=== PATIENT | male | born 1960 | race Caucasian/White ===

== ENCOUNTER 2022-07-19 22:31 | Emergency (ER) | payer OTHER, SELFPAY ==
[2022-07-19 22:32] VITALS: BP 173/110; PULSE 77; RESP 16; TEMP 36.8; O2SAT 96; BMI 35.9
[2022-07-19] MEDS: Diphth,Pertuss(Acell),Tet Vac 0.5 ML Vial IM (23:16)
--- NOTE | 2022-07-20 00:34 | EX.ED.GENINJ ---
HPI History of Present Illness Chief Complaint: Laceration Informant: patient Narrative Narrative: About 7 or 8 hours ago the patient cut the skin on the tip of his right dominant hand ring finger when he was prying on a piece of metal. He did clean it and clean it with hydrogen peroxide. Last tetanus is probably greater than 10 years ago. His encouraged him to come in to get this taken care of. No other injury. It bled a little bit but compression and cleaning made it better. PFSH PFSH Medical History Laceration Allergy/AdvReac Type Severity Reaction Status Date / Time No Known Allergies Allergy Verified 07/19/22 22:33 Social History Smoking Status: Unknown if ever smoked ROS ROS ED Constitutional Constitutional ED: Denies chills or fever(s) Cardiovascular Cardiovascular: Denies chest pain Respiratory/Chest Respiratory/Chest: Denies cough Gastrointestinal Gastrointestinal: Denies nausea or vomiting Integumentary Reports other Details: See history of present illness. Neurologic Neurologic: Denies paresthesias or weakness Hematologic/Lymphatic Hematologic/Lymphatic: Denies easy bleeding or easy bruising EXAM Physical Exam Narrative Exam Narrative: Patient awake alert appropriate no acute distress sitting quietly in chair. HEENT shows no sign of trauma Lungs are clear breathing is easy and unlabored Heart rate is regular Evaluation extremities does reveal a C shaped laceration on the very distal tuft of his right ring finger. This is approximately 300 out of 360 degrees around. It is somewhat devitalized but still has a little bit of pink chest in the center. But I question its overall survivability. Range of motion of the finger including both flexor tendons and extensor tendon are normal. Sensation is intact. No sign of other injuries. Const Vital Signs: 07/19/22 22:32 Temperature 98.2 F Temperature Source Temporal Pulse Rate 77 Respiratory Rate 16 Blood Pressure 173/110 H Blood Pressure Mean 131 Pulse Ox 96 Oxygen Delivery Method Room Air MDM MDM MDM Narrative Medical decision making narrative: Procedure: Wound closure: Discussed options with the patient. We discussed using suturing but the flap is already adhered down. I am afraid suturing would place further holes in possibly further devitalized a thin flap that I already have questions of survivability. For this reason we did choose to glue around most of it leaving the area next to the nail unglued that would allow for drainage. The area was scrubbed and cleaned. I dried it. I put 3 layers of tissue adhesive. He tolerated this well. We explained care cleaning and keeping it covered. Return with redness swelling odor drainage fever swelling up the finger or red streaking up finger or arm. I have also explained to the patient that I question the survivability of this flap. But I would like to see if we can get tissue coverage to provide a better result. He had even mention just cutting off the bed that is remaining. But I think we have a better chance of survival than not. If we get survivability of this flap I think his overall outcome is better. Discharge Plan Triage Chief Complaint: Laceration ED Provider: Terence Mckeon Dx/Rx/DC Orders Clinical Impression: Laceration of right ring finger Instructions: ED Laceration: Skin Adhesive Primary Care Provider: Lisa Gonsales Referrals: Lisa Gonsales DO [Primary Care Provider] - 1 Week if not improving Disposition Disposition: Home, Self Care
== END 2022-07-20 00:52 | disposition home or self-care (01) ==
PROVIDERS: Emergency Provider Emergency Medicine; PCP Family Medicine; Visit Provider Emergency Medicine
DX: S61.214A Laceration without foreign body of right ring finger without damage to nail, initial encounter (principal); Z23 Encounter for immunization; W26.8XXA Contact with other sharp object(s), not elsewhere classified, initial encounter
CPT/HCPCS: 90471; 90715; 99282

== ENCOUNTER 2023-12-04 18:29 | Emergency (ER) | payer OTHER, SELFPAY ==
[2023-12-04] VITALS (8 sets, daily range): BP systolic 105–165; BP diastolic 68–133; PULSE 60–147; RESP 14–17; TEMP 36.1–36.3; O2SAT 92–98; BMI 37.7
--- NOTE | 2023-12-04 18:50 | EKG12_ITS ---
Test Reason : CP Blood Pressure : / mmHG Vent. Rate : 114 BPM Atrial Rate : 000 BPM P-R Int : 000 ms QRS Dur : 086 ms QT Int : 312 ms P-R-T Axes : 000 035 066 degrees QTc Int : 430 ms Atrial fibrillation with rapid ventricular response with premature ventricular or aberrantly conducte d complexes Nonspecific ST abnormality Abnormal ECG Confirmed by ALONDRA CALDWELL, MAYO ([id number]), newspaper editor DORINDA TATE ([id number]) on 12/07/2023 8:49:23 AM Referred By: Confirmed By:MAYO CANTU MD
--- NOTE | 2023-12-04 18:52 | ED.VIS.CHEST ---
HPI History of Present Illness Chief Complaint: Chest Pain Informant: patient, spouse/S.O. and family Narrative Narrative: Presents substernal chest tightness and sweatiness and half hour prior to arrival. Denies dyspnea or any radicular pain down his arm. Denies racing heart. With abnormal symptoms for months cannot recall the last time. States sometimes knows was eating. He states 2 days ago was chasing a groundhog he had transient symptoms. Sweats are new today. History of hypertension hyperlipidemia denies diabetes but denies tobacco. Denies family history of MIs at young age. Social alcohol history however quit drinking for a while now. Stress test 2 years ago no history of heart caths. Currently denies any symptoms. Reports was lifting a 5 gallon gas tank when he felt symptoms today. Prior Similar Symptoms: Yes CVD Risk Factors: Positive for Hypertension and Hypercholesterolemia; Negative for Diabetes, Family History 1' </=55 or Smoking PE Risk Factors: Negative for Recent Travel/Surgery, Recent Immobilization, Prior DVT or PE, Cancer or OCP + Smoking + >/=35 PFSH PFSH Medical History Laceration Home Medications ?Medication ?Instructions ?Recorded ?Last Taken ?Type apixaban 5 mg tablet (Eliquis) 5 mg PO BID #60 tabs 12/04/23 Unknown Rx lisinopril 20 mg tablet 20 mg PO DAILY 12/04/23 Unknown History omega 5-ola-ien-fish oil 300 2 cap PO BID 12/04/23 Unknown History mg-1,000 mg capsule (Fish Oil) pravastatin 40 mg tablet 40 mg PO DAILY 12/04/23 Unknown History Allergy/AdvReac Type Severity Reaction Status Date / Time No Known Allergies Allergy Verified 12/04/23 18:32 Social History Smoking Status: Never smoker ROS ROS ED Constitutional Constitutional ED: Denies chills, fever(s) or sweats Eyes Eyes: Denies change in vision ENT ENT ED: Denies dysphagia or sore throat Cardiovascular Cardiovascular: Reports chest pain; Denies leg edema, palpitations or racing heartbeat Respiratory/Chest Respiratory/Chest: Denies cough, dyspnea or dyspnea on exertion Gastrointestinal Gastrointestinal: Denies abdominal pain, diarrhea, nausea or vomiting Genitourinary Genitourinary ED: Denies dysuria, hematuria or urinary frequency Musculoskeletal Musculoskeletal: Denies back pain, extremity pain or neck pain Integumentary Denies rash or wounds Neurologic Neurologic: Denies headache(s), paresthesias or weakness EXAM Physical Exam Const Vital Signs: 12/04/23 18:30 12/04/23 18:30 12/04/23 18:46 Temperature 97 F L Temperature Source Temporal Pulse Rate 147 H 131 H Respiratory Rate 16 14 Blood Pressure 165/127 H 153/133 H 128/87 H Blood Pressure Mean 139 139 100 Pulse Ox 98 92 Oxygen Delivery Method Room Air Room Air 12/04/23 18:53 12/04/23 19:11 12/04/23 19:26 Temperature Temperature Source Pulse Rate 93 77 Respiratory Rate Blood Pressure 117/80 Blood Pressure Mean 92 Pulse Ox 92 Oxygen Delivery Method Room Air 12/04/23 20:00 12/04/23 21:00 12/04/23 22:00 Temperature Temperature Source Pulse Rate 82 61 60 Respiratory Rate 17 16 16 Blood Pressure 107/68 105/76 126/74 H Blood Pressure Mean 81 85 91 Pulse Ox 97 98 98 Oxygen Delivery Method Room Air Room Air Room Air 12/04/23 22:00 Temperature 97.3 F L Temperature Source Pulse Rate 60 Respiratory Rate 16 Blood Pressure 126/74 H Blood Pressure Mean 91 Pulse Ox 98 Oxygen Delivery Method Positive well nourished and well developed General Appearance ED: well developed and NAD HEENT Reports moist mucous membranes normocephalic and atraumatic Eyes EOMs intact bilaterally and conjunctivae normal General Eye ED: Yes normal appearance of both eyes Neck no lymphadenopathy and supple General: Negative for tenderness Chest Wall Chest: Negative for tenderness Resp normal respiratory effort and normal air movement Effort and Inspection: symmetric chest movement; Negative for respiratory distress Cardio no murmurs Rate: tachycardic Rhythm: abnormal rhythm Peripheral Pulses: pulses 2+ throughout GI normal to inspection, nondistended, normoactive bowel sounds and non-tender Palpation: Negative for guarding or rebound tenderness present Back/Spine no CVA tenderness and no thoracic nor lumbar tenderness Extremity normal to inspection General Extremety ED: Negative for edema or tenderness General Extremity: Negative for edema Neuro oriented x3 and no sensory deficits noted Sensorium / Orientation: awake and alert Skin no rashes or lesions noted and no wounds MDM MDM MDM Narrative Medical decision making narrative: Interventions / MDM: Differential diagnosis: Diagnosis considered but do not suspect: N/A My EKG interpretation: A-fib RVR rate of 114, no ST or T wave changes. EKG #2 at 2052 normal sinus rhythm rate of 68, no ST or T wave changes. Imaging independently reviewed and interpreted by myself: N/A External documents reviewed: N/A Test considered but not ordered:N/A ED course: Patient transient chest pain EKG A-fib with RVR. He denies palpitation symptoms. Blood pressure systolic 120s. Cardiac workup initiated will start Lopressor IV. Aspirin given for chest pains. With patient reporting intermittent chest symptoms on and off for the last month, and asymptomatic on his A-fib, unclear if he is having paroxysmal A-fib with his chest symptoms. Therefore we will hold off any cardioversion as blood pressure stable at this time. 2039: Status post 1 dose of Lopressor initial heart enzyme -1 view chest x-ray negative. Labs with creatinine of 2.0. No old for comparison. Patient does report chronic kidney disease stage III however unknown if ARB. He is currently with a GFR of 34, stage 3B. Has been no recent vomiting or diarrhea. Will give him IV fluids in case this is slightly worse than his previous. Blood pressure stable. On the media monitor he is in sinus rhythm rate in the high 50s. Will repeat EKG. He remains symptom-free. Repeat EKG now sinus rhythm. Was started on Eliquis. Awaiting delta troponin. Delta troponin negative per algorithm. Remains chest pain-free. Remains in sinus rhythm. Unable to start beta-blockers as he is already low on his heart rate. Prescription for Eliquis sent to his pharmacy. Cardiology follow-up given. Return precautions. All questions were answered. Re-evaluation: stable Disposition discussed with patient/family/significant other: Patient and significant other Case discussed with consulting clinician: N/A This note was generated with [employer] dictation software. It may contain incorrect words, spelling, and punctuation that were not noted in checking the note before signing. Lab Data Attestation: I reviewed the patient's lab results. Labs: Laboratory Results - last 24 hr 12/04/23 12/04/23 18:55 21:00 WBC 10.1 RBC 5.45 Hgb 16.5 Hct 46.7 MCV 85.7 MCH 30.3 MCHC 35.3 RDW Std Deviation 37.8 RDW Coeff of Ghulam 12.3 Plt Count 220 MPV 9.4 Immature Gran % (Auto) 0.400 Neut % (Auto) 63.2 Lymph % (Auto) 26.4 [place] % (Auto) 7.1 Eos % (Auto) 2.0 Baso % (Auto) 0.9 Absolute Neuts (auto) 6.4 Absolute Lymphs (auto) 2.67 Nucleated RBC % 0 PT 12.6 INR 0.9 APTT 27.7 Sodium 137 Potassium 3.9 Chloride 106 Carbon Dioxide 22.0 Anion Gap 9 BUN 29 H Creatinine 2.08 H Estim Creat Clear Calc 49.87 Est GFR (MDRD) Af Amer 42 L Est GFR (MDRD) Non-Af 34 L BUN/Creatinine Ratio 13.9 Glucose 266 H Calcium 9.1 Troponin I High Sens 13 26 TSH 2.05 Radiography Diagnostic Testing: Clinical Impression(s) from Imaging Studies Chest X-Ray 12/04/23 19:05 IMPRESSION: 1. Shallow inspiration mild basilar atelectasis. No focal infiltrate consolidation or effusion. Electronically Signed: Russell Mejia MD at 21:41 EDT , Discharge Plan Triage Chief Complaint: Chest Pain Other Complaint: Palpitations ED Provider: Isaias Carrion Dx/Rx/DC Orders Clinical Impression: Paroxysmal atrial fibrillation, Chest pain, CKD (chronic kidney disease) stage 3, GFR 30-59 ml/min Instructions: CKD Dc, AFib Preventing Stroke, ED Chest Pain, Uncertain Cause Prescriptions: New Eliquis 5 mg tablet 5 mg PO BID Qty: 60 0RF No Action pravastatin 40 mg tablet 40 mg PO DAILY lisinopril 20 mg tablet 20 mg PO DAILY omega 0-tjz-szq-fish oil [Fish Oil] 300-1,000 mg capsule 2 cap PO BID Primary Care Provider: Lisa Gonsales Referrals: Lisa Gonsales DO [Primary Care Provider] - Herb Alejandra MD [Med Staff - Active Staff] - 1 Week Activity Restrictions/Additional Instructions: You were in atrial fibrillation you spontaneously converted after 1 dose of Lopressor IV. Your creatinine 2 with a GFR 34. You have history of CKD stage III. Discussed with your PCP what your baseline numbers are. Status post IV fluids. Take Eliquis twice a day as prescribed. Avoid NSAIDs. May use Tylenol or acetaminophen for pain issues. Follow-up with cardiology. If your symptoms recur or worsens, return to the ED for reevaluation. Print Language: Andorran Disposition Disposition: Home, Self Care Discharge Date/Time: 12/04/23 22:02
[2023-12-04] MEDS: Aspirin 81 MG TAB.CHEW 324 MG PO (18:58)
[2023-12-04] MEDS: Metoprolol Tartrate 5 MG/5 ML Vial IV (18:59)
[2023-12-04 19:04] LABS: Absolute Lymphocyte Count 2.67 X10^3/uL (0.83-4.51); Absolute Neutrophil Count 6.4 X10^3/uL (2.0-7.7); Basophil# 0.09 X10^3/uL; Basophil% 0.9 % (0-1); Hematocrit 46.7 % (40-54); Hemoglobin 16.5 g/dL (13.0-16.5); Lymphocyte # 2.67 X10^3/ul (0.83-4.51); Lymphocyte % 26.4 % (19-41); Mean Corp Hgb Conc 35.3 g/dL (32-36); Mean Corpuscular Hgb 30.3 pg (27.0-32.0); Mean Corpuscular Volume 85.7 fL (80-94); Mean Platelet Vol. 9.4 fl (6.2-12.0); Monocyte# 0.72 X10^3/uL; Monocyte% 7.1 % (0-10); NRBC Flagged by Analyzer 0 % (0-5); Neutrophil # 6.39 X10^3/uL (2.7-7.7); Neutrophil % 63.2 % (47-70); Platelet Count 220 K/mm3 (150-450); RBC Distribution Width CV 12.3 % (11.6-14.6); RBC Distribution Width SD 37.8 fl (35.1-43.9); Red Blood Count 5.45 M/mm3 (4.6-6.2); White Blood Count 10.1 K/mm3 (4.4-11.0)
--- NOTE | 2023-12-04 19:05 | RAD_ITS ---
INDICATION: chest pain EXAMINATION/TECHNIQUE: X-RAY - XR Chest 1 View COMPARISON: No previous relevant examinations available for comparison.. FINDINGS: LIFE-SUPPORT AND LINES: 1. None HEART AND VESSELS: The cardiac silhouette, pulmonary vasculature have normal appearance. No evidence of congestive failure. LUNGS AND PLEURAL SPACES: Lungs are clear. No focal infiltrate, consolidation or effusions. No evidence of pneumothorax. Shallow inspiration mild basilar atelectasis without focal infiltrate or consolidation. MEDIASTINUM AND HILAR REGIONS: No masses adenopathy noted. No areas of calcification. Visualized upper airway is normal in position. BONY ELEMENTS: No acute bony changes noted. RAD/Chest 1 View (Portable) IMPRESSION: 1. Shallow inspiration mild basilar atelectasis. No focal infiltrate consolidation or effusion. Electronically Signed: Russell Mejia MD at 21:41 EDT ,
[2023-12-04 19:11] LABS: International Normalized Ratio 0.9; Prothrombin Time (Protime)PT. 12.6 SECONDS (11.7-14.9)
[2023-12-04 19:12] LABS: Partial Thromboplast Time 27.7 Seconds (24.1-36.2)
[2023-12-04 19:39] LABS: Anion Gap 9 (5-15); BUN 29 mg/dL (7-18); BUN/Creat Ratio 13.9 RATIO (10-20); Calcium,Total 9.1 mg/dL (8.5-10.1); Chloride 106 mmol/L (98-107); Creatinine, Serum 2.08 mg/dL (0.70-1.30); EST Glomerular Filtration Rate 34 mL/min (>60); Est Glom Filt Rate - Afr Amer 42 mL/min (>60); Estimated Creatinine Clearance 49.87 ml/min; Glucose 266 mg/dL (74-106); Potassium 3.9 mmol/L (3.5-5.1); Sodium Level 137 mmol/L (136-145); Thyroid Stim Hormone (TSH) 2.05 uIU/mL (0.358-3.74); Troponin-I HS (w/2H Reflex) 13 pg/mL (3.0-78.0)
--- NOTE | 2023-12-04 20:43 | EKG12_ITS ---
Test Reason : REPEAT Blood Pressure : / mmHG Vent. Rate : 068 BPM Atrial Rate : 068 BPM P-R Int : 176 ms QRS Dur : 090 ms QT Int : 384 ms P-R-T Axes : 056 006 055 degrees QTc Int : 408 ms Normal sinus rhythm with sinus arrhythmia Normal ECG Confirmed by ALONDRA CALDWELL, MAYO ([id number]), photograph editor DORINDA TATE ([id number]) on 12/07/2023 8:49:36 AM Referred By: Confirmed By:MAYO CANTU MD
[2023-12-04 20:58] LABS: Reflex Troponin-HS? (from REC) Y
[2023-12-04] MEDS: APIXABAN 5 MG TABLET PO (21:16)
[2023-12-04] MEDS: 0.9% Normal Saline (1000mL) 1,000 ML 999 ML IV (21:16)
--- NOTE | 2023-12-04 21:23 | ED.RN ---
[id number] called radiology to inquire re: xray results
[2023-12-04 21:46] LABS: Troponin-I HS 26 pg/mL (3.0-78.0)
== END 2023-12-04 22:02 | disposition home or self-care (01) ==
PROVIDERS: Emergency Provider Emergency Medicine; PCP Family Medicine; Visit Provider Emergency Medicine
DX: R07.9 Chest pain, unspecified (principal); I48.0 Paroxysmal atrial fibrillation; E11.22 Type 2 diabetes mellitus with diabetic chronic kidney disease; N18.30 Chronic kidney disease, stage 3 unspecified; E78.00 Pure hypercholesterolemia, unspecified; I12.9 Hypertensive chronic kidney disease with stage 1 through stage 4 chronic kidney disease, or unspecified chronic kidney disease; Z79.01 Long term (current) use of anticoagulants; Z79.899 Other long term (current) drug therapy
CPT/HCPCS: 71045; 80048; 84443; 84484; 85025; 85610; 85730; 93005; 96361; 96374; 99284; J7030; A4216

== ENCOUNTER 2023-12-09 19:37 | Emergency (ER) | payer OTHER, SELFPAY ==
[2023-12-09 19:38] VITALS: BP 146/81; PULSE 84; RESP 12; TEMP 36.2; O2SAT 100; BMI 28.5
--- NOTE | 2023-12-09 19:41 | EKG12_ITS ---
Test Reason : CP Blood Pressure : / mmHG Vent. Rate : 082 BPM Atrial Rate : 082 BPM P-R Int : 176 ms QRS Dur : 094 ms QT Int : 368 ms P-R-T Axes : 062 034 074 degrees QTc Int : 429 ms Normal sinus rhythm Normal ECG Confirmed by Herb Alejandra ([id number]), editorial project manager DORINDA TATE ([id number]) on 12/11/2023 7:23:23 AM Referred By: TRAN Confirmed By:Herb Alejandra
--- NOTE | 2023-12-09 19:50 | RAD_ITS ---
STUDY: X-RAY CHEST REASON FOR EXAM: Male, 63 years old. chest pain TECHNIQUE: Single AP portable view of the chest. COMPARISON: 12/04/2023 FINDINGS: The lungs are clear and expanded. There is no demonstrated pleural abnormality. Normal size heart. Normal mediastinum and ivon. Normal visualized pulmonary arteries. Normal visualized aortic arch and descending thoracic aorta. Normal visualized thoracic spine. Normal visualized ribs, clavicles, and shoulders. There is no demonstrated abnormality of the visualized soft tissue structures of the upper abdomen. RAD/Chest 1 View (Portable) IMPRESSION: Normal x-ray examination of the chest. Electronically Signed: Darci Groves MD at 20:11 EDT ,
[2023-12-09 20:19] LABS: Absolute Lymphocyte Count 2.66 X10^3/uL (0.83-4.51); Absolute Neutrophil Count 5.1 X10^3/uL (2.0-7.7); Basophil# 0.07 X10^3/uL; Basophil% 0.8 % (0-1); Eosinophil# 0.17 X10^3/uL; Hematocrit 48.1 % (40-54); Hemoglobin 16.7 g/dL (13.0-16.5); Lymphocyte # 2.66 X10^3/ul (0.83-4.51); Lymphocyte % 31.4 % (19-41); Mean Corp Hgb Conc 34.7 g/dL (32-36); Mean Corpuscular Hgb 30.3 pg (27.0-32.0); Mean Corpuscular Volume 87.1 fL (80-94); Monocyte# 0.42 X10^3/uL; NRBC Flagged by Analyzer 0 % (0-5); Neutrophil # 5.14 X10^3/uL (2.7-7.7); Neutrophil % 60.7 % (47-70); Platelet Count 199 K/mm3 (150-450); RBC Distribution Width CV 12.2 % (11.6-14.6); RBC Distribution Width SD 38.9 fl (35.1-43.9); Red Blood Count 5.52 M/mm3 (4.6-6.2); White Blood Count 8.5 K/mm3 (4.4-11.0)
--- NOTE | 2023-12-09 20:22 | EDS_ITS ---
HPI History of Present Illness Chief Complaint: Chest Pain Informant: patient and spouse/S.O. Narrative Narrative: Patient had left-sided chest discomfort that lasted 10-20 minutes, it occurred about an hour ago and he had no other associated symptoms. He was here for 5 days ago with a more significant episode of chest discomfort that was associated with more symptoms, he was diagnosed with A-fib and placed on Eliquis. After getting metoprolol in the ER he converted, and his pulse was in the 50s so he was not sent home on any AV mynor blockers. Tonight his checked his pulse and it felt irregular so they return. He is asymptomatic at this time. He has a cardiology appointment scheduled for December, no history of cardiac problems prior to all of this. He did not feel any palpitations or irregularity in his chest or syncope/presyncope today. No recent illness. [facility] Medical History Hyperlipidemia Diabetes mellitus Hypertension Atrial fibrillation Laceration Home Medications ?Medication ?Instructions ?Recorded ?Last Taken ?Type apixaban 5 mg tablet (Eliquis) 5 mg PO BID #60 tabs 12/04/23 Unknown Rx lisinopril 20 mg tablet 20 mg PO DAILY 12/04/23 Unknown History omega 9-yuf-pya-fish oil 300 2 cap PO BID 12/04/23 Unknown History mg-1,000 mg capsule (Fish Oil) pravastatin 40 mg tablet 40 mg PO DAILY 12/04/23 Unknown History diltiazem HCl 120 mg 120 mg PO DAILY #30 caps 12/09/23 Unknown Rx capsule,extended release 24 hr (Cardizem CD) metformin 500 mg tablet,extended 500 mg PO DAILY 12/09/23 Unknown History release 24 hr Allergy/AdvReac Type Severity Reaction Status Date / Time No Known Allergies Allergy Verified 12/09/23 19:44 Social History Smoking Status: Never smoker ROS ROS ED Constitutional Constitutional ED: Denies chills or fever(s) Eyes Eyes: Denies change in vision or diplopia ENT ENT ED: Denies rhinorrhea or sore throat Cardiovascular Cardiovascular: Reports as per HPI and chest pain; Denies palpitations or syncope Respiratory/Chest Respiratory/Chest: Denies cough or dyspnea Gastrointestinal Gastrointestinal: Denies abdominal pain, diarrhea, nausea or vomiting Genitourinary Genitourinary ED: Denies dysuria or hematuria Musculoskeletal Musculoskeletal: Denies back pain or neck pain Integumentary Denies abscess or rash Neurologic Neurologic: Denies headache(s), paresthesias or weakness Psychiatric Psychiatric: Denies anxiety or suicidal thoughts EXAM Physical Exam Const Vital Signs: 12/09/23 19:38 12/09/23 19:38 12/09/23 20:16 Temperature 97.1 F L Temperature Source Temporal Pulse Rate 84 84 Respiratory Rate 12 12 Respiratory Effort Normal Respiratory Pattern Normal Blood Pressure 146/81 H 146/81 H Blood Pressure Mean 102 102 Pulse Ox 100 100 Oxygen Delivery Method Room Air Room Air 12/09/23 20:18 12/09/23 20:37 12/09/23 21:00 Temperature Temperature Source Pulse Rate 88 64 Respiratory Rate 16 16 Respiratory Effort Respiratory Pattern Blood Pressure 119/69 111/75 Blood Pressure Mean 85 87 Pulse Ox 92 92 Oxygen Delivery Method Room Air Room Air Room Air 12/09/23 22:00 Temperature Temperature Source Pulse Rate 87 Respiratory Rate 16 Respiratory Effort Respiratory Pattern Blood Pressure 119/69 Blood Pressure Mean 85 Pulse Ox 92 Oxygen Delivery Method Room Air Positive well nourished and well developed General Appearance ED: well developed and NAD HEENT Reports moist mucous membranes normocephalic and atraumatic Eyes PERRL and EOMs intact bilaterally Neck full ROM and supple Resp normal respiratory effort and clear to auscultation bilaterally Cardio regular rate and regular rhythm Heart Sounds: murmur systolic I/ soft left sternal border Peripheral Pulses: pulses 2+ throughout GI non-tender and non-distended Auscultation: normoactive bowel sounds Palpation: soft Back/Spine no CVA tenderness General Back: other FROM Extremity normal to inspection General Extremety ED: Negative for edema, pulses abnormal or tenderness General Extremity: Negative for edema or pulses abnormal Neuro oriented x3, CN's II-XII intact bilaterally and no sensory deficits noted Sensorium / Orientation: awake and alert Motor Exam: strength 5/5 throughout Skin no rashes or lesions noted and no wounds Heart Score History: Slightly/Non-Suspicious ECG: Normal Age: >45 - <65 years Risk Factors: >/= 3 Risk Factors or History of CAD Troponin: </= Normal Limit Score: 3 MDM MDM MDM Narrative Medical decision making narrative: Upon putting the patient on the monitor in the ED, he is in sinus rhythm and his EKG is normal. He was monitored while we ran 2 sets of troponins and basic labs. When comparing to his labs from 5 days ago, his creatinine is similar, from 2-2.11. His initial troponin is within normal limits at 13. He is a little hyperglycemic to 47 he has a history of diabetes. He remained asymptomatic throughout his ED stay with no further episodes of chest discomfort, no dyspnea, no episodes of atrial fibrillation. Certainly could have been in atrial fibrillation earlier, unknown. When he was in atrial fibrillation 5 days ago, he had more symptoms and they were more significant t genao they were today. He has already started Eliquis. His pulse is in the 80s, states it is not uncommon for him to be in the 60s. He was in the 50s after a single dose of metoprolol during his last visit, so I we will give him a prescription for Cardizem CD 120 once daily, and advised that he periodically check his pulse especially if he is feeling lightheaded. He and are okay with that plan. We did a delta troponin it is negative, he is stable for discharge and outpatient follow-up as scheduled with cardiology. History & Record Review Additional record(s) reviewed:: Prior ED visit Lab Data Attestation: I reviewed the patient's lab results. Labs: Laboratory Results - last 24 hr 12/09/23 12/09/23 20:15 22:15 WBC 8.5 RBC 5.52 Hgb 16.7 H Hct 48.1 MCV 87.1 MCH 30.3 MCHC 34.7 RDW Std Deviation 38.9 RDW Coeff of Ghulam 12.2 Plt Count 199 MPV 9.0 Immature Gran % (Auto) 0.100 Neut % (Auto) 60.7 Lymph % (Auto) 31.4 [place] % (Auto) 5.0 Eos % (Auto) 2.0 Baso % (Auto) 0.8 Absolute Neuts (auto) 5.1 Absolute Lymphs (auto) 2.66 Nucleated RBC % 0 Sodium 135 L Potassium 3.7 Chloride 103 Carbon Dioxide 27.0 Anion Gap 5 BUN 28 H Creatinine 2.11 H Estim Creat Clear Calc 42.91 Est GFR (MDRD) Af Amer 41 L Est GFR (MDRD) Non-Af 34 L BUN/Creatinine Ratio 13.3 Glucose 247 H Calcium 9.2 Troponin I High Sens 13 12 Radiography Diagnostic Testing: Clinical Impression(s) from Imaging Studies Chest X-Ray 12/09/23 19:50 IMPRESSION: Normal x-ray examination of the chest. Electronically Signed: Darci Groves MD at 20:11 EDT , Rhythm Strip Rhythm Strip: Sinus Rhythm Rate: 80 Ectopy: None EKG Initial EKG: Attestation: I personally reviewed and interpreted this EKG as follows: Interpretation: Sinus Rhythm and No Acute Injury Pattern Comments: normal EKG Discharge Plan Triage Chief Complaint: Chest Pain Other Complaint: Palpitations ED Provider: Liborio Urbina Dx/Rx/DC Orders Clinical Impression: Chest pain, Paroxysmal atrial fibrillation, CKD (chronic kidney disease) stage 3, GFR 30-59 ml/min Instructions: ED Chest Pain, Uncertain Cause Prescriptions: New diltiazem HCl [Cardizem CD] 120 mg capsule,extended release 24hr 120 mg PO DAILY Qty: 30 0RF No Action metformin 500 mg tablet extended release 24 hr 500 mg PO DAILY Patient Comments: gives patient constipation so he does not take it pravastatin 40 mg tablet 40 mg PO DAILY lisinopril 20 mg tablet 20 mg PO DAILY omega 3-mgj-wru-fish oil [Fish Oil] 300-1,000 mg capsule 2 cap PO BID Eliquis 5 mg tablet 5 mg PO BID Qty: 60 0RF Primary Care Provider: Lisa Gonsales Referrals: Maury Lange MD [Med Staff - Active Staff] - Keep Analia appointment Lisa Gonsales DO [Primary Care Provider] - Print Language: Maldivian Disposition Disposition: Home, Self Care
[2023-12-09 20:37] VITALS: BP 119/69; PULSE 88; RESP 16; O2SAT 92
[2023-12-09 20:37] LABS: Anion Gap 5 (5-15); BUN 28 mg/dL (7-18); BUN/Creat Ratio 13.3 RATIO (10-20); Calcium,Total 9.2 mg/dL (8.5-10.1); Chloride 103 mmol/L (98-107); Creatinine, Serum 2.11 mg/dL (0.70-1.30); EST Glomerular Filtration Rate 34 mL/min (>60); Est Glom Filt Rate - Afr Amer 41 mL/min (>60); Estimated Creatinine Clearance 42.91 ml/min; Glucose 247 mg/dL (74-106); Potassium 3.7 mmol/L (3.5-5.1); Sodium Level 135 mmol/L (136-145); Troponin-I HS (w/2H Reflex) 13 pg/mL (3.0-78.0)
[2023-12-09 21:00] VITALS: BP 111/75; PULSE 64; RESP 16; O2SAT 92
[2023-12-09 22:00] VITALS: BP 119/69; PULSE 87; RESP 16; O2SAT 92
[2023-12-09 22:16] LABS: Reflex Troponin-HS? (from REC) Y
[2023-12-09 22:54] LABS: Troponin-I HS 12 pg/mL (3.0-78.0)
[2023-12-09 23:00] VITALS: BP 119/69; PULSE 87; RESP 16; TEMP 36.6; O2SAT 92
== END 2023-12-09 23:10 | disposition home or self-care (01) ==
PROVIDERS: Emergency Provider Emergency Medicine; PCP Family Medicine; Visit Provider Emergency Medicine
DX: I48.0 Paroxysmal atrial fibrillation (principal); E11.22 Type 2 diabetes mellitus with diabetic chronic kidney disease; E11.65 Type 2 diabetes mellitus with hyperglycemia; N18.30 Chronic kidney disease, stage 3 unspecified; I12.9 Hypertensive chronic kidney disease with stage 1 through stage 4 chronic kidney disease, or unspecified chronic kidney disease; E78.5 Hyperlipidemia, unspecified; Z79.01 Long term (current) use of anticoagulants; Z79.84 Long term (current) use of oral hypoglycemic drugs; Z79.899 Other long term (current) drug therapy
CPT/HCPCS: 71045; 80048; 84484; 85025; 93005; 99284; A4216

== ENCOUNTER 2024-01-19 21:36 | Emergency (ER) | payer OTHER, SELFPAY ==
[2024-01-19 21:37] VITALS: BP 128/91; PULSE 71; RESP 18; TEMP 36.4; O2SAT 96; BMI 35.1
--- NOTE | 2024-01-19 22:18 | EKG12_ITS ---
Test Reason : DYSRHYTHMIA Blood Pressure : / mmHG Vent. Rate : 099 BPM Atrial Rate : 000 BPM P-R Int : 000 ms QRS Dur : 096 ms QT Int : 360 ms P-R-T Axes : 000 057 134 degrees QTc Int : 462 ms Atrial fibrillation Incomplete right bundle branch block T wave abnormality, consider lateral ischemia Abnormal ECG Confirmed by ALONDRA CALDWELL, MAYO ([id number]), editorial director MARISSA ALEXANDER ([id number]) on 01/20/2024 8:58:28 AM Referred By: VIRGINIE Confirmed By:MAYO CANTU MD
--- NOTE | 2024-01-19 22:33 | EX.ED.DYSGE1 ---
HPI History of Present Illness Chief Complaint: Palpitations Informant: patient and spouse/S.O. Narrative Narrative: Patient presents secondary to palpitations. He has a history of paroxysmal A-fib and is currently on Eliquis. He is not currently anything for rate control because his resting heart rate is low. Patient had a double bypass on December 22 at [facility]. He is scheduled to see his sap bw bi developer in 2 days. The home health nurse came out today and noted his heart rate was irregular and wanted him to come in to have it documented. He denies chest pain or shortness of breath. He states he feels somewhat fatigued. [facility] Medical History (Updated 01/19/24 @ 23:[address] Anuradha Loomis MD) Kidney disease Irregular heart beat Coronary artery disease Hyperlipidemia Diabetes mellitus Hypertension Atrial fibrillation Laceration Home Medications ?Medication ?Instructions ?Recorded ?Last Taken ?Type apixaban 5 mg tablet (Eliquis) 5 mg PO BID #60 tabs 12/04/23 Unknown Rx omega 0-eyz-wzo-fish oil 300 2 cap PO BID 12/04/23 Unknown History mg-1,000 mg capsule (Fish Oil) pravastatin 40 mg tablet 80 mg PO QHS 12/04/23 Unknown History diltiazem HCl 120 mg 120 mg PO DAILY #30 caps 12/09/23 Unknown Rx capsule,extended release 24 hr (Cardizem CD) aspirin 81 mg tablet,delayed 81 mg PO DAILY 01/19/24 Unknown History release (Adult Aspirin Regimen) colchicine 0.6 mg tablet 0.6 mg PO DAILY 01/19/24 Unknown History empagliflozin 25 mg tablet 25 mg PO DAILY 01/19/24 Unknown History (Jardiance) multivitamin 1 tab PO DAILY 01/19/24 Unknown History pantoprazole 40 mg tablet,delayed 40 mg PO DAILY 01/19/24 Unknown History release Allergy/AdvReac Type Severity Reaction Status Date / Time No Known Allergies Allergy Verified 01/19/24 21:37 Surgical History (Updated 01/19/24 @ 23:04 by Lynda Holman) S/P hernia repair Hx of CABG Social History Smoking Status: Never smoker ROS ROS ED Constitutional Constitutional ED: Denies chills or fever(s) Eyes Eyes: Denies change in vision ENT ENT ED: Denies rhinorrhea or sore throat Cardiovascular Cardiovascular: Reports palpitations; Denies chest pain Respiratory/Chest Respiratory/Chest: Denies cough or dyspnea Gastrointestinal Gastrointestinal: Denies abdominal pain, diarrhea or vomiting Musculoskeletal Musculoskeletal: Denies back pain Neurologic Neurologic: Denies headache(s) Psychiatric Psychiatric: Denies anxiety or depression Allergic/Immunologic Allergic/Immunologic ED: Denies mouth swelling or tongue swelling EXAM Physical Exam Const Vital Signs: 01/19/24 21:37 01/19/24 22:56 01/19/24 23:00 Temperature 97.6 F L Temperature Source Temporal Pulse Rate 71 92 104 H Respiratory Rate 18 21 H 24 H Blood Pressure 128/91 H 119/78 Blood Pressure Mean 103 90 Pulse Ox 96 95 95 Oxygen Delivery Method Room Air 01/19/24 23:15 01/19/24 23:30 01/19/24 23:44 Temperature 98.4 F Temperature Source Pulse Rate 93 74 72 Respiratory Rate 21 H 30 H 16 Blood Pressure 122/80 H 122/80 H Blood Pressure Mean 94 94 Pulse Ox 95 95 96 Oxygen Delivery Method Room Air Positive well nourished and well developed General Appearance ED: well developed HEENT Reports moist mucous membranes Eyes EOMs intact bilaterally Chest Wall palpation of chest normal Chest Narrative: Healing surgical incisions from his recent surgery. No sign of infection. Resp normal respiratory effort and clear to auscultation bilaterally Cardio Rhythm: abnormal rhythm irregularly irregular GI non-tender Palpation: soft Extremity normal to inspection Neuro oriented x3 and no sensory deficits noted Motor Exam: strength 5/5 throughout MDM MDM MDM Narrative Medical decision making narrative: Patient placed on adult secondary education instructor. His heart rate is right around 100 with underlying atrial fibrillation at this time. IV line initiated. Labwork obtained to evaluate for leukocytosis, anemia, and electrolyte derangement. EKG obtained to evaluate for cardiac arrhythmia/ischemia. Chest x-ray obtained to evaluate for acute lung pathology, cardiac size, or mediastinal abnormality. History & Record Review Discussion w/independent historian: Patient and Significant other Additional record(s) reviewed:: Prior labs Lab Data Attestation: I reviewed the patient's lab results. Labs: Laboratory Results - last 24 hr 01/19/24 22:48 WBC 7.2 RBC 4.77 Hgb 14.2 Hct 41.5 MCV 87.0 MCH 29.8 MCHC 34.2 RDW Std Deviation 41.5 RDW Coeff of Ghulam 13.2 Plt Count 281 MPV 8.7 Immature Gran % (Auto) 0.100 Neut % (Auto) 47.5 Lymph % (Auto) 39.0 Scott % (Auto) 6.4 Eos % (Auto) 5.1 H Baso % (Auto) 1.9 H Absolute Neuts (auto) 3.4 Absolute Lymphs (auto) 2.82 Nucleated RBC % 0 Sodium 142 Potassium 3.6 Chloride 111 H Carbon Dioxide 21.0 Anion Gap 10 BUN 21 H Creatinine 1.69 H Estim Creat Clear Calc 59.18 Est GFR (MDRD) Af Amer 53 L Est GFR (MDRD) Non-Af 44 L BUN/Creatinine Ratio 12.4 Glucose 199 H Calcium 8.7 Troponin I High Sens 13 TSH 1.50 Radiography Chest X-Ray - ED: 1 View, Read by ED Physician and Chronic Changes Diagnostic Testing: Clinical Impression(s) from Imaging Studies Chest X-Ray 01/19/24 22:40 IMPRESSION: No radiographic evidence of acute cardiopulmonary disease. Electronically Signed: Jose Dasilva DO at 23:05 EDT , EKG Initial EKG: Attestation: I personally reviewed and interpreted this EKG as follows: Interpretation: Atrial Fibrillation (Atrial fibrillation with ventricular rate of 99 bpm. Incomplete right bundle branch block. No acute ischemia.) Follow-up EKG: Attestation: I personally reviewed and interpreted this EKG as follows: Interpretation: Sinus Rhythm (Sinus rhythm at 73 bpm with no acute ST change.) Treatment and Re-Evaluation :: CBC reveals white count of 7.2 with hemoglobin of 14.2. Differential unremarkable. Chemistry studies reveal a BUN of 21 and a creatinine 1.69 which is improved when compared to our prior values. Glucose is 199. Troponin is normal at 13 and TSH is 1.50. Portable chest x-ray per my interpretation reveals chronic changes with no focal infiltrate. Radiology interpretation reviewed and agrees. EKG is atrial fibrillation with ventricular rate of 99 bpm. On repeat evaluation patient has converted to a sinus rhythm in the 70s. Will obtain a repeat EKG for documentation. As the patient is seeing his sap bw bi developer within the next 2 days, I will make a copy of his results tonight for him to take with him to his appointment in [place]. Patient be discharged home. Return instructions given. Discharge Plan Triage Chief Complaint: Palpitations ED Provider: Anuradha Loomis Dx/Rx/DC Orders Clinical Impression: Paroxysmal A-fib Instructions: ED AFIB Prescriptions: No Action diltiazem HCl [Cardizem CD] 120 mg capsule,extended release 24hr 120 mg PO DAILY Qty: 30 0RF colchicine 0.6 mg tablet 0.6 mg PO DAILY Jardiance 25 mg tablet 25 mg PO DAILY pantoprazole 40 mg tablet,delayed release (DR/EC) 40 mg PO DAILY multivitamin Tablet 1 tab PO DAILY aspirin [Adult Aspirin Regimen] 81 mg tablet,delayed release (DR/EC) 81 mg PO DAILY pravastatin 40 mg tablet 80 mg PO QHS omega 4-vdy-jvj-fish oil [Fish Oil] 300-1,000 mg capsule 2 cap PO BID Eliquis 5 mg tablet 5 mg PO BID Qty: 60 0RF Primary Care Provider: Nuris Hoffman NP Referrals: Nuris Hoffman NP, PRODUCTION MACHINIST-C [Primary Care Provider] - Activity Restrictions/Additional Instructions: Follow-up with your sap bw bi developer on as scheduled. Print Language: [place] Disposition Disposition: Home, Self Care
--- NOTE | 2024-01-19 22:40 | RAD_ITS ---
EXAM: XR CHEST, 1 VIEW CLINICAL INDICATION: palpitations TECHNIQUE: Frontal view of the chest. COMPARISON: 12/09/2023 FINDINGS: LUNGS AND PLEURAL SPACES: No significant abnormality. No consolidation or edema. No pneumothorax. No effusion. HEART: No significant abnormality. Cardiac silhouette not enlarged. MEDIASTINUM: Central airways and mediastinal contour are unremarkable. BONES/JOINTS: No significant abnormality. No acute fracture. SOFT TISSUES: No significant abnormality. RAD/Chest 1 View (Portable) IMPRESSION: No radiographic evidence of acute cardiopulmonary disease. Electronically Signed: Jose Dasilva DO at 23:05 EDT ,
[2024-01-19 22:56] VITALS: PULSE 92; RESP 21; O2SAT 95
[2024-01-19 23:00] VITALS: BP 119/78; PULSE 104; RESP 24; O2SAT 95
[2024-01-19 23:01] LABS: Absolute Lymphocyte Count 2.82 X10^3/uL (0.83-4.51); Absolute Neutrophil Count 3.4 X10^3/uL (2.0-7.7); Basophil# 0.14 X10^3/uL; Basophil% 1.9 % (0-1); Eosinophil# 0.37 X10^3/uL; Eosinophils% 5.1 % (0-5); Hematocrit 41.5 % (40-54); Hemoglobin 14.2 g/dL (13.0-16.5); Lymphocyte # 2.82 X10^3/ul (0.83-4.51); Mean Corp Hgb Conc 34.2 g/dL (32-36); Mean Corpuscular Hgb 29.8 pg (27.0-32.0); Mean Platelet Vol. 8.7 fl (6.2-12.0); Monocyte# 0.46 X10^3/uL; Monocyte% 6.4 % (0-10); NRBC Flagged by Analyzer 0 % (0-5); Neutrophil # 3.44 X10^3/uL (2.7-7.7); Neutrophil % 47.5 % (47-70); Platelet Count 281 K/mm3 (150-450); RBC Distribution Width CV 13.2 % (11.6-14.6); RBC Distribution Width SD 41.5 fl (35.1-43.9); Red Blood Count 4.77 M/mm3 (4.6-6.2); White Blood Count 7.2 K/mm3 (4.4-11.0)
[2024-01-19 23:15] VITALS: PULSE 93; RESP 21; O2SAT 95
[2024-01-19] MEDS: 0.9% Normal Saline (1000mL) 1,000 ML 150 ML IV (23:20)
[2024-01-19 23:27] LABS: Anion Gap 10 (5-15); BUN 21 mg/dL (7-18); BUN/Creat Ratio 12.4 RATIO (10-20); Calcium,Total 8.7 mg/dL (8.5-10.1); Chloride 111 mmol/L (98-107); Creatinine, Serum 1.69 mg/dL (0.70-1.30); EST Glomerular Filtration Rate 44 mL/min (>60); Est Glom Filt Rate - Afr Amer 53 mL/min (>60); Estimated Creatinine Clearance 59.18 ml/min; Glucose 199 mg/dL (74-106); Potassium 3.6 mmol/L (3.5-5.1); Sodium Level 142 mmol/L (136-145); Troponin-I HS 13 pg/mL (3.0-78.0)
[2024-01-19 23:30] VITALS: BP 122/80; PULSE 74; RESP 30; O2SAT 95
[2024-01-19 23:44] VITALS: BP 122/80; PULSE 72; RESP 16; TEMP 36.9; O2SAT 96
--- NOTE | 2024-01-19 23:45 | EKG12_ITS ---
Test Reason : RHYTHM CONVERSION Blood Pressure : / mmHG Vent. Rate : 073 BPM Atrial Rate : 073 BPM P-R Int : 166 ms QRS Dur : 090 ms QT Int : 390 ms P-R-T Axes : 030 025 121 degrees QTc Int : 429 ms Normal sinus rhythm T wave abnormality, consider lateral ischemia Abnormal ECG Confirmed by ALONDRA CALDWELL, MAYO ([id number]), brands editor MARISSA ALEXANDER ([id number]) on 01/20/2024 8:58:41 AM Referred By: Confirmed By:MAYO CANTU MD
== END 2024-01-20 | disposition home or self-care (01) ==
PROVIDERS: Emergency Provider Emergency Medicine; PCP Registered Nurse; Visit Provider Emergency Medicine
DX: I48.0 Paroxysmal atrial fibrillation (principal); E11.9 Type 2 diabetes mellitus without complications; I10 Essential (primary) hypertension; E78.5 Hyperlipidemia, unspecified; I25.10 Atherosclerotic heart disease of native coronary artery without angina pectoris; Z79.01 Long term (current) use of anticoagulants; Z79.82 Long term (current) use of aspirin; Z79.84 Long term (current) use of oral hypoglycemic drugs; Z79.899 Other long term (current) drug therapy
CPT/HCPCS: 71045; 80048; 84443; 84484; 85025; 93005; 99284; J7030; A4216

== ENCOUNTER → 2024-02-04 | Outpatient (CLI) | payer OTHER, SELFPAY ==
--- NOTE | 2024-02-04 09:02 | CR.HP_ITS ---
CR - History & Physical General Arrival date:: 02/04/24 Arrival time:: 09:03 Date of Referral:: 01/26/24 Referring Physician: Dr. Cory Patel Primary Diagnosis: S/P CABG History of Present Cardiac Event Onset Date Coronary Artery Bypass Graft:: Yes Vessel: HUMPHREY-LAD Maddy-Ramus 12/23/2023 onset Medications Ambulatory Orders ?Medication ?Instructions ?Recorded apixaban 5 mg tablet (Eliquis) 5 mg PO BID #60 tabs 12/04/23 omega 2-lsk-ovt-fish oil 300 2 cap PO BID 12/04/23 mg-1,000 mg capsule (Fish Oil) pravastatin 40 mg tablet 80 mg PO QHS 12/04/23 diltiazem HCl 120 mg 120 mg PO DAILY #30 caps 12/09/23 capsule,extended release 24 hr (Cardizem CD) aspirin 81 mg tablet,delayed 81 mg PO DAILY 01/19/24 release (Adult Aspirin Regimen) colchicine 0.6 mg tablet 0.6 mg PO DAILY 01/19/24 empagliflozin 25 mg tablet 25 mg PO DAILY 01/19/24 (Jardiance) multivitamin 1 tab PO DAILY 01/19/24 pantoprazole 40 mg tablet,delayed 40 mg PO DAILY 01/19/24 release Allergies Allergies No Known Allergies Allergy (Verified 01/19/24 21:37) Sleep Disorder Evaluation Hx of Sleep Apnea: No Do you snore loudly (louder than talking or can be heard through closed doors)?: No Do you often feel tired/ fatigued/ sleepy during daytime?: No Has anyone observed you stop breathing during sleep?: No History of Hypertension (for STOP score): Yes STOP Results: Negative Advanced Directives Advanced Directives 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 Living Will: No Advance Directives Information Provided: No Advance Directives on File: No DNR Order?:: No Past Medical History Covid-19 Screening Physicial Symptoms Other Clinical Concerns Exposure Risk Pertinent Comorbidities Has a serious heart condition:: Yes Diabetic:: Yes Has chronic kidney disease undergoing dialysis:: Yes Past Medical Illness Past Medical History (Updated 01/28/24 @ 00:01 by Background Daemon) Kidney disease N28.9 Irregular heart beat I49.9 Coronary artery disease I25.10 Hyperlipidemia E78.5 Diabetes mellitus E11.9 Hypertension I10 Atrial fibrillation I48.91 Laceration Past Surgical History Past Surgical History (Updated 01/19/24 @ 23:04 by Lynda Holman) S/P hernia repair Z98.890, Z87.19 Hx of CABG Z95.1 Social History Smoking History Smoking Status: Never smoker Alcohol Use Alcohol Usage: No Substance Abuse Hx Substance Use: No Occupation Occupation (List type of work in comments):: Employed Hours worked per day:: 7 Hobbies, Recreation, Social Activities Hobbies: Other (work) Recreational Activities: I am able to engage in all my recreational activities Social Environment Status Marital Status: Current Living Arrangements Living Environment:: Spouse Children How many children do you have?: 2 Do any of your children live nearby?: Yes Safety Do you feel safe in your surroundings?: Yes Assistance Do you need any assistance at home?: no Review of Systems Review of Systems Hints Review of Present Symptoms: Reports Appetite - Normal, Appetite - Special Diet and Sleep - Normal; Denies Shortness of Breath at Rest, Shortness of Breath with Exertion, PVD, Operative Discomfort, Angina, Wound Healing, Dizziness/Lightheadedness, Fatigue, Heart Arrhythmia/Irregularities or Sexual Changes Pain Is Patient Pain Free?: Yes Risk Factor Assessment Chief Complaint Chief Complaint: S/P CABG Vital Signs Pulse Ox: 95 Blood Pressure: 130/80 Pulse Pulse Rate: 72 Pulse Rhythm: Regular Hypertension How long have you been treated?: 4 years Blood Pressure Sitting - Left Arm: 130/80 Stress Stress: Work-related and Home/Family Diabetes Diabetic History: Type II Nutrition Referral for Diabetes: No Obesity Height: 6 ft Weight:: 256 lb Weight in Pounds: 256.0 lbs Body Mass Index (BMI): 34.7 Physical Inactivity Physical Inactivity: Physically demanding job Risk Stratification Risk Guidelines: Moderate Risk: Risk Factor for Smoking, Risk Factor for Sedentary Lifestyle and Risk Factor for Depression and Highest Risk: Risk Factor for Dyslipidemia, Risk Factor for Diabetes, Risk Factor for Obesity and Risk Factor for Hypertension For Smoking Smoking Risk Guidelines For Dyslipidemia Dyslipidemia Risk Guidelines For Diabetes Mellitus Diabetes Risk Guidelines For Obesity/Overweight Obesity/Overweight Risk Guidelines For Hypertension Hypertension Risk Guidelines For Sedentary Lifestyle Sedentary Lifestyle Risk Guidelines For Depression Depression Risk Guidelines Motivation Motivation to Participate On a scale of 1 to 10, how prepared are you to commit to attending program?: 7 What do you see as barriers to successfully being able to complete the program?: nothing What do you see as the benefits of succesfully completing the program? In other words, what do you hope to get out of participating in the program?: more energy, stonger Are there issues you are dealing with that will interfere with completing the program?: no Do you have a spouse or signficant other, family or friends who will help support you to complete the program?: yes
--- NOTE | 2024-02-04 09:08 | PCM.CR.ITP ---
Diagnosis General Information Admitting Diagnosis: S/P CABG Personal Learning Style:: Audio/Visual Stage of change r/t lifestyle modifications:: Contemplation Gave educational material for:: Treating Heart Disease, How The Heart Works, What it means to have Heart Disease, How Coronary Artery Disease is Diagnosed, Heart Procedures, What Heart Medications Do, Risk Factors & Modifications, Living an Active Life, Nutrition, Emotions & Heart Disease, Stress Management & Relaxation and Sleep Disorders & Heart Disease Education/Goals Cardiac Rehabilitation Goals Personal Goals: Initial Assessment: Improve energy level, Improve knowledge of cardiac disease, Improve muscle strength and endurance and Improve diet and eating habits (eat healthier) Scale for measuring improvement of personal goals Diagnosis & Disease Process Outcomes/Goals: Pt IDs own risk factors & lifestyle modifications by Session 10, Verbalizes symptoms of angina & response by session 3., Pt independently manages and Other Additional Outcomes/Goals: Plan/Interventions: Assist Pt to ID & engage in lifestyle modification to reduce CVD risk, Instruct on individual risk factors, Review symptoms of angina & emergency actions, Review secondary diagnosis & identify educational needs. and Other see comment 30 day Reassessments:: Not Met 30 day Reassessments:: Not Met 30 day Reassessments:: Not Met 30 day Reassessments:: Not Met Final Reassessments:: Not Met Safety Referral to Physical Therapy: No Referral to [facility] Case Management: No Fall Risk Assessed:: Yes Assistive Devices:: None Exercise - Initial Assessment Visit Date of Eval: 02/04/24 (initial eval ) Mets: Pre-: >3 METS for 30 minutes by discharge, >5 METS for 30 minutes by discharge, >7 METS for 30 minutes by discharge and Unable to meet goal due to: (see comment below) Physician Prescribed Exercise Modalities: Treadmill, Schwinn Airdyne AD-7, SciFit Stepper, SciFit Pro-II Ergometer and SciFit Lateral Human Factors Advisor Lead Frequency: 3x/week for 12 weeks [36 sessions] Intensity: 60-80% of age predicted maximum heart rate reserve Duration: 30 - 45 minutes Current METSs:: 3 Target Heart Rate:: 94-118 Resting Blood Pressure: 130/80 EKG Type: NSR Outcomes & Goals Goals:: Verbalizes understanding of THR, RPE & goal METS by session 6, Documents in home exercise log/reports 30 min aerobic 5 day/wk by DC, Demonstrates accurate pulse taking by DC and Other additional outcome/goals: see below Intervention & Plan Exercise Program Goals: Instruct on personal THR & RPE, Instruct on MET level & personal MET goal, Show patient to take own pulse /validate performance until accurate, Instruct on home exercise and Other additional plan/int Physical Activity Home Exercise Physical Activity - Home Exercise: Safe Exercise, Warm-up, Self-monitoring, Cool-Down, Home Exercise > 30 min Daily and Sitting Time <3 hours/daily Outcomes & Goals Outcomes/Goals: Demonstrates correct Warm-up/exercise Cool-Down (S3) if = 2.5 METs, Verbalizes symptoms of exercise intolerance by Session 3 (S3), Demonstrate safe equipment use (S3) & follows exercise prescrition (6) and Other: See below Intervention & Plan Plan/Intervention: Instruct warm-up & cool-down if exercising at > 2 METs, Instruct on symptoms of exercise intolerance & actions to take, Instruct & monitor on saf, Assess intial functional capacity & safety risk and Other See below Nutrition - Initial Assessment Program Goals Nutrition Program Goals Patient has diagnosis of Hyperlipidemia (ICD E78)?: Yes Visit Date of Eval: 02/04/24 (initial eval ) Cholesterol/Lipids (Other Core Measures) Determine presence & major risk factors that modify LDL goal: Hypertension or hypertensive medication, Low HDL cholesterol <40 mg/dL*, Family history of premature CHD in Male < 55 years: female <65 yearsFa and Age men > 45 years; women >/= 55 years Outcomes/Goals: Pt IDs own risk factors & lifestyle modifications by Session 10, Verbalizes symptoms of angina & response by session 3., Pt independently manages and Other Additional Outcomes/Goals: Intervention/Plan: Advocate for lipid panel cholesterol medication if applicable, Instruct on personal lipid levels & lipid goals/NCEP guidelines, Instruct on cholesterol and Other additional plan/int Referral to dietitian:: No (pt declines. He is speaking with a medical sales associate from another facility.) Diabetes (Other Core Measures) Diabetes Type: Diagnosis Type II ICD-10 E11 Insulin dependent injection/pump?: No Non-Insulin Dependent?: Yes Do you monitor your blood sugar at home?: Yes Referral to Diabetic Clinic:: No (declines) Outcomes/Goals:: Able to state symptoms of, Able to state, Able to state and Other additional Intervention/Plan:: Instruct on, Refer to, Instruct on and Other Weight Mgt (Other Care) Height: 6 ft Weight:: 256 lb BMI: 34.7 Diagnosis Overweight/Obesity BMI> 30% ICD-10 E66: Yes Diagnosis High BMI/Morbid Obesity BMI> 35% ICD-10 Z68: No Outcomes/Goals: Pt sets, maintains & shows weight loss goal & trend during rehab and Other additional outcomes/goals Intervention/Plan: Instruct on ideal BMI & set weight loss goal w/patient, Assist pt to ID & incorporate diet changes for weight loss by S9, Refer to Structured Weight Loss program as appropriate, Encourage goal of using 250-300dcal per session for weight loss and Other additional plan/interventions Healthy Eating Habits Will attend diet classes:: Yes Outcomes/Goals:: Consume diet rich in vegs,fruits,whole grain/high fiber,fish,lean meat, Limit sat/trans fats,cholesterol & added salts & sugars and Other additional outcome/goals: Intervention/Plan:: Assess current eating habits and Other Additional plan/interventions Education Gave educational materials for:: Signs & symptoms of hypoglycemia, Signs & symptoms of hyperglycemia, Relate diabetes to coronary artery disease and Healthy eating Core - Initial Assessment Visit Date of Eval: 02/04/24 (initial eval ) Medication Compliance Preventative Medication(s):: Aspirin, Statin/lipid, Beta christina and Eliquis H/O mental health issues: depression, anxiety, or addiction?: No Doesn?t believe in the benefits of treatment?: No Believes medications are unnecessary or harmful?: No Has a concern about medication side effects?: No Expresses concern over the cost of medications?: No Outcomes/Goals: Verbalizes medications,desired effect & common side effects @ DC, Pt self-reports following medication regimen, Keeps card in wallet w/medications listed by DC and Other additional outcome/goals: Interventions/plans: Instruct on medication effects & side effects, Review medication list w/patient every two weeks, Instruct importance of taking meds as ordered & assist problem solving and Other additional Tobacco Use Tobacco Use: Non-smoker Hypertension Hypertension Diagnosis:: Hypertension ICD-10 I10 Resting Blood Pressure:: 130/80 [place] [employer] Hypertension Guidelines Outcomes/Goals: Able to verbalize/achieve optimal blood pressure <130/80, Incorporates diet changes & exercise for blood pressure control by DC and Other additional outcomes/goals Interventions/plan: Instruct on optimal blood pressure, hypertension & medications, Instruct on effects of sodium, alcohol, stress, exercise &hypertension and Other additional plan/interventions Tobacco Cessation Referral Smoking Cessation Referral:: No Individual Education/Counseling:: No Education Schedule Given:: Yes Psychosocial - Initial Assess VIsit Date of Eval: 02/04/24 (initial eval ) History of previous Mental disease:: No Target Goals Target Goals Outcomes/Goals: See list Psychosocial Outcomes/Goals:: ID's personal stressors & 2 strategies to manage stress by discharge and Other Additional outcome/goals: Intervention/Plan: See List Interventions/Plan:: Assess stressors,coping strategies & signs of derpression on admission, Instruct/assist pt to develop coping & personal stress Mgt strategies, Refer to Behavioral Health if appropriate, Refer to Physician if appropriate, Instruct patient to recognize signs & symptoms of depression, Instruct patient to recog and Other additional plan/intervention Patient Health Questionnaire PHQ-9 Screening Initial Assessment: 1. Little interest or pleasure in doing things: Not at all 2. Feeling down, depressed, or hopeless: Not at all 3. Trouble falling or staying asleep, or sleeping too much: More than half the days 4. Feeling tired or having little energy: Not at all 5. Poor appetite or overeating: Not at all 6. Feeling bad about yourself -- or that you are a failure or have let yourself or your family down: Not at all 7. Trouble concentrating on things, such as reading the newspaper or watching television: Not at all 8. Moving or speaking so slowly that other people could have noticed. Or the opposite - being so fidgety or restless that you have been moving around a lot more than usual: Not at all 9. Thoughts that you would be better off , or of hurting yourself in some way: Not at all How difficult have these problems made it for you to do your work, take care of things at home, or get along with other people?: Not difficult at all Total Score: 2 JAIRO-Q SV Test Statements CAD is a disease of the arteries in the heart: False Examples of risk factors for heart disease: True Angina is chest pain or discomfort: I Don't Know The benefits of resistance training include: True Eating more meat and dairy products: False Anti-platelet medications such as aspirin are important: True The only effective way to manage stress: False An exercise warm-up slowly increases heart rate: True Prepared, processed foods usually have high sodium: True Depression is common after a heart attack: True The statin medications lower cholesterol: I Don't Know To control blood pressure, lower the amount of sodium: True If someone gets chest discomfort during walking: False Transfats are partially hydrogenated vegetable oils: True Sleep apnea that is not treated increases the risk: False To control cholesterol, one should become a vegetarian: False Someone knows if he/she is exercising at the right level: True Diabetes cannot be prevented with exercise & health eating: True Stress is a large risk for heart attack: True A diet that can help lower blood pressure is rich in: True Total Score Total Correct Responses: 17 Self-Efficacy 6-Item Scale Initial Assessment: We would like to know how confident you are in doing certain activities. Please select your confidence level for: Fatigue Select Number: 8 Physical Discomfort or Pain Select Number: 10 Emotional Distress Select Number: 10 Other Symptoms or Health Problems Select Number: 7 Different Tasks and Activities Select Number: 9 Medication Select Number: 10 Total Score:: 9 Nutrition Survey Nutrition Survey Instructions Scoring Instructions Nutrition Survey Initial: Have you lost >10 lbs over the past 2 months without trying?: Yes Are you following a special diet at home for diabetes, low fat, or low salt?: Yes Are you interested in meeting with a dietitian for help understanding your diet?: No Do you eat less than 3 meals a day?: Yes Do you eat fatty meats (wheeler, sausage, ribs, etc), fried foods, desserts, large amounts of salad dressings, margarine, butter, or cheese most days?: No Do you have food allergies? [Enter types in comment field]: No Do you eat in restaurants more than 3 times a week?: Yes Do you season food with salt, seasoning salt, or garlic salt?: No Do you used canned, boxed, frozen meals, or soups, seasoning packets?: No Total Score:: 4 Exercise - 30-day Assessment Physician Prescribed Exercise Modalities: Treadmill, Linda Evans AD-7, SciFit Stepper, SciFit Pro-II Ergometer and SciFit Lateral [place] Exercise - 60-day Assessment Physician Prescribed Exercise Modalities: Treadmill, Linda Evans AD-7, SciFit Stepper, SciFit Pro-II Ergometer and SciFit Lateral [place] Exercise - 90-day Assessment Physician Prescribed Exercise Modalities: Treadmill, Schwinn Airdyne AD-7, SciFit Stepper, SciFit Pro-II Ergometer and SciFit Lateral Human Factors Advisor Lead Exercise - Final/Discharge Physician Prescribed Exercise Modalities: Treadmill, Schwinn Airdyne AD-7, SciFit Stepper, SciFit Pro-II Ergometer and SciFit Lateral Human Factors Advisor Lead Frequency: 3x/week for 12 weeks [36 sessions] Intensity: 60-80% of age predicted maximum heart rate reserve Current METSs:: 3 Target Heart Rate:: 94-118 Nutrition - 30-Day Assessment Weight Mgt (Other Care) Height: 6 ft Weight:: 256 lb BMI: 34.7 Nutrition - 60-Day Assessment Weight Mgt (Other Care) Height: 6 ft Weight:: 256 lb BMI: 34.7 Core - Final Assessment Hypertension Resting Blood Pressure:: 130/80 [place] [employer] Hypertension Guidelines Core - 60-Day Assessment Hypertension Resting Blood Pressure:: 130/80 [place] [employer] Hypertension Guidelines Psychosocial - 30-Day Assess Target Goals Target Goals Psychosocial - 60-Day Assess Target Goals Target Goals Psychosocial - 90-Day Assess Target Goals Target Goals Psychosocial - Final Assessmen Target Goals Target Goals Nutrition - 90-Day Assessment Weight Mgt (Other Care) Height: 6 ft Weight:: 256 lb BMI: 34.7 Nutrition - Final Assessment Program Goals Patient has diagnosis of Hyperlipidemia (ICD E78)?: Yes Weight Mgt (Other Care) Height: 6 ft Weight:: 256 lb BMI: 34.7
[2024-02-04 09:18] VITALS: PULSE 72; O2SAT 95
[2024-02-04 09:21] VITALS: BP 130/80
[2024-02-04 09:55] VITALS: BP 130/80; BMI 34.7
[2024-02-04 10:01] VITALS: BP 130/80
[2024-02-04 10:02] VITALS: BMI 34.7
== END | disposition home or self-care (01) ==
PROVIDERS: PCP Registered Nurse
DX: Z95.1 Presence of aortocoronary bypass graft (principal)

== ENCOUNTER 2024-02-26 15:15 | Outpatient (RCR) | payer OTHER, SELFPAY ==
[2024-02-04 09:55] VITALS: BMI 34.7
== END 2024-02-27 23:59 ==
LOC: CR 15:15
PROVIDERS: PCP Registered Nurse
DX: Z03.89 Encounter for observation for other suspected diseases and conditions ruled out (principal); Z95.1 Presence of aortocoronary bypass graft
CPT/HCPCS: 93798

== ENCOUNTER 2024-03-06 19:53 | Observation (INO) | payer OTHER, SELFPAY ==
[2024-03-04 08:39] VITALS: BMI 34.0
[2024-03-06 19:55] VITALS: BP 170/100; PULSE 72; RESP 15; TEMP 36.7; O2SAT 95; BMI 34.5
--- NOTE | 2024-03-06 20:02 | EKG12_ITS ---
Test Reason : DYSRHYTHMIA Blood Pressure : / mmHG Vent. Rate : 061 BPM Atrial Rate : 061 BPM P-R Int : 174 ms QRS Dur : 100 ms QT Int : 420 ms P-R-T Axes : 040 007 110 degrees QTc Int : 422 ms Sinus rhythm with occasional Premature ventricular complexes Nonspecific T wave abnormality Abnormal ECG Confirmed by ALONDRA CALDWELL, MAYO ([id number]), assistant editor MARISSA ALEXANDER ([id number]) on 03/07/2024 2:46:18 PM Referred By: Confirmed By:MAYO CANTU MD
--- NOTE | 2024-03-06 20:02 | CT_ITS ---
EXAM: CT HEAD WITHOUT INTRAVENOUS CONTRAST CLINICAL INDICATION: right leg weakness- resolved , TIA TECHNIQUE: Multiple axial images were obtained of the head without intravenous contrast. This CT exam was performed using one or more of the following dose reduction techniques: automated exposure control, adjustment of the mA and/or kV according to patient size, and/or use of iterative reconstruction technique. RADIATION DOSE: CTDIvol = 44.99 mGy, DLP = 846.73 mGy-cm COMPARISON: No relevant prior studies available. FINDINGS: BRAIN AND EXTRA-AXIAL SPACES: Unremarkable. No intra- or extra-axial hemorrhage. No evidence of acute infarct. No intracranial mass or mass effect. There is preservation of the salazar/white matter interface. Posterior fossa structures are unremarkable. Ventricles are appropriate for age. No hydrocephalus. Basal cisterns are patent. BONES/JOINTS: Unremarkable. No discrete lytic or blastic abnormalities. SINUSES: Sinus disease. MASTOID AIR CELLS: Unremarkable. Clear. ORBITS: Visualized globes, extraocular muscles, optic nerves and retrobulbar fat appear unremarkable. CT/Brain/Head without Contrast IMPRESSION: No acute findings in the head/brain. Electronically Signed: Lincoln Keane MD at 20:43 EDT ,
--- NOTE | 2024-03-06 20:03 | EDS_ITS ---
HPI History of Present Illness Chief Complaint: Numb/Ting Informant: patient Narrative Narrative: Patient is a 63-year-old male with history of atrial fibrillation (on amiodarone?, diltiazem and Eliquis) presenting with right leg weakness. Patient was working at the [employer] when he started feel weak and off in his right leg. He was stumbling. He also notes that his right face did not feel the same and maybe was asymmetric. Denies any vision changes. Denies associated back pain or chest pain. Denies associated numbness. Denies any weakness of the hands. Bystanders wanted to call 911 but patient declined and came to the ER via private vehicle. Patient notes that before his CABG he would have some numbness to his right leg from time to time but nothing like this. He never had it worked up and it just went away. No other complaints or concerns at this time.Was in his normal state of health prior to this. Denies any recent alcohol use. [facility] Medical History Kidney disease Irregular heart beat Coronary artery disease Hyperlipidemia Diabetes mellitus Hypertension Atrial fibrillation Laceration Home Medications ?Medication ?Instructions ?Recorded ?Last Taken ?Type apixaban 5 mg tablet (Eliquis) 5 mg PO BID #60 tabs 12/04/23 Unknown Rx omega 7-wfg-gkv-fish oil 300 2 cap PO BID 12/04/23 Unknown History mg-1,000 mg capsule (Fish Oil) pravastatin 40 mg tablet 80 mg PO QHS 12/04/23 Unknown History diltiazem HCl 120 mg 120 mg PO DAILY #30 caps 12/09/23 Unknown Rx capsule,extended release 24 hr (Cardizem CD) aspirin 81 mg tablet,delayed 81 mg PO DAILY 01/19/24 Unknown History release (Adult Aspirin Regimen) colchicine 0.6 mg tablet 0.6 mg PO DAILY 01/19/24 Unknown History empagliflozin 25 mg tablet 25 mg PO DAILY 01/19/24 Unknown History (Jardiance) multivitamin 1 tab PO DAILY 01/19/24 Unknown History pantoprazole 40 mg tablet,delayed 40 mg PO DAILY 01/19/24 Unknown History release Allergy/AdvReac Type Severity Reaction Status Date / Time No Known Allergies Allergy Verified 03/06/24 19:58 Surgical History S/P hernia repair Hx of CABG Social History household members: spouse housing: house Smoking Status: Never smoker ROS ROS ED Constitutional Constitutional ED: Denies chills or fever(s) Cardiovascular Cardiovascular: Denies chest pain Respiratory/Chest Respiratory/Chest: Denies cough or dyspnea Gastrointestinal Gastrointestinal: Denies nausea or vomiting Musculoskeletal Musculoskeletal: Denies arthralgias, back pain or myalgias Integumentary Denies rash Neurologic Neurologic: Reports weakness; Denies headache(s) or paresthesias Hematologic/Lymphatic Hematologic/Lymphatic: Reports easy bleeding and easy bruising EXAM Physical Exam Const Vital Signs: 03/06/24 19:55 Temperature 98.1 F Temperature Source Temporal Pulse Rate 72 Respiratory Rate 15 Blood Pressure 170/100 H Blood Pressure Mean 123 Pulse Ox 95 Oxygen Delivery Method Room Air Positive well nourished and well developed General Appearance ED: well developed and NAD HEENT Reports moist mucous membranes Eyes PERRL Neck supple and no JVD Chest Wall inspection of chest normal and palpation of chest normal Resp normal respiratory effort and clear to auscultation bilaterally Cardio no murmurs Rate: regular rate Rhythm: regular rhythm GI normal to inspection, nondistended, normoactive bowel sounds and soft to palpation Back/Spine Thoracic Spine / Upper Back: Negative for thoracic spinal tenderness Lumbar Spine / Lower Back: Negative for lumbar spinal tenderness Extremity normal to inspection Extremity Narrative: Walks with a steady gait. General Extremety ED: Negative for deformity or edema General Extremity: Negative for deformity or edema Neuro oriented x3, CN's II-XII intact bilaterally and no sensory deficits noted Neuro Narrative: NIH=0 Sensorium / Orientation: alert Motor Exam: strength 5/5 throughout; Negative for general weakness Psych mental status grossly normal Skin no wounds NIHSS NIHSS Initial: 1a Level of Consciousness: 0 1b LOC Questions (Score 2 if aphasic/stupor): 0 1c LOC Commands (Only score 1st attempt): 0 3 Visual: 0 4 Facial Palsy: 0 5 Motor Arm Right (UN = amputation/fusion): 0 5 Motor Arm Left: 0 6 Motor Leg Right: 0 6 Motor Leg Left: 0 7 Limb ataxia (Only + if out of proportion): 0 8 Sensory (Aphasia/stupor=0 or 1, coma=2): 0 9 Best Language: 0 10 Dysarthria (mute, coma=2, intubated=UN): 0 11 Extinction and Inattention (only scored if +): 0 Total Score: 0 MDM MDM MDM Narrative Medical decision making narrative: Patient evaluated for an episode of what sounds like right facial droop and right leg weakness. Upon arrival to the ER patient does not have any neurologic deficits and his NIH is 0. I do not think he requires a stroke alert given that his symptoms have resolved. Will obtain a CT of the brain and further workup looking for cause of his symptoms or potential TIA. Discharge Plan Triage Chief Complaint: Numb/Ting ED Provider: Tuyet Shah Dx/Rx/DC Orders Prescriptions: No Action diltiazem HCl [Cardizem CD] 120 mg capsule,extended release 24hr 120 mg PO DAILY Qty: 30 0RF colchicine 0.6 mg tablet 0.6 mg PO DAILY Jardiance 25 mg tablet 25 mg PO DAILY pantoprazole 40 mg tablet,delayed release (DR/EC) 40 mg PO DAILY multivitamin Tablet 1 tab PO DAILY aspirin [Adult Aspirin Regimen] 81 mg tablet,delayed release (DR/EC) 81 mg PO DAILY pravastatin 40 mg tablet 80 mg PO QHS omega 9-ssc-[id number]-fish oil [Fish Oil] 300-1,000 mg capsule 2 cap PO BID Eliquis 5 mg tablet 5 mg PO BID Qty: 60 0RF Primary Care Provider: Nuris Hoffman NP Referrals: Nuris Hoffman NP, [facility] [Primary Care Provider] - Print Language: Upper Sorbian
--- NOTE | 2024-03-06 20:03 | ED.VIS.STROK ---
HPI History of Present Illness Chief Complaint: Numb/Ting Informant: patient Narrative Narrative: Patient is a 63-year-old male with history of atrial fibrillation (on amiodarone?, diltiazem and Eliquis) presenting with right leg weakness. Patient was working at the [employer] when he started feel weak and off in his right leg. He was stumbling. He also notes that his right face did not feel the same and maybe was asymmetric. Denies any vision changes. Denies associated back pain or chest pain. Denies associated numbness. Denies any weakness of the hands. Bystanders wanted to call 911 but patient declined and came to the ER via private vehicle. Patient notes that before his CABG he would have some numbness to his right leg from time to time but nothing like this. He never had it worked up and it just went away. No other complaints or concerns at this time.Was in his normal state of health prior to this. Denies any recent alcohol use. [facility] Medical History (Updated 03/06/24 @ 22:[address] Tuyet Shah DO) Gout Paroxysmal atrial fibrillation Obesity CKD (chronic kidney disease), stage III Coronary artery disease Hyperlipidemia Diabetes mellitus Hypertension Home Medications ?Medication ?Instructions ?Recorded ?Last Taken ?Type apixaban 5 mg tablet (Eliquis) 5 mg PO BID #60 tabs 12/04/23 Unknown Rx omega 3-cml-rbg-fish oil 300 2 cap PO BID 12/04/23 Unknown History mg-1,000 mg capsule (Fish Oil) aspirin 81 mg tablet,delayed 81 mg PO DAILY 01/19/24 Unknown History release (Adult Aspirin Regimen) empagliflozin 25 mg tablet 25 mg PO DAILY 01/19/24 Unknown History (Jardiance) multivitamin 1 tab PO DAILY 01/19/24 Unknown History pantoprazole 40 mg tablet,delayed 40 mg PO DAILY 01/19/24 Unknown History release amiodarone 200 mg tablet 200 mg PO BID 03/06/24 Unknown History atorvastatin 80 mg tablet 80 mg PO DAILY 03/06/24 Unknown History Allergy/AdvReac Type Severity Reaction Status Date / Time No Known Allergies Allergy Verified 03/06/24 19:58 Family History (Updated 03/06/24 @ 22:[address] Goldie Medina MD) Mother CVA (cerebral vascular accident) Hypertension HLD (hyperlipidemia) Father HLD (hyperlipidemia) Myocardial infarction Hypertension Heart disease CAD (coronary artery disease) Surgical History S/P hernia repair Hx of CABG Social History (Updated 03/06/24 @ 22:[address] Goldie Medina MD) household members: spouse housing: house Smoking Status: Never smoker alcohol intake: never substance use type: does not use ROS ROS ED Constitutional Constitutional ED: Denies chills or fever(s) Cardiovascular Cardiovascular: Denies chest pain Respiratory/Chest Respiratory/Chest: Denies cough or dyspnea Gastrointestinal Gastrointestinal: Denies nausea or vomiting Musculoskeletal Musculoskeletal: Denies arthralgias, back pain or myalgias Integumentary Denies rash Neurologic Neurologic: Reports weakness; Denies headache(s) or paresthesias Hematologic/Lymphatic Hematologic/Lymphatic: Reports easy bleeding and easy bruising EXAM Physical Exam Const Vital Signs: 03/06/24 19:55 03/06/24 20:55 03/06/24 21:00 Temperature 98.1 F Temperature Source Temporal Pulse Rate 72 61 60 Respiratory Rate 15 18 20 H Blood Pressure 170/100 H 156/88 H 145/89 H Blood Pressure Mean 123 110 107 Pulse Ox 95 96 93 Oxygen Delivery Method Room Air Room Air Room Air Positive well nourished and well developed General Appearance ED: well developed and NAD HEENT Reports moist mucous membranes Eyes PERRL Neck supple and no JVD Chest Wall inspection of chest normal and palpation of chest normal Resp normal respiratory effort and clear to auscultation bilaterally Cardio no murmurs Rate: regular rate Rhythm: regular rhythm GI normal to inspection, nondistended, normoactive bowel sounds and soft to palpation Back/Spine Thoracic Spine / Upper Back: Negative for thoracic spinal tenderness Lumbar Spine / Lower Back: Negative for lumbar spinal tenderness Extremity normal to inspection Extremity Narrative: Walks with a steady gait. General Extremety ED: Negative for deformity or edema General Extremity: Negative for deformity or edema Neuro oriented x3, CN's II-XII intact bilaterally and no sensory deficits noted Neuro Narrative: NIH=0 Sensorium / Orientation: alert Motor Exam: strength 5/5 throughout; Negative for general weakness Psych mental status grossly normal Skin no wounds NIHSS NIHSS Initial: 1a Level of Consciousness: 0 1b LOC Questions (Score 2 if aphasic/stupor): 0 1c LOC Commands (Only score 1st attempt): 0 3 Visual: 0 4 Facial Palsy: 0 5 Motor Arm Right (UN = amputation/fusion): 0 5 Motor Arm Left: 0 6 Motor Leg Right: 0 6 Motor Leg Left: 0 7 Limb ataxia (Only + if out of proportion): 0 8 Sensory (Aphasia/stupor=0 or 1, coma=2): 0 9 Best Language: 0 10 Dysarthria (mute, coma=2, intubated=UN): 0 11 Extinction and Inattention (only scored if +): 0 Total Score: 0 MDM MDM MDM Narrative Medical decision making narrative: Patient evaluated for an episode of what sounds like right facial droop and right leg weakness. Upon arrival to the ER patient does not have any neurologic deficits and his NIH is 0. I do not think he requires a stroke alert given that his symptoms have resolved. Will obtain a CT of the brain and further workup looking for cause of his symptoms or potential TIA. Patient has no progression of symptoms while in the emergency room or return of symptoms. Workup largely negative. CT of the brain does not show any process. X-ray of the chest reviewed by myself as well as radiology does not show acute process. Patient will be admitted for further neurologic evaluation in case this was a TIA and to make sure there is no signs of acute stroke on his MRI. Patient is agreeable this plan of care. Case discussed with physician, Dr. Medina. Lab Data Attestation: I reviewed the patient's lab results. Labs: Laboratory Results - last 24 hr 03/06/24 03/06/24 03/06/24 20:00 20:28 21:17 WBC 7.5 RBC 4.98 Hgb 14.7 Hct 44.5 MCV 89.4 MCH 29.5 MCHC 33.0 RDW Std Deviation 43.0 RDW Coeff of Ghulam 13.3 Plt Count 201 MPV 9.4 Immature Gran % (Auto) 0.400 Neut % (Auto) 46.9 L Lymph % (Auto) 38.7 [place] % (Auto) 7.7 Eos % (Auto) 4.7 Baso % (Auto) 1.6 H Absolute Neuts (auto) 3.5 Absolute Lymphs (auto) 2.90 Nucleated RBC % 0 Sodium 139 Potassium 3.9 Chloride 110 H Carbon Dioxide 24.0 Anion Gap 5 BUN 23 H Creatinine 1.87 H Estim Creat Clear Calc 53.09 Est GFR (MDRD) Af Amer 47 L Est GFR (MDRD) Non-Af 39 L BUN/Creatinine Ratio 12.3 Glucose 174 H Calcium 9.1 Total Bilirubin 0.50 AST 20 ALT 29 Alkaline Phosphatase 100 Troponin I High Sens 14 Total Protein 7.0 Albumin 3.7 Globulin 3.3 Albumin/Globulin Ratio 1.1 Urine Color Straw Urine Clarity Clear Urine pH 6.5 Ur Specific [place] 1.010 Urine Protein 15 H Urine Glucose (UA) 1000 H Urine Ketones Negative Urine Occult Blood Negative Urine Nitrite Negative Urine Bilirubin Negative Urine Urobilinogen Normal Ur Leukocyte Esterase Negative Urine RBC 0-5 SEEN Urine WBC 0-5 SEEN Ur Squamous Epith Cells 0-5 SEEN Urine Bacteria 0 SEEN Urine Mucus 0 SEEN Radiography Diagnostic Testing: Clinical Impression(s) from Imaging Studies Brain CT 03/06/24 20:02 IMPRESSION: No acute findings in the head/brain. Electronically Signed: Lincoln Keane MD at 20:43 EDT , Chest X-Ray 03/06/24 20:12 IMPRESSION: No radiographic evidence of acute cardiopulmonary disease. Electronically Signed: Lincoln Keane MD at 20:41 EDT , Rhythm Strip Rhythm Strip: Sinus Rhythm Rate: 61 Ectopy: None EKG Initial EKG: Attestation: I personally reviewed and interpreted this EKG as follows: Interpretation: Sinus Rhythm Comments: Normal sinus rhythm at a rate of 61 bpm with PVC present Normal axis Normal intervals Normal ST segments Discharge Plan Dx/Rx/DC Orders Clinical Impression: TIA (transient ischemic attack) Disposition Disposition: Acute Care Hospital [facility] Discharge Date/Time: 03/06/24 22:36
--- NOTE | 2024-03-06 20:12 | RAD_ITS ---
EXAM: XR CHEST, 1 VIEW CLINICAL INDICATION: neuro symptoms TECHNIQUE: Frontal view of the chest. COMPARISON: 01.19.24 FINDINGS: LUNGS AND PLEURAL SPACES: Unremarkable. No consolidation or edema. No pneumothorax. No effusion. HEART: Unremarkable. Cardiac silhouette not enlarged. MEDIASTINUM: Central airways and mediastinal contour are unremarkable. BONES/JOINTS: Unremarkable. No acute fracture. SOFT TISSUES: Unremarkable. RAD/Chest 1 View (Portable) IMPRESSION: No radiographic evidence of acute cardiopulmonary disease. Electronically Signed: Lincoln Keane MD at 20:41 EDT ,
[2024-03-06 20:43] LABS: Bacteria 0 SEEN /hpf (None Seen); Color, Urine Straw (Yellow); Glucose, Dipstick 1000 mg/dl (Normal); Ketone-Dipstick Negative (Negative); Leukocyte Esterase-Dipstick Negative /ul (Negative); Mucous, Urine 0 SEEN /hpf (<or=2+); Nitrite-Dipstick Negative (Negative); Occult Blood-Urine Negative /ul (Negative); Protein-Dipstick 15 mg/dl (Negative); Urine Bilirubin Dipstick Negative (Negative); Urine Clarity Clear (Clear); Urine Urobilinogen Normal (Normal); Urine pH 6.5 (5.0 - 8.0)
[2024-03-06 20:55] VITALS: BP 156/88; PULSE 61; RESP 18; O2SAT 96
[2024-03-06 21:00] VITALS: BP 145/89; PULSE 60; RESP 20; O2SAT 93
[2024-03-06 21:02] LABS: Squamous Epithelial Cells - UA 0-5 SEEN /hpf (0-5)
[2024-03-06 21:05] LABS: White Blood Cells 0-5 SEEN /hpf (0-5)
[2024-03-06 21:06] LABS: Red Blood Cells-Urine 0-5 SEEN /hpf (0-5)
[2024-03-06 21:06] LABS: ALB/GLOB Ratio 1.1 RATIO (0.9-2.4); AST(SGOT) 20 U/L (15-37); Alanine Aminotransfer ALT/SGPT 29 U/L (16-61); Albumin, Serum 3.7 g/dL (3.2-5.0); Alkaline Phosphatase 100 U/L (45-117); Anion Gap 5 (5-15); BUN 23 mg/dL (7-18); BUN/Creat Ratio 12.3 RATIO (10-20); Calcium,Total 9.1 mg/dL (8.5-10.1); Chloride 110 mmol/L (98-107); Creatinine, Serum 1.87 mg/dL (0.70-1.30); EST Glomerular Filtration Rate 39 mL/min (>60); Est Glom Filt Rate - Afr Amer 47 mL/min (>60); Estimated Creatinine Clearance 53.09 ml/min; Globulin 3.3 g/dL (2.2-4.2); Glucose 174 mg/dL (74-106); Potassium 3.9 mmol/L (3.5-5.1); Sodium Level 139 mmol/L (136-145); Troponin-I HS 14 pg/mL (3.0-78.0)
[2024-03-06 21:23] LABS: Absolute Neutrophil Count 3.5 X10^3/uL (2.0-7.7); Basophil# 0.12 X10^3/uL; Basophil% 1.6 % (0-1); Eosinophil# 0.35 X10^3/uL; Eosinophils% 4.7 % (0-5); Hematocrit 44.5 % (40-54); Hemoglobin 14.7 g/dL (13.0-16.5); Lymphocyte % 38.7 % (19-41); Mean Corpuscular Hgb 29.5 pg (27.0-32.0); Mean Corpuscular Volume 89.4 fL (80-94); Mean Platelet Vol. 9.4 fl (6.2-12.0); Monocyte# 0.58 X10^3/uL; Monocyte% 7.7 % (0-10); NRBC Flagged by Analyzer 0 % (0-5); Neutrophil # 3.52 X10^3/uL (2.7-7.7); Neutrophil % 46.9 % (47-70); Platelet Count 201 K/mm3 (150-450); RBC Distribution Width CV 13.3 % (11.6-14.6); Red Blood Count 4.98 M/mm3 (4.6-6.2); White Blood Count 7.5 K/mm3 (4.4-11.0)
--- NOTE | 2024-03-06 21:47 | HP.PCM.HOS_ITS ---
HPI - General General Date of Admission: 03/06/24 Date of Service: 03/06/24 Chief Complaint: RLE weakness, R facial droop, paresthesias. HPI Narrative The patient is a 63 y/o M w/ PMHx: Obesity, CAD s/p CABG, PAF, HTN, HLD, Gout, CKD stage III unclear subtype per GFR trending, Diabetes mellitus type II, GERD who presents to the [facility] ED on 03/06/24 with history of onset right lower extremity weakness specifically working at the [employer] when he started to feel weak and his right lower extremity felt abnormal with paresthesias causing stumbling as well as transient right face paresthesias potentially asymmetric/droop with no vision changes but specifically not numb but different than the other side with no upper extremity weaknesses prompting bystanders to call 911 however upon their arrival evaluation patient declined and came to the ED on his own. He does report that before his CABG he would have intermittent paresthesias to his right lower extremity but nothing ever like this and it was more so paresthesias with numbness at that time. He states never having it worked up or evaluated previously. In the ED physician NIH stroke scale assessment noted to be 0 with resolution of previous right facial droop and right leg weakness. Workup in the ED included T98.8, heart rate 72, BP 1 7400, respiratory rate 15, 95% on room air with most recent repeat vital signs heart rate 60, BP 145/89, respiratory rate 20, 93% on room air, CBC with WBC 7.5, human 14.7, platelet 201 without marked shift, CMP with chloride 110, BUN/: 23/1.87, GFR 39, glucose 174, hepatic profile unremarkable, troponin 14, urinalysis with glucose of thousand otherwise not marked appearing, chest x-ray with no acute cardiopulmonary findings, CT of the brain with no acute intracranial findings, EKG with SR without acute evidence of ischemia. [facility] Medical History (Updated 03/06/24 @ 22:[address] Goldie Medina MD) Gout Paroxysmal atrial fibrillation Obesity CKD (chronic kidney disease), stage III Coronary artery disease Hyperlipidemia Diabetes mellitus Hypertension Home Medications ?Medication ?Instructions ?Recorded ?Last Taken ?Type apixaban 5 mg tablet (Eliquis) 5 mg PO BID #60 tabs 12/04/23 Unknown Rx omega 7-wcm-qoq-fish oil 300 2 cap PO BID 12/04/23 Unknown History mg-1,000 mg capsule (Fish Oil) pravastatin 40 mg tablet 80 mg PO QHS 12/04/23 Unknown History diltiazem HCl 120 mg 120 mg PO DAILY #30 caps 12/09/23 Unknown Rx capsule,extended release 24 hr (Cardizem CD) aspirin 81 mg tablet,delayed 81 mg PO DAILY 01/19/24 Unknown History release (Adult Aspirin Regimen) colchicine 0.6 mg tablet 0.6 mg PO DAILY 01/19/24 Unknown History empagliflozin 25 mg tablet 25 mg PO DAILY 01/19/24 Unknown History (Jardiance) multivitamin 1 tab PO DAILY 01/19/24 Unknown History pantoprazole 40 mg tablet,delayed 40 mg PO DAILY 01/19/24 Unknown History release Allergy/AdvReac Type Severity Reaction Status Date / Time No Known Allergies Allergy Verified 03/06/24 19:58 Family History (Updated 03/06/24 @ 22:[address] Goldie Medina MD) Mother CVA (cerebral vascular accident) Hypertension HLD (hyperlipidemia) Father HLD (hyperlipidemia) Myocardial infarction Hypertension Heart disease CAD (coronary artery disease) Surgical History S/P hernia repair Hx of CABG Social History (Updated 03/06/24 @ 22:[address] Goldie Medina MD) household members: spouse housing: house Smoking Status: Never smoker alcohol intake: never substance use type: does not use ROS ROS Narrative Admission Review of Systems: CONSTITUTIONAL: No weight loss, fever, chills, + weakness or fatigue. HEENT: + R sided facial paresthesias/droop. Eyes: No visual loss, blurred vision, double vision or yellow sclerae. Ears, Nose, Throat: No hearing loss, sneezing, congestion, runny nose or sore throat. SKIN: No rash or itching, lesions, wounds. CARDIOVASCULAR: No chest pain, chest pressure or chest discomfort, palpitations, edema, orthopnea, syncopal events. RESPIRATORY: No shortness of breath, cough or sputum, wheezing, hemoptysis. GASTROINTESTINAL: No anorexia, nausea, vomiting or diarrhea, abdominal pain, melena, BRBPR. GENITOURINARY: No dysuria, frequency, urgency or retention. NEUROLOGICAL: + Transient right lower extremity weakness/paresthesias as well as possible right facial paresthesias, drooping, per potentially altered speech transiently and confusion. No headache, dizziness, syncope, change in bowel or bladder control, seizure. MUSCULOSKELETAL: + muscle, back pain, joint pain or stiffness. HEMATOLOGIC: No anemia. Easy bleeding/bruising. LYMPHATICS: No enlarged nodes. No history of splenectomy. PSYCHIATRIC: No history of depression or anxiety. ENDOCRINOLOGIC: No reports of sweating, cold or heat intolerance. No polyuria or polydipsia. ALLERGIES: No history of asthma, hives, eczema or rhinitis. Vital Signs Vital Signs Vital Signs: 03/06/24 19:55 03/06/24 20:55 03/06/24 21:00 Temperature 98.1 F Temperature Source Temporal Pulse Rate 72 61 60 Respiratory Rate 15 18 20 H Blood Pressure 170/100 H 156/88 H 145/89 H Blood Pressure Mean 123 110 107 Pulse Ox 95 96 93 Oxygen Delivery Method Room Air Room Air Room Air Weight Weight: 255 lb Body Mass Index (BMI) 34.5 Physical Exam Narrative Physical Examination: General: Awake, alert, oriented x 3 and cooperative, seated upright in the ED bed in no apparent distress, notes ongoing resolved neurological symptoms. Skin: Normal color, normal turgor, no icterus, no cyanosis. HEENT: AT/NC, EOMI, PERRLA, MMM, no carotid bruits or JVD noted. Lungs: CTA bilaterally, moderate effort, mild decrease BL bases, no rales, ronchi or wheezing. Heart: Mildly bradycardic with regular rhythm; no gallop, rub audible. Abdomen: Soft, obese, NTTP, ND, mildly hyperactive BS, no appreciated HSM. Extremities: No cyanosis, clubbing, or edema. Neurological: Patient awake, alert, oriented as noted, cognitive function intact; pupils equally reactive to light and accommodation, cranial nerves grossly normal, moving all 4 extremities, no focal deficits, strength preserved, finger-nose and [id number] appropriate, sensation intact, equivocal Babinski. Psychiatric: Affect appears normal, no acute evidence of depressive or anxiety feelings. Results Lab / Micro Data 03/06/24 21:17 03/06/24 20:00 Labs: Laboratory Results - last 24 hr 03/06/24 20:00: Sodium 139, Potassium 3.9, Chloride 110 H, Carbon Dioxide 24.0, Anion Gap 5, BUN 23 H, Creatinine 1.87 H, Estim Creat Clear Calc 53.09, Est GFR (MDRD) Af Amer 47 L, Est GFR (MDRD) Non-Af 39 L, BUN/Creatinine Ratio 12.3, G lucose 174 H, Calcium 9.1, Total Bilirubin 0.50, AST 20, ALT 29, Alkaline Phosphatase 100, Troponin I High Sens 14, Total Protein 7.0, Albumin 3.7, Globulin 3.3, Albumin/Globulin Ratio 1.1 03/06/24 20:28: Urine Color Straw, Urine Clarity Clear, Urine pH 6.5, Ur Specific [place] 1.010, Urine Protein 15 H, Urine Glucose (UA) 1000 H, Urine Ketones Negative, Urine Occult Blood Negative, Urine Nitrite Negative, Urine Bilirubin Negative, Urine Urobilinogen Normal, Ur Leukocyte Esterase Negative, Urine RBC 0-5 SEEN, Urine WBC 0-5 SEEN, Ur Squamous Epith Cells 0-5 SEEN, Urine Bacteria 0 SEEN, Urine Mucus 0 SEEN 03/06/24 21:17: WBC 7.5, RBC 4.98, Hgb 14.7, Hct 44.5, MCV 89.4, MCH 29.5, MCHC 33.0, RDW Std Deviation 43.0, RDW Coeff of Ghulam 13.3, Plt Count 201, MPV 9.4, Immature Gran % (Auto) 0.400, Neut % (Auto) 46.9 L, Lymph % (Auto) 38.7, [place]meralda % (Auto) 7.7, Eos % (Auto) 4.7, Baso % (Auto) 1.6 H, Absolute Neuts (auto) 3.5, Absolute Lymphs (auto) 2.90, Nucleated RBC % 0 Imaging Radiology Impression Brain CT 03/06/24 20:02 IMPRESSION: No acute findings in the head/brain. Electronically Signed: Lincoln Keane MD at 20:43 EDT , Chest X-Ray 03/06/24 20:12 IMPRESSION: No radiographic evidence of acute cardiopulmonary disease. Electronically Signed: Lincoln Keane MD at 20:41 EDT Reading Location ID and State: Formerly named [facility] / [place] , Service support , Assessment & Plan Assessment/Plan (1) TIA (transient ischemic attack): PLAN: Plan The patient is a 63 y/o M w/ PMHx: Obesity, CAD s/p CABG, PAF, HTN, HLD, Gout, CKD stage III unclear subtype per GFR trending, Diabetes mellitus type II, GERD who presents to the [facility] ED on 03/06/24 with history of onset right lower extremity weakness specifically working at the [employer] when he started to feel weak and his right lower extremity felt abnormal with paresthesias causing stumbling as well as transient right face paresthesias potentially asymmetric/droop with no vision changes but specifically not numb but different than the other side with no upper extremity weaknesses prompting bystanders to call 911 however upon their arrival evaluation patient declined and came to the ED on his own. #1. Right lower extremity paresthesias, weakness as well as potentially R facial involvement with paresthesias/facial droop concerning for TIA/CVA: Will admit to PCU, will obtain CTA head and neck given creatinine clearance 53, will obtain MRI Brain, ECHO, PT/OT/Speech/Nutrition evaluation per protocol. Will allow permissive HTN, maintain on asa, statin w/ AM FLP, fall precautions. Mag, TSH, FLP, HgbA1c requested. Maintain on fall and aspiration precautions. Will place neurology consultation request. #2. PAF: We will continue patient home apixaban regimen, hold diltiazem temporarily for permissive hypertension but low threshold to give dose if necessary if rate and appropriate. #3. CAD: Status post CABG HUMPHREY-LAD Maddy-Ramus 12/23/2023, continue aspirin, statin, temporarily holding hypertensive regimen per stroke protocol as noted, not on beta-christina therapy as on diltiazem with PAF history, also not on JASMYN inhibitor/ARB per review. #4. Hypertension: Will maintain permissive hypertension with as needed agents per stroke protocol. #5. Hyperlipidemia: Continue home statin regimen. AM FLP. #6. Diabetes mellitus type II: Hold oral home regimen, nutrition consulted and hemoglobin A1c requested per stroke protocol, maintain on ADA diet, accu checks w/ ISS. #7. Chronic Kidney Disease Stage III, unclear subtype per GFR trend: Admission BUN/Cr 23/1.87, GFR 39, baseline renal function 1.6-2.1 per prior trending review, repeat BMP in AM. #8. Obesity: Weight loss and lifestyle changes encouraged. #9. GERD: We will continuation of PPI. #10. Gout: We will continue patient on colchicine regimen. #11. DVT prophylaxis: Will continue patient home apixaban regimen. #12. CODE status: Patient HCPOA and living will are not in place but he notes his was present would be his medical decision-maker if necessary. Discussed CODE status at length including difference between FULL code, DNR-CCA and DNR-CC status. Following discussions about the differences in these status, requested Full Code status. Charges/Coding Visit Charges Inpatient E&M: 29852 Init Hosp L3
--- NOTE | 2024-03-06 21:55 | CT_ITS ---
INDICATION: Leg weakness EXAMINATION: CTA CAROTIDS AND BRAIN - CTA Head and Neck W/ Contrast Injection (and W/O Contrast Images if performed) TECHNIQUE: Routine CTA of the head and neck was performed with post processing of the angiographic images for volumetric reconstructions. In addition, images were obtained of the [place]. Nascet criteria using the distal ICAs for comparison were used for evaluation of stenoses. 3D reconstructions were reviewed. A radiation dose optimization technique was used for this scan. IV Contrast dosage and agent: 100 cc [id number] COMPARISON: Noncontrast head CT same date FINDINGS: --NECK: AORTIC ARCH AND BRANCHES: Vessel origins patent. RIGHT CCA: No occlusion, significant stenosis or dissection. RIGHT ICA: No occlusion, significant stenosis or dissection. LEFT CCA: No occlusion, significant stenosis or dissection. LEFT ICA: No occlusion, significant stenosis or dissection. RIGHT VERTEBRAL ARTERY: No occlusion, significant stenosis or dissection. LEFT VERTEBRAL ARTERY: No occlusion, significant stenosis or dissection. NECK SOFT TISSUES: Unremarkable. LUNG APICES: Clear. BONES: Degenerative changes. --HEAD: --Anterior circulation: ICAs: No significant stenosis at the intracranial/visualized segments. ACAs: No significant stenosis at the visualized segments. ACOM: Present. MCAs: No significant stenosis at the visualized segments. --Posterior circulation: PCOMs: Patent on the right. living advisor: No significant stenosis at the visualized segments. BASILAR ARTERY: No significant stenosis. VERTEBRAL ARTERIES: No significant stenosis at the intradural/visualized segments. No evidence of intracranial aneurysm or vascular malformation. CT/CTA Head AND Neck W/ Contrast IMPRESSION: Negative CTA Head and Neck. Electronically Signed: Iain Mccullough MD at 23:39 EDT ,
[2024-03-06 21:59] VITALS: BP 152/101; PULSE 57; RESP 13; TEMP 36.6; O2SAT 96
[2024-03-06 22:11] VITALS: BMI 36.3
[2024-03-06 22:47] LABS: Magnesium 2.2 mg/dL (1.6-2.6)
--- NOTE | 2024-03-06 23:00 | MRI_ITS ---
STUDY: MRI BRAIN WITHOUT CONTRAST REASON FOR EXAM: Male, 63 years old. TIA TECHNIQUE: Standardized multiplanar fat and water weighted pulse sequences were obtained. COMPARISON: Head CT dated March 06, 2024 FINDINGS: There is mild cerebral atrophy with widening of the extra-axial spaces and ventricular dilatation. There are a limited number of small white matter hyperintensities, distributed throughout the deep white matter tracts of the cerebral hemispheres, consistent with mild chronic white matter ischemic changes. There is no evidence for recent intracranial ischemia or other cause of cytotoxic edema on diffusion weighted imaging (DWI). There are no demyelinating plagues of the supratentorial brain, brainstem or cerebellum. There are no findings suspicious for multiple sclerosis (MS). Normal T2* images of the brain without demonstrated susceptibility artifact. There is no demonstrated hemosiderin stain. Normal bilateral basal ganglia. Normal thalami. There is no extra-axial fluid accumulation. Normal flow voids within the major intracranial circulation suggesting patency by spin echo criteria. Normal sella turcica, pituitary gland, infundibular stalk, optic chiasm and hypothalamus. Normal tectal plate and pineal gland. Normal midbrain, yogi and medulla. Normal cerebellum. Normal basal cisterns. Normal bilateral temporal bones. Normal bilateral internal auditory canals. No demonstrated orbital abnormality, within the constraints of a routine brain study. Normal visualized paranasal sinuses. Normal calvarium and skull base. Normal visualized soft tissue structures. Normal visualized upper cervical spine. MRI/Brain without Contrast IMPRESSION: 1. Minimal chronic ischemic changes changes of the brain, as described above. Electronically Signed: Gregor Mccormack MD at 10:32 EDT ,
--- NOTE | 2024-03-06 23:00 | ECHOD_ITS ---
Reason For Study: TIA/CVA Procedure This was a 2D Doppler, Color Flow transthoracic echocardiogram. Exam performed portable in patient room. Left Ventricle Normal LV size. Moderate concentric left ventricular hypertrophy. Left ventricular systolic function is normal. The left ventricular ejection fraction is 70 %. Stage 1 diastolic dysfunction. No regional wall motion abnormalities noted. Right Ventricle Normal RV size. Normal systolic function. Atria Normal left atrium. Normal right atrium. Bubble contrast study negative for right to left interatrial shunt. Mitral Valve Normal mitral valve. Tricuspid Valve Normal tricuspid valve. Mild tricuspid valve insufficiency. Pulmonary artery systolic pressure is 24 mmHg. Aortic Valve Trisinus/trileaflet aortic valve. Mild focal aortic valve calcification. Pulmonic Valve Normal pulmonic valve. Great Vessels Normal aortic root. The pulmonary artery is normal size. Normal inferior vena cava. Pericardium/Pleural No pericardial effusion. Medication Performed a rapid injection of agitated mix of 9 cc saline and 1cc air to assess for atrial septal defect. MMode/2D Measurements & Calculations LVIDd: 4.1 cm IVSd: 1.7 cm LVOT diam: 2.5 cm LVIDs: 2.7 cm LVPWd: 1.3 cm RVDd: 3.7 cm FS: 34.3 % LVOT area: 4.9 cm2 Ao root diam: 3.5 cm LAV(MOD-bp): 55.7 ml LVAd ap4: 33.7 cm2 LAV(MOD-bp) Indexed: 23.1 ml/m2 LVLd ap4: 8.9 cm LAV(MOD-sp2): 67.3 ml EDV(MOD-sp4): 105.9 ml LAV(MOD-sp4): 35.3 ml EDV(sp4-el): 108.1 ml LVAs ap4: 15.0 cm2 LVLs ap4: 7.3 cm ESV(MOD-sp4): 26.7 ml ESV(sp4-el): 26.3 ml EF(MOD-sp4): 74.8 % EF(sp4-el): 75.7 % LVAd ap2: 27.0 cm2 SV(MOD-sp4): 79.1 ml SV(MOD-sp2): 41.8 ml LVLd ap2: 8.4 cm EDV(MOD-sp2): 70.4 ml EDV(sp2-el): 74.0 ml LVAs ap2: 15.5 cm2 LVLs ap2: 7.4 cm ESV(MOD-sp2): 28.6 ml ESV(sp2-el): 27.4 ml EF(MOD-sp2): 59.4 % SV(sp4-el): 81.8 ml LA dimension(2D): 4.2 cm LA A4 area: 14.7 cm2 RA A4 area: 13.2 cm2 TAPSE: 2.7 cm Time Measurements MV dec time: 0.22 sec Doppler Measurements & Calculations MV E max balwinder: 56.3 cm/sec Lat Peak E' Balwinder: 10.1 cm/sec Med Peak E' Balwinder: 9.1 cm/sec MV A max balwinder: 77.1 cm/sec E/E' lat: 5.6 E/E' med: 6.2 MV E/A: 0.73 Ao V2 max: 138.9 cm/sec LV V1 max: 101.8 cm/sec MV dec slope: 256.6 cm/sec2 Ao max P.7 mmHg LV V1 max P.1 mmHg Ao V2 mean: 102.3 cm/sec LV V1 mean P.9 mmHg Ao mean P.5 mmHg LV V1 mean: 83.2 cm/sec Ao V2 VTI: 31.8 cm LV V1 VTI: 24.7 cm AV (velocity ratio): 0.78 DANIEL(I,D): 3.8 cm2 DANIEL(V,D): 3.6 cm2 SV(LVOT): 120.0 ml PA V2 max: 85.8 cm/sec PI end-d balwinder: 84.8 cm/sec PA max PG (full): 0.66 mmHg TR max balwinder: 225.3 cm/sec TR max P.3 mmHg ECHO/Echo Complete Interpretation Summary Normal LV size. Left ventricular systolic function is normal. The left ventricular ejection fraction is 70 %. Stage 1 diastolic dysfunction. Moderate concentric left ventricular hypertrophy. Bubble contrast study negative for right to left interatrial shunt. Ordering Physician: Goldie Medina Performed By: Cecilia Duque RDCS and Student
[2024-03-06 23:20] VITALS: O2SAT 95
[2024-03-06] MEDS: 0.9% Normal Saline (1000mL) 1,000 ML 100 ML IV (23:32)
[2024-03-06] MEDS: APIXABAN 5 MG TABLET PO (23:33)
[2024-03-06] MEDS: Pravastatin 80 MG Tablet PO (23:33)
[2024-03-07 02:00] VITALS: BMI 36.3
[2024-03-07 02:06] VITALS: BP 158/98; PULSE 51; RESP 16; TEMP 36.4; O2SAT 97
[2024-03-07 03:47] LABS: Bedside Glucose 114 mg/dL (74-106)
[2024-03-07 06:00] VITALS: BP 150/100; PULSE 57; RESP 18; TEMP 36.6; O2SAT 95; BMI 36.2
[2024-03-07 07:03] LABS: Absolute Neutrophil Count 5.4 X10^3/uL (2.0-7.7); Basophil# 0.11 X10^3/uL; Basophil% 1.2 % (0-1); Eosinophil# 0.37 X10^3/uL; Eosinophils% 4.1 % (0-5); Hematocrit 48.2 % (40-54); Lymphocyte % 26.8 % (19-41); Mean Corp Hgb Conc 33.2 g/dL (32-36); Mean Corpuscular Volume 87.3 fL (80-94); Mean Platelet Vol. 8.9 fl (6.2-12.0); Monocyte# 0.58 X10^3/uL; Monocyte% 6.5 % (0-10); NRBC Flagged by Analyzer 0 % (0-5); Neutrophil # 5.44 X10^3/uL (2.7-7.7); Platelet Count 211 K/mm3 (150-450); RBC Distribution Width SD 41.7 fl (35.1-43.9); Red Blood Count 5.52 M/mm3 (4.6-6.2); White Blood Count 8.9 K/mm3 (4.4-11.0)
[2024-03-07 07:03] LABS: Bedside Glucose 134 mg/dL (74-106)
[2024-03-07 07:43] LABS: AST(SGOT) 15 U/L (15-37); Alanine Aminotransfer ALT/SGPT 24 U/L (16-61); Albumin, Serum 3.1 g/dL (3.2-5.0); Alkaline Phosphatase 85 U/L (45-117); Anion Gap 10 (5-15); BUN 19 mg/dL (7-18); Calcium,Total 8.8 mg/dL (8.5-10.1); Chloride 109 mmol/L (98-107); Cholesterol 110 mg/dL (200); Creatinine, Serum 1.72 mg/dL (0.70-1.30); EST Glomerular Filtration Rate 43 mL/min (>60); Est Glom Filt Rate - Afr Amer 52 mL/min (>60); Estimated Creatinine Clearance 59.14 ml/min; Glucose 137 mg/dL (74-106); High Density Lipoprotein 29 mg/dL; Protein, Total 6.1 g/dL (6.4-8.2); Sodium Level 141 mmol/L (136-145); Triglycerides 202 mg/dL; Very Low Density Lipoprotein 40 mg/dL (5-40)
[2024-03-07 08:02] LABS: Hemoglobin A1c 5.9 % (3.8-5.6)
[2024-03-07] MEDS: APIXABAN 5 MG TABLET PO (09:10)
[2024-03-07] MEDS: Pantoprazole Sodium 40 MG Tablet PO (09:10)
[2024-03-07] MEDS: Aspirin E.C. 81 MG Tablet PO (09:10)
[2024-03-07] MEDS: Atorvastatin Calcium 80 MG Tablet PO (09:13)
[2024-03-07] MEDS: Amiodarone 200 MG Tablet PO (09:13)
--- NOTE | 2024-03-07 10:19 | PN.HOSP_ITS ---
Reason for Visit Reason for Visit: Diagnoses Transient cerebral ischemic attack, unspecified (03/06/24) Subjective Subjective No further weakness. States that he only had weakness in his right lower leg and then he stumbled. Went to first-aid station where they are concerned about right facial droop and send up to the emergency room. Objective Data Objective Data Vital Signs: Vital Signs Temp Pulse Resp BP Pulse Ox O2 Del Method 36.6 C 57 L 18 150/100 H 95 Room Air 03/07/24 06:00 03/07/24 06:00 03/07/24 06:00 03/07/24 06:00 03/07/24 06:00 03/07/24 08:47 Oxygen Delivery Method Room Air Weight: 121.4 kg Body Mass Index (BMI) 36.3 Intake & Output: Intake and Output for Last 24 Hours 03/05/24 03/06/24 03/07/24 23:59 23:59 23:59 Intake Total 240 / 240 1000 / 1000 Balance 240 / 240 1000 / 1000 Lab / Micro Data 03/07/24 06:37 03/07/24 06:37 Labs: Laboratory Results - last 24 hr 03/06/24 20:00: Sodium 139, Potassium 3.9, Chloride 110 H, Carbon Dioxide 24.0, Anion Gap 5, BUN 23 H, Creatinine 1.87 H, Estim Creat Clear Calc 53.09, Est GFR (MDRD) Af Amer 47 L, Est GFR (MDRD) Non-Af 39 L, BUN/Creatinine Ratio 12.3, G lucose 174 H, Calcium 9.1, Magnesium 2.2, Total Bilirubin 0.50, AST 20, ALT 29, Alkaline Phosphatase 100, Troponin I High Sens 14, Total Protein 7.0, Albumin 3.7, Globulin 3.3, Albumin/Globulin Ratio 1.1 03/06/24 20:28: Urine Color Straw, Urine Clarity Clear, Urine pH 6.5, Ur Specific [place] 1.010, Urine Protein 15 H, Urine Glucose (UA) 1000 H, Urine Ketones Negative, Urine Occult Blood Negative, Urine Nitrite Negative, Urine Bilirubin Negative, Urine Urobilinogen Normal, Ur Leukocyte Esterase Negative, Urine RBC 0-5 SEEN, Urine WBC 0-5 SEEN, Ur Squamous Epith Cells 0-5 SEEN, Urine Bacteria 0 SEEN, Urine Mucus 0 SEEN 03/06/24 21:17: WBC 7.5, RBC 4.98, Hgb 14.7, Hct 44.5, MCV 89.4, MCH 29.5, MCHC 33.0, RDW Std Deviation 43.0, RDW Coeff of Ghulam 13.3, Plt Count 201, MPV 9.4, Immature Gran % (Auto) 0.400, Neut % (Auto) 46.9 L, Lymph % (Auto) 38.7, [place] % (Auto) 7.7, Eos % (Auto) 4.7, Baso % (Auto) 1.6 H, Absolute Neuts (auto) 3.5, Absolute Lymphs (auto) 2.90, Nucleated RBC % 0 03/06/24 23:38: POC Glucose 114 H 03/07/24 05:59: POC Glucose 134 H 03/07/24 06:37: WBC 8.9, RBC 5.52, Hgb 16.0, Hct 48.2, MCV 87.3, MCH 29.0, MCHC 33.2, RDW Std Deviation 41.7, RDW Coeff of Ghulam 13.0, Plt Count 211, MPV 8.9, Immature Gran % (Auto) 0.400, Neut % (Auto) 61.0, Lymph % (Auto) 26.8, [place] % (Auto) 6.5, Eos % (Auto) 4.1, Baso % (Auto) 1.2 H, Absolute Neuts (auto) 5.4, Absolute Lymphs (auto) 2.40, Nucleated RBC % 0, Sodium 141, Potassium 4.0, C hloride 109 H, Carbon Dioxide 22.0, Anion Gap 10, BUN 19 H, Creatinine 1.72 H, Estim Creat Clear Calc 59.14, Est GFR (MDRD) Af Amer 52 L, Est GFR (MDRD) Non-Af 43 L, BUN/Creatinine Ratio 11.0, Glucose 137 H, Hemoglobin A1c 5.9 H, Calcium 8.8, Total Bilirubin 0.40, AST 15, ALT 24, Alkaline Phosphatase 85, Total Protein 6.1 L, Albumin 3.1 L, Globulin 3.0, Albumin/Globulin Ratio 1.0, T riglycerides 202 H, Cholesterol 110, LDL Cholesterol 41, VLDL Cholesterol 40, H DL Cholesterol 29 L, TSH 1.800 Radiography Diagnostic Testing: Radiology Impression Brain CT 03/06/24 20:02 IMPRESSION: No acute findings in the head/brain. Electronically Signed: Lincoln Keane MD at 20:43 EDT , ADDENDUM: 03/07/24 0804 IMPRESSION: No metallic foreign body within the head or orbits to preclude MRI. Electronically Signed: Cole Santana MD at 7:57 EDT , Chest X-Ray 03/06/24 20:12 IMPRESSION: No radiographic evidence of acute cardiopulmonary disease. Electronically Signed: Lincoln Keane MD at 20:41 EDT , Head/Neck CTA 03/06/24 21:55 IMPRESSION: Negative CTA Head and Neck. Electronically Signed: Iain Mccullough MD at 23:39 EDT , Rhythm Strip Rhythm Strip: Sinus Rhythm Rate: 61 Ectopy: None Physical Exam Const alert and no apparent distress HEENT HEENT Narrative: No facial droop Neuro Sensorium / Orientation: awake and alert Assessment & Plan Assessment/Plan (1) TIA (transient ischemic attack): PLAN: Plan Right leg weakness and paresthesia * Stroke workup, including an MRI of the brain was negative. Question whether or not this was a TIA versus some radicular component from his back as he states that he has had this multiple times before. He states that when he does get this he does not have back pain. Though that does not rule out some nerve root impingement/disc herniation. Patient to continue with his current medication that he takes for his paroxysmal atrial fibrillation. Neurology does recommend that he follow-up in 4 to 6 weeks. Chronic conditions * PAF: We will continue patient home apixaban regimen, hold diltiazem temporarily for permissive hypertension but low threshold to give dose if necessary if rate and appropriate. * CAD: Status post CABG HUMPHREY-LAD Maddy-Ramus 12/23/2023, continue aspirin, statin, temporarily holding hypertensive regimen per stroke protocol as noted, not on beta-christina therapy as on diltiazem with PAF history, also not on JASMYN inhibitor/ARB per review. * Hypertension: Will maintain permissive hypertension with as needed agents per stroke protocol. * Hyperlipidemia: Continue home statin regimen. AM FLP. * Diabetes mellitus type II: Hold oral home regimen, nutrition consulted and hemoglobin A1c requested per stroke protocol, maintain on ADA diet, accu checks w/ ISS. * Chronic Kidney Disease Stage III, unclear subtype per GFR trend: Admission BUN/Cr 23/1.87, GFR 39, baseline renal function 1.6-2.1 per prior trending review, repeat BMP in AM. * Obesity: Weight loss and lifestyle changes encouraged. * GERD: We will continuation of PPI. * Gout: We will continue patient on colchicine regimen. DVT prophylaxis: Will continue patient home apixaban regimen. Code: full
[2024-03-07 11:00] VITALS: BP 150/87; PULSE 66; RESP 16; TEMP 36.4; O2SAT 97
[2024-03-07 11:29] LABS: Bedside Glucose 132 mg/dL (74-106)
--- NOTE | 2024-03-07 12:04 | CASEMGMT ---
SW completed a PHQ9 with patient as he may have had a TIA. Patient scored a 1 which indicates minimal depression. Patient declined any resources. Gracie REDDY
--- NOTE | 2024-03-07 12:08 | CON.PCM.NE_ITS ---
Assessment and Plan: Neuro Assessment/Plan TIERA MCCRACKEN is a 63 M with a past medical history of CAD s/p CABG, HTN, DMII, being evaluated by Teleneurology for transient right leg weakness. CThead, CTA with no acute changes, MRI with no acute stroke Diagnosis: TIA Plan: cont home statin cont home Eliaquis TTE vascular risk modification follow up with neurology 4-6 weeks after discharge HPI Consult Data Date of Consult: 03/07/24 HPI Narrative HPI Narrative: The patient is a 63 y/o M w/ PMHx: Obesity, CAD s/p CABG, PAF, HTN, HLD, , CKD stage III u Diabetes mellitus type II, GERD who presents to the [facility] ED on 03/06/24 with acute right leg weakness and numbness that he felt when he was working, he went to the [facility] tent in the event who noticed a facial droop and referred him to the ED. [facility] Medical History (Updated 03/06/24 @ 22:[address] Tuyet Shah DO) Gout Paroxysmal atrial fibrillation Obesity CKD (chronic kidney disease), stage III Coronary artery disease Hyperlipidemia Diabetes mellitus Hypertension Home Medications ?Medication ?Instructions ?Recorded ?Last Taken ?Type apixaban 5 mg tablet (Eliquis) 5 mg PO BID #60 tabs 12/04/23 Unknown Rx omega 5-lns-smq-fish oil 300 2 cap PO BID 12/04/23 Unknown History mg-1,000 mg capsule (Fish Oil) aspirin 81 mg tablet,delayed 81 mg PO DAILY 01/19/24 Unknown History release (Adult Aspirin Regimen) empagliflozin 25 mg tablet 25 mg PO DAILY 01/19/24 Unknown History (Jardiance) multivitamin 1 tab PO DAILY 01/19/24 Unknown History pantoprazole 40 mg tablet,delayed 40 mg PO DAILY 01/19/24 Unknown History release amiodarone 200 mg tablet 200 mg PO DAILY 03/06/24 Unknown History atorvastatin 80 mg tablet 80 mg PO DAILY 03/06/24 Unknown History Allergy/AdvReac Type Severity Reaction Status Date / Time No Known Allergies Allergy Verified 03/06/24 19:58 Family History (Updated 03/06/24 @ 22:[address] Goldie Medina MD) Mother CVA (cerebral vascular accident) Hypertension HLD (hyperlipidemia) Father HLD (hyperlipidemia) Myocardial infarction Hypertension Heart disease CAD (coronary artery disease) Surgical History S/P hernia repair Hx of CABG Social History (Updated 03/06/24 @ 22:[address] Goldie Medina MD) household members: spouse housing: house Smoking Status: Never smoker alcohol intake: never substance use type: does not use Vital Signs Vital Signs Vital Signs: 03/06/24 19:55 03/06/24 20:55 03/06/24 21:00 Temperature 98.1 F Temperature Source Temporal Pulse Rate 72 61 60 Respiratory Rate 15 18 20 H Respiratory Effort Respiratory Depth Respiratory Pattern Blood Pressure 170/100 H 156/88 H 145/89 H Blood Pressure Mean 123 110 107 Blood Pressure Source Blood Pressure Position Blood Pressure Location Pulse Ox 95 96 93 Oxygen Delivery Method Room Air Room Air Room Air 03/06/24 21:59 03/06/24 23:15 03/06/24 23:20 Temperature 98 F Temperature Source Pulse Rate 57 L Respiratory Rate 13 Respiratory Effort Normal Non-Labored Respiratory Depth Normal Respiratory Pattern Normal Blood Pressure 152/101 H Blood Pressure Mean 118 Blood Pressure Source Blood Pressure Position Blood Pressure Location Pulse Ox 96 95 Oxygen Delivery Method Room Air Room Air 03/07/24 02:06 03/07/24 02:10 03/07/24 06:00 Temperature 97.5 F L 97.9 F Temperature Source Oral Oral Pulse Rate 51 L 57 L Respiratory Rate 16 18 Respiratory Effort Normal Non-Labored Respiratory Depth Normal Respiratory Pattern Normal Blood Pressure 158/98 H 150/100 H Blood Pressure Mean 118 116 Blood Pressure Source Monitor Monitor Blood Pressure Position Semi-Fowlers Semi-Fowlers Blood Pressure Location Right Forearm Right Forearm Pulse Ox 97 95 Oxygen Delivery Method Room Air Room Air Room Air 03/07/24 08:47 03/07/24 11:00 Temperature 97.5 F L Temperature Source Temporal Pulse Rate 66 Respiratory Rate 16 Respiratory Effort Respiratory Depth Respiratory Pattern Blood Pressure 150/87 H Blood Pressure Mean 108 Blood Pressure Source Monitor Blood Pressure Position Semi-Fowlers Blood Pressure Location Right Forearm Pulse Ox 97 Oxygen Delivery Method Room Air Room Air Weight Weight: 121.4 kg Body Mass Index (BMI) 36.2 EEG Results Procedure Details EEG Procedure Details: TIERA MCCRACKEN is a 63 year old M with a past medical history of , who presents for evaluation of Electroencephalogram on DATE at TIME NIHSS NIHSS Nursing Documentation NIHSS Nursing Documentation: NIH Stroke Scale Start: 03/06/24 20:06 Freq: Status: Discharge Protocol: Activity Type Activity Date Activity User E-sign Co-sign Detail Recorded Client Recorded Date Recorded By Document 03/06/24 20:06 EM desktop 03/06/24 20:07 EM 03/06/24 20:06 NIH Stroke Scale [NIHSS] A score of 0 is normal or asymptomatic . Total possible score is 42. Inpatient: RN or Physician to activate a stroke alert for onset of new stroke symptoms or with NIHSS increase >/= 3 points. Following change in neurological status, NIHSS will be performed per physician order or more frequently PRN. -1a. Level of Consciousness Alert; keenly responsive -1b. LOC Questions Answers BOTH questions correctly. -1c. LOC Commands Performs both tasks correctly . -2. Best Gaze Normal -3. Visual No visual loss -4. Facial Palsy Normal symmetrical movements -5a. Left Arm No drift; arm holds 90 (or 45 ) degrees for full 10 seconds -5b. Right Arm No drift; arm holds 90 (or 45 ) degrees for full 10 seconds -6a. Left Leg No drift; leg holds 30-degree position for full 5 seconds -6b. Right Leg No drift; leg holds 30-degree position for full 5 seconds -7. Limb Ataxia Absent -8. Sensory Normal; no sensory loss -9. Best Language No aphasia; normal -10. Dysarthria Normal -11. Extinction and Inattention No abnormality -Total 0 Query Text:A score of 0 is normal or asymptomatic. Total possible score is 42 . ED: Notify Physician for NIHSS increase by > / = 3 points. Inpatient: RN or Physician to activate a stroke alert for NIHSS increase of > / = 3 points. NIHSS: Ischemic Stroke/TIA Start: 03/06/24 23:00 Text: For PCU Patients: NIH and Neuro Check every 4 Status: Active hours, PRN and with change in RN caregiver. Freq: [id number] Protocol: Activity Type Activity Date Activity User E-sign Co-sign Detail Recorded Client Recorded Date Recorded By Document 03/07/24 09:36 [facility] desktop 03/07/24 09:36 [facility] 03/07/24 09:36 -1a. Level of Consciousness Alert; keenly responsive -1b. LOC Questions Answers BOTH questions correctly. -1c. LOC Commands Performs both tasks correctly . -2. Best Gaze Normal -3. Visual No visual loss -4. Facial Palsy Normal symmetrical movements -5a. Left Arm No drift; arm holds 90 (or 45 ) degrees for full 10 seconds -5b. Right Arm No drift; arm holds 90 (or 45 ) degrees for full 10 seconds -6a. Left Leg No drift; leg holds 30-degree position for full 5 seconds -6b. Right Leg No drift; leg holds 30-degree position for full 5 seconds -7. Limb Ataxia Absent -8. Sensory Normal; no sensory loss -9. Best Language No aphasia; normal -10. Dysarthria Normal -11. Extinction and Inattention No abnormality -Total 0 Query Text:A score of 0 is normal or asymptomatic. Total possible score is 42 . ED: Notify Physician for NIHSS increase by > / = 3 points. Inpatient: RN or Physician to activate a stroke alert for NIHSS increase of > / = 3 points. Coma Scale [Assess] -Eye Opening Spontaneous -Motor Obeys Commands -Verbal Oriented [Total] -Coma Scale Total 15 Physical Exam Neuro oriented x3 and CN's II-XII intact bilaterally Sensorium / Orientation: awake, alert, oriented to person, oriented to place and oriented to time Coordination / Balance: [id number] test normal Speech: speech normal Sensory Exam: double simultaneous stimulation for sensation normal Motor Exam: strength 5/5 throughout Lab / Micro Data 03/07/24 06:37 03/07/24 06:37 Labs: Laboratory Results - last 24 hr 03/06/24 20:00: Sodium 139, Potassium 3.9, Chloride 110 H, Carbon Dioxide 24.0, Anion Gap 5, BUN 23 H, Creatinine 1.87 H, Estim Creat Clear Calc 53.09, Est GFR (MDRD) Af Amer 47 L, Est GFR (MDRD) Non-Af 39 L, BUN/Creatinine Ratio 12.3, G lucose 174 H, Calcium 9.1, Magnesium 2.2, Total Bilirubin 0.50, AST 20, ALT 29, Alkaline Phosphatase 100, Troponin I High Sens 14, Total Protein 7.0, Albumin 3.7, Globulin 3.3, Albumin/Globulin Ratio 1.1 03/06/24 20:28: Urine Color Straw, Urine Clarity Clear, Urine pH 6.5, Ur Specific [place] 1.010, Urine Protein 15 H, Urine Glucose (UA) 1000 H, Urine Ketones Negative, Urine Occult Blood Negative, Urine Nitrite Negative, Urine Bilirubin Negative, Urine Urobilinogen Normal, Ur Leukocyte Esterase Negative, Urine RBC 0-5 SEEN, Urine WBC 0-5 SEEN, Ur Squamous Epith Cells 0-5 SEEN, Urine Bacteria 0 SEEN, Urine Mucus 0 SEEN 03/06/24 21:17: WBC 7.5, RBC 4.98, Hgb 14.7, Hct 44.5, MCV 89.4, MCH 29.5, MCHC 33.0, RDW Std Deviation 43.0, RDW Coeff of Ghulam 13.3, Plt Count 201, MPV 9.4, Immature Gran % (Auto) 0.400, Neut % (Auto) 46.9 L, Lymph % (Auto) 38.7, [place] % (Auto) 7.7, Eos % (Auto) 4.7, Baso % (Auto) 1.6 H, Absolute Neuts (auto) 3.5, Absolute Lymphs (auto) 2.90, Nucleated RBC % 0 03/06/24 23:38: POC Glucose 114 H 03/07/24 05:59: POC Glucose 134 H 03/07/24 06:37: WBC 8.9, RBC 5.52, Hgb 16.0, Hct 48.2, MCV 87.3, MCH 29.0, MCHC 33.2, RDW Std Deviation 41.7, RDW Coeff of Ghulam 13.0, Plt Count 211, MPV 8.9, Immature Gran % (Auto) 0.400, Neut % (Auto) 61.0, Lymph % (Auto) 26.8, [place] % (Auto) 6.5, Eos % (Auto) 4.1, Baso % (Auto) 1.2 H, Absolute Neuts (auto) 5.4, Absolute Lymphs (auto) 2.40, Nucleated RBC % 0, Sodium 141, Potassium 4.0, C hloride 109 H, Carbon Dioxide 22.0, Anion Gap 10, BUN 19 H, Creatinine 1.72 H, Estim Creat Clear Calc 59.14, Est GFR (MDRD) Af Amer 52 L, Est GFR (MDRD) Non-Af 43 L, BUN/Creatinine Ratio 11.0, Glucose 137 H, Hemoglobin A1c 5.9 H, Calcium 8.8, Total Bilirubin 0.40, AST 15, ALT 24, Alkaline Phosphatase 85, Total Protein 6.1 L, Albumin 3.1 L, Globulin 3.0, Albumin/Globulin Ratio 1.0, T riglycerides 202 H, Cholesterol 110, LDL Cholesterol 41, VLDL Cholesterol 40, H DL Cholesterol 29 L, TSH 1.800 03/07/24 11:06: POC Glucose 132 H Rhythm Strip Rhythm Strip: Sinus Rhythm Rate: 61 Ectopy: None Imaging Radiology Impression Brain CT 03/06/24 20:02 IMPRESSION: No acute findings in the head/brain. Electronically Signed: Lincoln Keane MD at 20:43 EDT , ADDENDUM: 03/07/24 0804 IMPRESSION: No metallic foreign body within the head or orbits to preclude MRI. Electronically Signed: Cole Santana MD at 7:57 EDT , Chest X-Ray 03/06/24 20:12 IMPRESSION: No radiographic evidence of acute cardiopulmonary disease. Electronically Signed: Lincoln Keane MD at 20:41 EDT , Head/Neck CTA 03/06/24 21:55 IMPRESSION: Negative CTA Head and Neck. Electronically Signed: Iain Mccullough MD at 23:39 EDT , Brain MRI 03/06/24 23:00 IMPRESSION: 1. Minimal chronic ischemic changes changes of the brain, as described above. Electronically Signed: Gregor Mccormack MD at 10:32 EDT , Active Medications Active Medications Active Medications: Current Medications Generic Name Dose Route Start Last Admin Trade Name Freq PRN Reason Stop Dose Admin Acetaminophen 650 mg 03/06/24 23:00 Acetaminophen 325 Mg Tablet PO Q4H PRN PRN Fever, pain 1-04/07 Al Hydrox/Mg Hydrox/Simethicone 30 ml 03/06/24 23:00 Mag /Aluminum/Simeth Wch Udc 30 Ml Oral.Susp PO Q6H PRN PRN Gastric Burning Albuterol Sulfate 2.5 mg 03/06/24 23:00 Albuterol 2.5 Mg/3 Ml Vial.Neb. INHALATION Q2H PRN PRN Dyspnea, wheezing Amiodarone HCl 200 mg 03/07/24 08:00 03/07/24 09:13 Amiodarone 200 Mg Tablet PO 200 mg BREAKFAST NADER Administration Apixaban 5 mg 03/06/24 23:00 03/07/24 09:10 Apixaban 5 Mg Tablet PO 5 mg BID NADER Administration Aspirin 81 mg 03/07/24 08:00 03/07/24 09:10 Aspirin E.C. 81 Mg Tablet PO 81 mg BREAKFAST NADER Administration Atorvastatin Calcium 80 mg 03/07/24 10:00 03/07/24 09:13 Atorvastatin Calcium 80 Mg Tablet PO 80 mg DAILY NADER Administration Glucagon 1 mg 03/06/24 23:00 Glucagon 1 Mg/Ml Syringe IM X1 PRN HYPOGLYCEMIA Protocol Guaifenesin 20 ml 03/06/24 23:00 Guaifenesin 10 Ml Udc (200mg/10ml) PO Q4H PRN PRN COUGH Hydralazine HCl 5 mg 03/06/24 23:00 Hydralazine 20 Mg/Ml Vial IV 03/07/24 23:00 Q30M PRN maintain BP parameters with HR <60 Dextrose 250 mls @ 0 mls/hr 03/06/24 23:00 Dextrose 10%-Water IV .Q0M PRN HYPOGLYCEMIA Protocol As Directed Insulin Human Lispro 0 unit 03/06/24 23:00 03/07/24 11:30 Insulin Lispro 100 Unit/Ml Insuln.Pen SC Not Given ACHS NADER Protocol Labetalol HCl 10 - 20 mg 03/06/24 23:00 Labetalol (Prefilled) 20 Mg/4 Ml IV 03/07/24 23:00 Q10M PRN PRN maintain BP parameters with HR >/=60 Melatonin 3 mg 03/06/24 23:00 Melatonin 3 Mg Tablet PO QHS PRN PRN INSOMNIA Ondansetron HCl 4 mg 03/06/24 23:00 Ondansetron 4 Mg/2 Ml Vial IV Q8H PRN PRN NAUSEA/VOMITING Pantoprazole Sodium 40 mg 03/07/24 10:00 03/07/24 09:10 Pantoprazole Sodium 40 Mg Tablet PO 40 mg DAILY NADER Administration Prochlorperazine Edisylate 5 mg 03/06/24 23:00 Prochlorperazine 10 Mg/2 Ml Vial IV Q4H PRN PRN Breakthrough Nausea/Vomiting Senna/Docusate Sodium 2 tablet 03/06/24 23:00 Senna/Docusate Sodium 1 Tablet PO BID PRN PRN Constipation Sodium Chloride 10 - 40 ml 03/06/24 23:11 0.9% Saline Lock 10 Ml Syringe IV UD PRN SALINE FLUSH
--- NOTE | 2024-03-07 14:30 | DS.PCM_ITS ---
Providers Date of Admission: 03/06/24 Primary Care Physician: Nuris Hoffman, ALYSA Consultations 03/06/24 23:00 Consult: Tele-Neurology Routine Consulting Provider: [facility] Reason for Consult: Acute Ischemic Stroke/TIA EMERGENT Consult: No MD Notified: Yes Date Notified: 03/07/24 Time Notified: 00:02 Method of Notification: Answering Service Nursing Unit Staff Notify [facility] of Tele-Neurology Consult: Yes Reason For Visit: TIA Diagnosis Discharge Diagnosis (1) TIA (transient ischemic attack): Status: Acute Code(s): G45.9 - Transient cerebral ischemic attack, unspecified Plan Right leg weakness and paresthesia * Stroke workup, including an MRI of the brain was negative. Question whether or not this was a TIA versus some radicular component from his back as he states that he has had this multiple times before. He states that when he does get this he does not have back pain. Though that does not rule out some nerve root impingement/disc herniation. Patient to continue with his current medication that he takes for his paroxysmal atrial fibrillation. Neurology does recommend that he follow-up in 4 to 6 weeks. Chronic conditions * PAF: We will continue patient home apixaban regimen, hold diltiazem temporarily for permissive hypertension but low threshold to give dose if necessary if rate and appropriate. * CAD: Status post CABG HUMPHREY-LAD Maddy-Ramus 12/23/2023, continue aspirin, statin, temporarily holding hypertensive regimen per stroke protocol as noted, not on beta-christina therapy as on diltiazem with PAF history, also not on JASMYN inhibitor/ARB per review. * Hypertension: Will maintain permissive hypertension with as needed agents per stroke protocol. * Hyperlipidemia: Continue home statin regimen. AM FLP. * Diabetes mellitus type II: Hold oral home regimen, nutrition consulted and hemoglobin A1c requested per stroke protocol, maintain on ADA diet, accu checks w/ ISS. * Chronic Kidney Disease Stage III, unclear subtype per GFR trend: Admission BUN/Cr 23/1.87, GFR 39, baseline renal function 1.6-2.1 per prior trending review, repeat BMP in AM. * Obesity: Weight loss and lifestyle changes encouraged. * GERD: We will continuation of PPI. * Gout: We will continue patient on colchicine regimen. DVT prophylaxis: Will continue patient home apixaban regimen. Code: full Medications at Discharge Home Medications apixaban 5 mg tablet (Eliquis) 5 mg PO BID #60 tabs 12/04/23 omega 5-mfb-pip-fish oil 300 mg-1,000 mg capsule (Fish Oil) 2 cap PO BID 12/04/23 aspirin 81 mg tablet,delayed release (Adult Aspirin Regimen) 81 mg PO DAILY 01/19/24 empagliflozin 25 mg tablet (Jardiance) 25 mg PO DAILY 01/19/24 multivitamin 1 tab PO DAILY 01/19/24 pantoprazole 40 mg tablet,delayed release 40 mg PO DAILY 01/19/24 amiodarone 200 mg tablet 200 mg PO DAILY 03/06/24 atorvastatin 80 mg tablet 80 mg PO DAILY 03/06/24 Hospital Course Operations None Procedures 2-D Echocardiogram Summary of Care Provided Minutes Spent on Discharge: 35 Hospital Course: Patient is working as an electrician maintenance at the [employer] where he experienced some right lower extremity weakness and paresthesias. He stumbled and was sent to the first-aid tent where they are concerned about right facial droop. Patient himself denied any right facial droop. Patient underwent stroke workup including an MRI that was negative. Patient is weakness has since resolved. Patient does have risk factors for stroke including paroxysmal atrial fibrillation, however he is anticoagulated on apixaban. I told the patient that I am concerned that this right lower extremity weakness could potentially be coming from his back and he does have recurrent issues that he may need to have some further evaluation of his back. Patient was seen by [facility] who recommend continue with his current treatment and to follow-up with neurology in 4 to 6 weeks. Weight / BMI Weight Weight: 121.4 kg Body Mass Index (BMI) 36.2 ABG / Lab / Microbiology Data 03/07/24 06:37 03/07/24 06:37 Laboratory: Laboratory Results - last 24 hr 03/06/24 20:00: Sodium 139, Potassium 3.9, Chloride 110 H, Carbon Dioxide 24.0, Anion Gap 5, BUN 23 H, Creatinine 1.87 H, Estim Creat Clear Calc 53.09, Est GFR (MDRD) Af Amer 47 L, Est GFR (MDRD) Non-Af 39 L, BUN/Creatinine Ratio 12.3, G lucose 174 H, Calcium 9.1, Magnesium 2.2, Total Bilirubin 0.50, AST 20, ALT 29, Alkaline Phosphatase 100, Troponin I High Sens 14, Total Protein 7.0, Albumin 3.7, Globulin 3.3, Albumin/Globulin Ratio 1.1 03/06/24 20:28: Urine Color Straw, Urine Clarity Clear, Urine pH 6.5, Ur Specific [place] 1.010, Urine Protein 15 H, Urine Glucose (UA) 1000 H, Urine Ketones Negative, Urine Occult Blood Negative, Urine Nitrite Negative, Urine Bilirubin Negative, Urine Urobilinogen Normal, Ur Leukocyte Esterase Negative, Urine RBC 0-5 SEEN, Urine WBC 0-5 SEEN, Ur Squamous Epith Cells 0-5 SEEN, Urine Bacteria 0 SEEN, Urine Mucus 0 SEEN 03/06/24 21:17: WBC 7.5, RBC 4.98, Hgb 14.7, Hct 44.5, MCV 89.4, MCH 29.5, MCHC 33.0, RDW Std Deviation 43.0, RDW Coeff of Ghulam 13.3, Plt Count 201, MPV 9.4, Immature Gran % (Auto) 0.400, Neut % (Auto) 46.9 L, Lymph % (Auto) 38.7, Shannon % (Auto) 7.7, Eos % (Auto) 4.7, Baso % (Auto) 1.6 H, Absolute Neuts (auto) 3.5, Absolute Lymphs (auto) 2.90, Nucleated RBC % 0 03/06/24 23:38: POC Glucose 114 H 03/07/24 05:59: POC Glucose 134 H 03/07/24 06:37: WBC 8.9, RBC 5.52, Hgb 16.0, Hct 48.2, MCV 87.3, MCH 29.0, MCHC 33.2, RDW Std Deviation 41.7, RDW Coeff of Ghulam 13.0, Plt Count 211, MPV 8.9, Immature Gran % (Auto) 0.400, Neut % (Auto) 61.0, Lymph % (Auto) 26.8, Shannon % (Auto) 6.5, Eos % (Auto) 4.1, Baso % (Auto) 1.2 H, Absolute Neuts (auto) 5.4, Absolute Lymphs (auto) 2.40, Nucleated RBC % 0, Sodium 141, Potassium 4.0, C hloride 109 H, Carbon Dioxide 22.0, Anion Gap 10, BUN 19 H, Creatinine 1.72 H, Estim Creat Clear Calc 59.14, Est GFR (MDRD) Af Amer 52 L, Est GFR (MDRD) Non-Af 43 L, BUN/Creatinine Ratio 11.0, Glucose 137 H, Hemoglobin A1c 5.9 H, Calcium 8.8, Total Bilirubin 0.40, AST 15, ALT 24, Alkaline Phosphatase 85, Total Protein 6.1 L, Albumin 3.1 L, Globulin 3.0, Albumin/Globulin Ratio 1.0, T riglycerides 202 H, Cholesterol 110, LDL Cholesterol 41, VLDL Cholesterol 40, H DL Cholesterol 29 L, TSH 1.800 03/07/24 11:06: POC Glucose 132 H Radiography Diagnostic Testing: Radiology Impression Brain CT 03/06/24 20:02 IMPRESSION: No acute findings in the head/brain. Electronically Signed: Lincoln Keane MD at 20:43 EDT , ADDENDUM: 03/07/24 0804 IMPRESSION: No metallic foreign body within the head or orbits to preclude MRI. Electronically Signed: Cole Santana MD at 7:57 EDT , Chest X-Ray 03/06/24 20:12 IMPRESSION: No radiographic evidence of acute cardiopulmonary disease. Electronically Signed: Lincoln Keane MD at 20:41 EDT , Head/Neck CTA 03/06/24 21:55 IMPRESSION: Negative CTA Head and Neck. Electronically Signed: Iain Mccullough MD at 23:39 EDT , Brain MRI 03/06/24 23:00 IMPRESSION: 1. Minimal chronic ischemic changes changes of the brain, as described above. Electronically Signed: Gregor Mccormack MD at 10:32 EDT Reading Location ID and State: [facility] / [place] , Service support , Echocardiogram 03/06/24 23:00 Interpretation Summary Normal LV size. Left ventricular systolic function is normal. The left ventricular ejection fraction is 70 %. Stage 1 diastolic dysfunction. Moderate concentric left ventricular hypertrophy. Bubble contrast study negative for right to left interatrial shunt. Ordering Physician: Goldie Medina Performed By: Cecilia Duque RDCS and Student D/C Instructions Discharge Diet: No restrictions Meaningful Use Info Meaningful Use Meaningful Use Diagnoses (Choose all that apply): None applicable Ischemic Stroke Statin Dosing Therapy Reference: STATIN DOSE THERAPY REFERENCE: * Patients > 75 years receive moderate or high dose statin therapy. * Patients 75 years or YOUNGER should receive HIGH intensity statin dose unless contraindicated. You will be required to document reason for non-treatment if statin daily dose does not meet guidelines. HIGH DOSE STATIN THERAPY DAILY Atorvastatin > than or = to 40 mg Rosuvastatin > than or = to 20 mg Amlodipine + Atorvastatin > than or = to 2.5/40 mg Ezetimibe + Simvastatin 10/80 mg Simvastatin 80mg Discharge Plan Admission Admit Date/Time: 03/06/24 21:50 Primary Reason for Your Visit: Right leg weakness Attending Provider: Edvin Hernandez Primary Care Provider: Nuris Hoffman NP Consulting Providers: Jean Pierre Lynn; Roque Fortune; Kat Hernandez; Sharon Scott; Amarilis Luevano; Corby Ramirez; Viri Gonsalez; Seth Ferreira; Germán Garcia; Payam Self; Vivien Garrett; Cole Mora; Margaret Urbano; Nolan Moe; Emory Breaux; Terence Garland; Stella Kennedy; Landen Sullivan; Tomeka Valencia; Millie Lopez; Goldie Medina Instructions Additional Instructions / Restrictions: You underwent a stroke workup that was normal. You do have a risk for stroke given your history of atrial fibrillation. But given your symptoms, with the right leg weakness, I would be concerned that this could be potentially coming from your back. You should follow-up with neurology in 4 to 6 weeks and they can determine if you need to have further imaging of your back. [facility] [phone]. [facility] [phone]. [facility] [phone]. [facility] [phone]. [facility] [place] [phone] Discharge Orders/Prescriptions Prescriptions: Continued Jardiance 25 mg tablet 25 mg PO DAILY pantoprazole 40 mg tablet,delayed release (DR/EC) 40 mg PO DAILY multivitamin Tablet 1 tab PO DAILY aspirin [Adult Aspirin Regimen] 81 mg tablet,delayed release (DR/EC) 81 mg PO DAILY atorvastatin 80 mg tablet 80 mg PO DAILY amiodarone 200 mg tablet 200 mg PO DAILY omega 8-vuu-tbq-fish oil [Fish Oil] 300-1,000 mg capsule 2 cap PO BID Eliquis 5 mg tablet 5 mg PO BID Qty: 60 0RF Referrals / Follow Up: Nuris Hoffman NP, ENGINEER CONDUCTOR-[employer] [Primary Care Provider] - Within 2 Weeks Disposition Disposition (needs filled in before D/C Order can be placed): Home, Self Care Charges/Coding Visit Charges Inpatient E&M: 70881 Disch Hosp >30min
--- NOTE | 2024-03-07 14:44 | PHA.DC.MR.R ---
Pharmacy [place] Med Reconciliation Pharmacy Service has performed discharge medication reconciliation for this patient. The patient's discharge medication list was reviewed for discrepancies and discrepancies were resolved. Medications at Discharge Home Medications apixaban 5 mg tablet (Eliquis) 5 mg PO BID #60 tabs 12/04/23 omega 0-pnl-szj-fish oil 300 mg-1,000 mg capsule (Fish Oil) 2 cap PO BID 12/04/23 aspirin 81 mg tablet,delayed release (Adult Aspirin Regimen) 81 mg PO DAILY 01/19/24 empagliflozin 25 mg tablet (Jardiance) 25 mg PO DAILY 01/19/24 multivitamin 1 tab PO DAILY 01/19/24 pantoprazole 40 mg tablet,delayed release 40 mg PO DAILY 01/19/24 amiodarone 200 mg tablet 200 mg PO DAILY 03/06/24 atorvastatin 80 mg tablet 80 mg PO DAILY 03/06/24
--- NOTE | 2024-03-07 14:45 | CASEMGMT ---
Patient has order for discharge. RN CM in to discuss needs at discharge. Patient denies needs or help at discharge. Patient had no further questions or concerns.
== END 2024-03-07 14:34 | disposition home or self-care (01) ==
LOC: ED 20:42 → PCU 22:06
PROVIDERS: Admitting Provider Family Medicine; Emergency Provider Emergency Medicine; PCP Registered Nurse
DX: G45.9 Transient cerebral ischemic attack, unspecified (principal); I48.0 Paroxysmal atrial fibrillation; E11.22 Type 2 diabetes mellitus with diabetic chronic kidney disease; N18.30 Chronic kidney disease, stage 3 unspecified; Z79.82 Long term (current) use of aspirin; K21.9 Gastro-esophageal reflux disease without esophagitis; E78.5 Hyperlipidemia, unspecified; I12.9 Hypertensive chronic kidney disease with stage 1 through stage 4 chronic kidney disease, or unspecified chronic kidney disease; R29.898 Other symptoms and signs involving the musculoskeletal system; I25.10 Atherosclerotic heart disease of native coronary artery without angina pectoris; Z79.84 Long term (current) use of oral hypoglycemic drugs; Z79.01 Long term (current) use of anticoagulants; Z79.899 Other long term (current) drug therapy; E66.9 Obesity, unspecified; Z68.36 Body mass index [BMI] 36.0-36.9, adult; M10.9 Gout, unspecified
CPT/HCPCS: 36415; 70450; 70496; 70498; 70551; 71045; 80048; 80053; 80061; 81001; 82962; 83036; 83735; 84443; 84484; 85025; 93005; 93306; 94668; 94762; 96360; 96361; 97802; 99221; 99285; J7030; Q9967; A4216; G0378

== ENCOUNTER → 2024-03-25 | Outpatient (CLI) | payer OTHER, SELFPAY ==
[2024-03-04 08:39] VITALS: BMI 34.0
[2024-03-25 09:38] LABS: PSA,Total- Diagnostic 3.21 ng/mL (0.0-4.0)
== END | disposition home or self-care (01) ==
LOC: LAB 08:52
PROVIDERS: PCP Registered Nurse; Referring Provider Urology; Visit Provider Urology
DX: R97.20 Elevated prostate specific antigen [PSA] (principal)
CPT/HCPCS: 36415; 84153

== ENCOUNTER 2024-03-28 15:15 | Outpatient (RCR) | payer OTHER, SELFPAY ==
[2024-02-04 09:55] VITALS: BMI 34.7
--- NOTE | 2024-03-04 08:07 | CR.ITP_ITS ---
Exercise - Initial Assessment Visit Session #:: 3 Physician Prescribed Exercise Modalities: Treadmill, Rower, Schwinn Airdyne AD-7, SciFit Stepper, SciFit Pro- II Ergometer and SciFit Lateral Quality Assurance Supervisor Chassis Nutrition - Initial Assessment Weight Mgt (Other Care) Height: 6 ft Weight:: 251 lb 5.231 oz BMI: 34.0 BMI (Report if calculated above): 34 Psychosocial - Initial Assess Target Goals Target Goals Referral to Behavioral Health PS - Interventions: No: Referral to Behavioral Health if PHQ-9 score >9:, No: Referral to [facility], No: Referral to Physician if PHQ-9 if score is 5-9: and No: Attend Stress Management Classes Patient Health Questionnaire PHQ-9 Screening 30-Day Re-eval Assessment: 1. Little interest or pleasure in doing things: Not at all 2. Feeling down, depressed, or hopeless: Not at all 3. Trouble falling or staying asleep, or sleeping too much: More than half the days 4. Feeling tired or having little energy: Not at all 5. Poor appetite or overeating: Not at all 6. Feeling bad about yourself -- or that you are a failure or have let yourself or your family down: Not at all 7. Trouble concentrating on things, such as reading the newspaper or watching television: Not at all 8. Moving or speaking so slowly that other people could have noticed. Or the opposite - being so fidgety or restless that you have been moving around a lot more than usual: Not at all 9. Thoughts that you would be better off , or of hurting yourself in some way: Not at all How difficult have these problems made it for you to do your work, take care of things at home, or get along with other people?: Not difficult at all Total Score: 2 Self-Efficacy 6-Item Scale 30-Day Re-eval Assessment: We would like to know how confident you are in doing certain activities. Please select your confidence level for: Fatigue Select Number: 8 Physical Discomfort or Pain Select Number: 10 Emotional Distress Select Number: 10 Other Symptoms or Health Problems Select Number: 7 Different Tasks and Activities Select Number: 9 Medication Select Number: 10 Total Score:: 9 Nutrition Survey Nutrition Survey Instructions Scoring Instructions Exercise - 30-day Assessment Visit Date of Eval: 03/04/24 Session #:: 3 Physician Prescribed Exercise Modalities: Treadmill, Rower, Schwinn Airdyne AD-7, SciFit Stepper, SciFit Pro- II Ergometer and SciFit Lateral Quality Assurance Supervisor Chassis Frequency: 3x/week for 12 weeks [36 sessions] Intensity: 60-80% of age predicted maximum heart rate reserve Duration: 30 - 45 minutes Target Heart Rate:: 94-118 Current RPE:: 11 Maximum Excercise HR:: 96 Resting Blood Pressure: 120/72 Maximum Exercise Blood Pressure: 158/80 EKG Type: NSR with occ PVCs, rare trigeminy Outcomes & Goals Goals:: Verbalizes understanding of THR, RPE & goal METS by session 6, Documents in home exercise log/reports 30 min aerobic 5 day/wk by DC and Demonstrates accurate pulse taking by DC Intervention & Plan Exercise Program Goals: Instruct on personal THR & RPE, Instruct on MET level & personal MET goal, Show patient to take own pulse /validate performance until accurate and Instruct on home exercise 30-day Reassessments 30 day Reassessments:: Progressing Reassessment Notes & Comments:: PT educated on RPE during exercise, pt ve rbalized understanding Physical Activity Home Exercise Physical Activity - Home Exercise: Safe Exercise, Warm-up, Self-monitoring, Cool-Down, Home Exercise > 30 min Daily and Sitting Time <3 hours/daily Outcomes & Goals Outcomes/Goals: Demonstrates correct Warm-up/exercise Cool-Down (S3) if = 2.5 METs, Verbalizes symptoms of exercise intolerance by Session 3 (S3) and Demonstrate safe equipment use (S3) & follows exercise prescrition (6) Intervention & Plan Plan/Intervention: Instruct warm-up & cool-down if exercising at > 2 METs, Instruct on symptoms of exercise intolerance & actions to take, Instruct & monitor on saf and Assess intial functional capacity & safety risk 30-day Reassessments 30 day Reassessments:: Progressing Reassessment Notes & Comments:: Pt able to verbalize symptoms of exercise intolerance and what to do if they occur Exercise - 60-day Assessment Physician Prescribed Exercise Modalities: Treadmill, Rower, Schwinn Airdyne AD-7, SciFit Stepper, SciFit Pro- II Ergometer and SciFit Lateral Quality Assurance Supervisor Chassis Exercise - 90-day Assessment Physician Prescribed Exercise Modalities: Treadmill, Rower, Schwinn Airdyne AD-7, SciFit Stepper, SciFit Pro- II Ergometer and SciFit Lateral [place] Exercise - Final/Discharge Physician Prescribed Exercise Modalities: Treadmill, RenatoerLinda AD-7, SciFit Stepper, SciFit Pro- II Ergometer and SciFit Lateral Quality Assurance Supervisor Chassis Nutrition - 30-Day Assessment Program Goals Nutrition Program Goals Patient has diagnosis of Hyperlipidemia (ICD E78)?: Yes Visit Date of Eval: 03/04/24 Session #:: 3 Cholesterol/Lipids (Other Core Measures) Triglycerides (mg/dL): 173 Total Cholesterol (mg/dL): 144 HDL Cholesterol (mg/dL): 30 Lipid Medication: atorvastatin Determine presence & major risk factors that modify LDL goal: Hypertension or hypertensive medication and Low HDL cholesterol <40 mg/dL* Outcomes/Goals: Pt IDs own risk factors & lifestyle modifications by Session 10, Verbalizes symptoms of angina & response by session 3. and Pt independently manages Intervention/Plan: Advocate for lipid panel cholesterol medication if applicable, Instruct on personal lipid levels & lipid goals/NCEP guidelines and Instruct on cholesterol Referral to dietitian:: No 30-day Reassessments:: Progressing Reassessment Notes & Comments:: Pt compliant with taking statin meds as p rescribed and healthy eating habits Diabetes (Other Core Measures) Diabetes Type: Diagnosis Type II ICD-10 E11 Fasting blood glucose:: 96 Hgb A1C (4.2 -6.3): 6.5 Insulin dependent injection/pump?: No Non-Insulin Dependent?: Yes Do you monitor your blood sugar at home?: Yes Referral to Diabetic Clinic:: Yes Outcomes/Goals:: Able to state symptoms of (low blood sugar, high blood sugar ) Intervention/Plan:: Instruct on (taking blood sugar daily ) and Refer to (diabetes consuling) 30-day Reassessments:: Progressing Reassessment Notes & Comments:: Pt able to verbalize s/s of low blood sugar and importance of BS daily monitoring Weight Mgt (Other Care) Height: 6 ft Weight:: 251 lb 5.231 oz BMI: 34.0 BMI (Report if calculated above): 34 Diagnosis Overweight/Obesity BMI> 30% ICD-10 E66: Yes Diagnosis High BMI/Morbid Obesity BMI> 35% ICD-10 Z68: No Outcomes/Goals: Pt sets, maintains & shows weight loss goal & trend during rehab Intervention/Plan: Instruct on ideal BMI & set weight loss goal w/patient, Assist pt to ID & incorporate diet changes for weight loss by S9, Refer to Structured Weight Loss program as appropriate and Encourage goal of using 250- 300dcal per session for weight loss 30 day Reassessments:: Progressing Reassessment Notes & Comments:: Pt instructed on maintaining healthy BMI and strategies for weight management Healthy Eating Habits Will attend diet classes:: Yes Outcomes/Goals:: Consume diet rich in vegs,fruits,whole grain/high fiber,fish,lean meat and Limit sat/trans fats,cholesterol & added salts & sugars Intervention/Plan:: Assess current eating habits 30-day Reassessments:: Progressing Reassessment Notes & Comments:: Pt attending nutrition education classes and healthy eating habits Education Gave educational materials for:: Signs & symptoms of hypoglycemia, Signs & symptoms of hyperglycemia, Relate diabetes to coronary artery disease and Healthy eating Nutrition - 60-Day Assessment Weight Mgt (Other Care) Height: 6 ft Weight:: 251 lb 5.231 oz BMI: 34.0 BMI (Report if calculated above): 34 Core - 30-Day Assessment Visit Date of Eval: 03/04/24 Session #:: 3 Medication Compliance Preventative Medication(s):: Aspirin, Statin/lipid, Beta christina and Eliquis H/O mental health issues: depression, anxiety, or addiction?: No Doesn?t believe in the benefits of treatment?: No Believes medications are unnecessary or harmful?: No Has a concern about medication side effects?: No Expresses concern over the cost of medications?: No Outcomes/Goals: Verbalizes medications,desired effect & common side effects @ DC, Pt self-reports following medication regimen and Keeps card in wallet w/medications listed by DC Interventions/plans: Instruct on medication effects & side effects, Review medication list w/patient every two weeks and Instruct importance of taking meds as ordered & assist problem solving 30-day Reassessments:: Progressing Reassessment Notes & Comments:: Pt compliant with taking daily medications and aware of medication side effects Tobacco Use Tobacco Use: Non-smoker 30-day Reassessments:: Met Hypertension Hypertension Diagnosis:: Hypertension ICD-10 I10 Resting Blood Pressure:: 120/72 [place] [employer] Hypertension Guidelines Peak Exercise Blood Pressure:: 158/80 Outcomes/Goals: Able to verbalize/achieve optimal blood pressure <130/80 and In corporates diet changes & exercise for blood pressure control by DC Interventions/plan: Instruct on optimal blood pressure, hypertension & medications and Instruct on effects of sodium, alcohol, stress, exercise &hypertension 30 day Reassessments:: Progressing Reassessment Notes & Comments:: Pt compliant with taking daily BP medications and BP under control Tobacco Cessation Referral Smoking Cessation Referral:: No Individual Education/Counseling:: No Education Schedule Given:: No Psychosocial - 30-Day Assess VIsit Date of Eval: 03/04/24 Session #:: 3 History of previous Mental disease:: No History of Emotional Disorders: None Target Goals Target Goals Psychosocial Test Tool Used:: PHQ-9 Questionnaire phq-9 Severity See PHQ-9 Score: 2 Referral to Behavioral Health PS - Interventions: No: Referral to Behavioral Health if PHQ-9 score >9:, No: Referral to [facility], No: Referral to Physician if PHQ-9 if score is 5-9: and No: Attend Stress Management Classes Outcomes/Goals: See list Psychosocial Outcomes/Goals:: ID's personal stressors & 2 strategies to manage stress by discharge Intervention/Plan: See List Interventions/Plan:: Assess stressors,coping strategies & signs of derpression on admission, Instruct/assist pt to develop coping & personal stress Mgt strategies, Refer to Behavioral Health if appropriate, Refer to Physician if appropriate and Instruct patient to recognize signs & symptoms of depression 30-day Reassessments: 30 day Reassessments:: Met Reassessment Notes & Comments:: Pt with spouse and strong support network, able to verbalize stress management strategies Psychosocial - 60-Day Assess Target Goals Target Goals Referral to Behavioral Health PS - Interventions: No: Referral to Behavioral Health if PHQ-9 score >9:, No: Referral to [facility], No: Referral to Physician if PHQ-9 if score is 5-9: and No: Attend Stress Management Classes Outcomes/Goals: See list Psychosocial Outcomes/Goals:: ID's personal stressors & 2 strategies to manage stress by discharge Psychosocial - 90-Day Assess Target Goals Target Goals Referral to Behavioral Health PS - Interventions: No: Referral to Behavioral Health if PHQ-9 score >9:, No: Referral to [facility], No: Referral to Physician if PHQ-9 if score is 5-9: and No: Attend Stress Management Classes Psychosocial - Final Assessmen Target Goals Target Goals Referral to Behavioral Health PS - Interventions: No: Referral to Behavioral Health if PHQ-9 score >9:, No: Referral to [facility], No: Referral to Physician if PHQ-9 if score is 5-9: and No: Attend Stress Management Classes Nutrition - 90-Day Assessment Weight Mgt (Other Care) Height: 6 ft Weight:: 251 lb 5.231 oz BMI: 34.0 BMI (Report if calculated above): 34 Nutrition - Final Assessment Weight Mgt (Other Care) Height: 6 ft Weight:: 251 lb 5.231 oz BMI: 34.0 BMI (Report if calculated above): 34
[2024-03-04 08:24] VITALS: BP 120/72
[2024-03-04 08:39] VITALS: BP 120/72; BMI 34.0
== END 2024-03-28 23:59 ==
LOC: CR 15:15
PROVIDERS: PCP Registered Nurse
DX: Z03.89 Encounter for observation for other suspected diseases and conditions ruled out (principal); Z95.1 Presence of aortocoronary bypass graft
CPT/HCPCS: 93798

== ENCOUNTER 2024-04-27 15:15 | Outpatient (RCR) | payer OTHER, SELFPAY ==
[2024-03-04 08:39] VITALS: BMI 34.0
[2024-03-29 00:23] VITALS: BP 120/72
--- NOTE | 2024-04-05 07:12 | CR.ITP_ITS ---
Exercise - Initial Assessment Physician Prescribed Exercise Modalities: Treadmill, Schwinn Airdyne AD-7 and SciFit Stepper Nutrition - Initial Assessment Weight Mgt (Other Care) Height: 6 ft Weight:: 262 lb BMI: 35.5 Psychosocial - Initial Assess Target Goals Target Goals Referral to Behavioral Health PS - Interventions: Yes: Attend Stress Management Classes Patient Health Questionnaire PHQ-9 Screening 60-Day Re-eval Assessment: 1. Little interest or pleasure in doing things: Not at all 2. Feeling down, depressed, or hopeless: Not at all 3. Trouble falling or staying asleep, or sleeping too much: More than half the days 4. Feeling tired or having little energy: Not at all 5. Poor appetite or overeating: Not at all 6. Feeling bad about yourself -- or that you are a failure or have let yourself or your family down: Not at all 7. Trouble concentrating on things, such as reading the newspaper or watching television: Not at all 8. Moving or speaking so slowly that other people could have noticed. Or the opposite - being so fidgety or restless that you have been moving around a lot more than usual: Not at all 9. Thoughts that you would be better off , or of hurting yourself in some way: Not at all Total Score: 2 Self-Efficacy 6-Item Scale 60-Day Re-eval Assessment: We would like to know how confident you are in doing certain activities. Please select your confidence level for: Fatigue Select Number: 8 Physical Discomfort or Pain Select Number: 10 Emotional Distress Select Number: 10 Other Symptoms or Health Problems Select Number: 7 Different Tasks and Activities Select Number: 9 Medication Select Number: 10 Total Score:: 9 Nutrition Survey Nutrition Survey Instructions Scoring Instructions Exercise - 30-day Assessment Physician Prescribed Exercise Modalities: Treadmill, Schwinn Airdyne AD-7 and SciFit Stepper Exercise - 60-day Assessment Visit Date of Eval: 04/05/24 Session #:: 7 Physician Prescribed Exercise Modalities: Treadmill, Schwinn Airdyne AD-7 and SciFit Stepper Frequency: 3x/week for 12 weeks [36 sessions] Intensity: 60-80% of age predicted maximum heart rate reserve Duration: 30 - 45 minutes Current METSs:: 4.5 Target Heart Rate:: 94-118 Current RPE:: 11-13 Maximum Excercise HR:: 89 Resting Blood Pressure: 142/80 Maximum Exercise Blood Pressure: 192/92 EKG Type: NSR to ST with occas PVC's Outcomes & Goals Goals:: Verbalizes understanding of THR, RPE & goal METS by session 6, Documents in home exercise log/reports 30 min aerobic 5 day/wk by DC, Demonstrates accurate pulse taking by DC and Other additional outcome/goals: see below Intervention & Plan Exercise Program Goals: Instruct on personal THR & RPE, Instruct on MET level & personal MET goal, Show patient to take own pulse /validate performance until accurate, Instruct on home exercise and Other additional plan/int 30-day Reassessments 30 day Reassessments:: Progressing Reassessment Notes & Comments:: Pt encouraged to walk at home on off days Physical Activity Home Exercise Physical Activity - Home Exercise: Safe Exercise, Warm-up, Self-monitoring, Cool-Down, Home Exercise > 30 min Daily and Sitting Time <3 hours/daily Outcomes & Goals Outcomes/Goals: Demonstrates correct Warm-up/exercise Cool-Down (S3) if = 2.5 METs, Verbalizes symptoms of exercise intolerance by Session 3 (S3), Demonstrate safe equipment use (S3) & follows exercise prescrition (6) and Other: See below Intervention & Plan Plan/Intervention: Instruct warm-up & cool-down if exercising at > 2 METs, Instruct on symptoms of exercise intolerance & actions to take, Instruct & monitor on saf, Assess intial functional capacity & safety risk and Other See below 30-day Reassessments 30 day Reassessments:: Progressing Reassessment Notes & Comments:: proper cool down demonstrated and pt shows understanding Exercise - 90-day Assessment Physician Prescribed Exercise Modalities: Treadmill, Schwinn Airdyne AD-7 and SciFit Stepper Exercise - Final/Discharge Physician Prescribed Exercise Modalities: Treadmill, Schwinn Airdyne AD-7 and SciFit Stepper Nutrition - 30-Day Assessment Weight Mgt (Other Care) Height: 6 ft Weight:: 262 lb BMI: 35.5 Nutrition - 60-Day Assessment Program Goals Nutrition Program Goals Patient has diagnosis of Hyperlipidemia (ICD E78)?: Yes Visit Date of Eval: 04/05/24 Session #:: 7 Cholesterol/Lipids (Other Core Measures) Determine presence & major risk factors that modify LDL goal: Hypertension or hypertensive medication, Low HDL cholesterol <40 mg/dL*, Family history of premature CHD in Male < 55 years: female <65 yearsFa and Age men > 45 years; women >/= 55 years Outcomes/Goals: Pt IDs own risk factors & lifestyle modifications by Session 10, Verbalizes symptoms of angina & response by session 3., Pt independently manages and Other Additional Outcomes/Goals: Intervention/Plan: Advocate for lipid panel cholesterol medication if applicable, Instruct on personal lipid levels & lipid goals/NCEP guidelines, Instruct on cholesterol and Other additional plan/int 30-day Reassessments:: Progressing Reassessment Notes & Comments:: pt is scheduled to attend nutrition class Diabetes (Other Core Measures) Diabetes Type: Diagnosis Type II ICD-10 E11 Hgb A1C (4.2 -6.3): 6.5 Insulin dependent injection/pump?: No Non-Insulin Dependent?: Yes Do you monitor your blood sugar at home?: Yes Referral to Diabetic Clinic:: Yes Outcomes/Goals:: Able to state symptoms of, Able to state, Able to state and Other additional Intervention/Plan:: Instruct on, Refer to, Instruct on and Other 30-day Reassessments:: Progressing Reassessment Notes & Comments:: pt is able to verbalize s/s of low blood sugar Weight Mgt (Other Care) Height: 6 ft Weight:: 262 lb BMI: 35.5 Diagnosis Overweight/Obesity BMI> 30% ICD-10 E66: Yes Diagnosis High BMI/Morbid Obesity BMI> 35% ICD-10 Z68: Yes Outcomes/Goals: Pt sets, maintains & shows weight loss goal & trend during rehab and Other additional outcomes/goals Intervention/Plan: Instruct on ideal BMI & set weight loss goal w/patient, Assist pt to ID & incorporate diet changes for weight loss by S9, Refer to Structured Weight Loss program as appropriate, Encourage goal of using 250- 300dcal per session for weight loss and Other additional plan/interventions 30 day Reassessments:: Progressing Reassessment Notes & Comments:: pt is scheduled to attend nutrition class Healthy Eating Habits Will attend diet classes:: Yes Outcomes/Goals:: Consume diet rich in vegs,fruits,whole grain/high fiber,fish ,lean meat, Limit sat/trans fats,cholesterol & added salts & sugars and Other additional outcome/goals: Intervention/Plan:: Assess current eating habits and Other Additional pl an/interventions 30-day Reassessments:: Progressing Reassessment Notes & Comments:: pt is scheduled to attend nutrition class Education Gave educational materials for:: Signs & symptoms of hypoglycemia, Signs & symptoms of hyperglycemia, Relate diabetes to coronary artery disease and Healthy eating Core - 60-Day Assessment Medication Compliance Preventative Medication(s):: Aspirin, Statin/lipid, Beta christina and Eliquis H/O mental health issues: depression, anxiety, or addiction?: No Doesn?t believe in the benefits of treatment?: No Believes medications are unnecessary or harmful?: No Has a concern about medication side effects?: No Expresses concern over the cost of medications?: No Outcomes/Goals: Verbalizes medications,desired effect & common side effects @ DC, Pt self-reports following medication regimen, Keeps card in wallet w/medications listed by DC and Other additional outcome/goals: Interventions/plans: Instruct on medication effects & side effects, Review medication list w/patient every two weeks, Instruct importance of taking meds as ordered & assist problem solving and Other additional 30-day Reassessments:: Progressing Reassessment Notes & Comments:: pt is taking meds as prescribed Tobacco Use Tobacco Use: Non-smoker Hypertension Hypertension Diagnosis:: Hypertension ICD-10 I10 Resting Blood Pressure:: 142/80 [place] [employer] Hypertension Guidelines Peak Exercise Blood Pressure:: 192/92 Outcomes/Goals: Able to verbalize/achieve optimal blood pressure <130/80, Incorporates diet changes & exercise for blood pressure control by DC and Other additional outcomes/goals Interventions/plan: Instruct on optimal blood pressure, hypertension & medications, Instruct on effects of sodium, alcohol, stress, exercise &hypertension and Other additional plan/interventions 30 day Reassessments:: Progressing Reassessment Notes & Comments:: will continue to monitor bp's and report to physician if necessary. Tobacco Cessation Referral Smoking Cessation Referral:: No Individual Education/Counseling:: No Education Schedule Given:: Yes Psychosocial - 30-Day Assess Target Goals Target Goals Referral to Behavioral Health PS - Interventions: Yes: Attend Stress Management Classes Outcomes/Goals: See list Psychosocial Outcomes/Goals:: ID's personal stressors & 2 strategies to manage stress by discharge and Other Additional outcome/goals: Psychosocial - 60-Day Assess VIsit Date of Eval: 04/05/24 Session #:: 7 History of previous Mental disease:: No Target Goals Target Goals Psychosocial Test Tool Used:: [employer] QOL Cardiac and PHQ-9 Questionnaire phq-9 Severity Referral to Behavioral Health PS - Interventions: Yes: Attend Stress Management Classes Outcomes/Goals: See list Psychosocial Outcomes/Goals:: ID's personal stressors & 2 strategies to manage stress by discharge and Other Additional outcome/goals: Intervention/Plan: See List Interventions/Plan:: Assess stressors,coping strategies & signs of derpression on admission, Instruct/assist pt to develop coping & personal stress Mgt strategies, Refer to Behavioral Health if appropriate, Refer to Physician if appropriate, Instruct patient to recognize signs & symptoms of depression, Instruct patient to recog and Other additional plan/intervention 30-day Reassessments: 30 day Reassessments:: Met Psychosocial - 90-Day Assess Target Goals Target Goals Referral to Behavioral Health PS - Interventions: Yes: Attend Stress Management Classes Psychosocial - Final Assessmen Target Goals Target Goals Referral to Behavioral Health PS - Interventions: Yes: Attend Stress Management Classes Nutrition - 90-Day Assessment Weight Mgt (Other Care) Height: 6 ft Weight:: 262 lb BMI: 35.5 Nutrition - Final Assessment Weight Mgt (Other Care) Height: 6 ft Weight:: 262 lb BMI: 35.5
[2024-04-05 07:25] VITALS: BP 142/80; BMI 35.5
== END 2024-04-28 23:59 ==
LOC: CR 15:15
PROVIDERS: PCP Registered Nurse
DX: I25.10 Atherosclerotic heart disease of native coronary artery without angina pectoris (principal); Z95.1 Presence of aortocoronary bypass graft
CPT/HCPCS: 93798

== ENCOUNTER 2024-04-29 04:57 | Outpatient (RCR) | payer OTHER, SELFPAY ==
[2024-04-05 07:25] VITALS: BMI 35.5
[2024-04-29 00:39] VITALS: BP 120/72; BP 142/80
--- NOTE | 2024-05-04 07:01 | CR.ITP_ITS ---
Exercise - Initial Assessment Physician Prescribed Exercise Modalities: Treadmill, Schwinn Airdyne AD-7 and SciFit Stepper Nutrition - Initial Assessment Weight Mgt (Other Care) Height: 6 ft Weight:: 267 lb 8 oz BMI: 36.3 Psychosocial - Initial Assess Target Goals Target Goals Referral to Behavioral Health PS - Interventions: Yes: Attend Stress Management Classes Patient Health Questionnaire PHQ-9 Screening 90-Day Re-eval Assessment: 1. Little interest or pleasure in doing things: Not at all 2. Feeling down, depressed, or hopeless: Not at all 3. Trouble falling or staying asleep, or sleeping too much: More than half the days 4. Feeling tired or having little energy: Not at all 5. Poor appetite or overeating: Not at all 6. Feeling bad about yourself -- or that you are a failure or have let yourself or your family down: Not at all 7. Trouble concentrating on things, such as reading the newspaper or watching television: Not at all 8. Moving or speaking so slowly that other people could have noticed. Or the opposite - being so fidgety or restless that you have been moving around a lot more than usual: Not at all 9. Thoughts that you would be better off , or of hurting yourself in some way: Not at all How difficult have these problems made it for you to do your work, take care of things at home, or get along with other people?: Not difficult at all Total Score: 2 Self-Efficacy 6-Item Scale 90-Day Re-eval Assessment: We would like to know how confident you are in doing certain activities. Please select your confidence level for: Fatigue Select Number: 8 Physical Discomfort or Pain Select Number: 10 Emotional Distress Select Number: 10 Other Symptoms or Health Problems Select Number: 7 Different Tasks and Activities Select Number: 9 Medication Select Number: 10 Total Score:: 9 Nutrition Survey Nutrition Survey Instructions Scoring Instructions Exercise - 30-day Assessment Physician Prescribed Exercise Modalities: Treadmill, Schwinn Airdyne AD-7 and SciFit Stepper Exercise - 60-day Assessment Physician Prescribed Exercise Modalities: Treadmill, Schwinn Airdyne AD-7 and SciFit Stepper Exercise - 90-day Assessment Visit Date of Eval: 05/04/24 Session #:: 12 Physician Prescribed Exercise Modalities: Treadmill, Schwinn Airdyne AD-7 and SciFit Stepper Frequency: 3x/week for 12 weeks [36 sessions] Intensity: 60-80% of age predicted maximum heart rate reserve Duration: 30 - 45 minutes Current METSs:: 5 Target Heart Rate:: 94-118 Current RPE:: 11-13 Maximum Excercise HR:: 94-126 Resting Blood Pressure: 130/76 Maximum Exercise Blood Pressure: 152/84 EKG Type: NSR with rare PAC Outcomes & Goals Goals:: Verbalizes understanding of THR, RPE & goal METS by session 6, Documents in home exercise log/reports 30 min aerobic 5 day/wk by DC, Demonstrates accurate pulse taking by DC and Other additional outcome/goals: see below Intervention & Plan Exercise Program Goals: Instruct on personal THR & RPE, Instruct on MET level & personal MET goal, Show patient to take own pulse /validate performance until accurate, Instruct on home exercise and Other additional plan/int 30-day Reassessments 30 day Reassessments:: Progressing Reassessment Notes & Comments:: Pt instructed to walk at home on days not in rehab. Encouraged to log his activity. Physical Activity Home Exercise Physical Activity - Home Exercise: Safe Exercise, Warm-up, Self-monitoring, Cool-Down, Home Exercise > 30 min Daily and Sitting Time <3 hours/daily Outcomes & Goals Outcomes/Goals: Demonstrates correct Warm-up/exercise Cool-Down (S3) if = 2.5 METs, Verbalizes symptoms of exercise intolerance by Session 3 (S3), Demonstrate safe equipment use (S3) & follows exercise prescrition (6) and Other: See below Intervention & Plan Plan/Intervention: Instruct warm-up & cool-down if exercising at > 2 METs, Instruct on symptoms of exercise intolerance & actions to take, Instruct & monitor on saf, Assess intial functional capacity & safety risk and Other See below 30-day Reassessments 30 day Reassessments:: Progressing Reassessment Notes & Comments:: Safe exercise discussed. Pt demonstrates understanding. Exercise - Final/Discharge Physician Prescribed Exercise Modalities: Treadmill, Schwinn Airdyne AD-7 and SciFit Stepper Nutrition - 30-Day Assessment Weight Mgt (Other Care) Height: 6 ft Weight:: 267 lb 8 oz BMI: 36.3 Nutrition - 60-Day Assessment Weight Mgt (Other Care) Height: 6 ft Weight:: 267 lb 8 oz BMI: 36.3 Core - 30-Day Assessment Hypertension [place] [employer] Hypertension Guidelines Reassessment Notes & Comments:: Benefits of a low sodium diet discussed with pt. Pt demonstrated understanding. Core - Final Assessment Hypertension [place] [employer] Hypertension Guidelines Reassessment Notes & Comments:: Benefits of a low sodium diet discussed with pt. Pt demonstrated understanding. Core - 90 Day Assessment Visit Date of Eval: 05/04/24 Session #:: 12 Medication Compliance Preventative Medication(s):: Aspirin, Statin/lipid, Beta christina and Eliquis H/O mental health issues: depression, anxiety, or addiction?: No Doesn?t believe in the benefits of treatment?: No Believes medications are unnecessary or harmful?: No Has a concern about medication side effects?: No Expresses concern over the cost of medications?: No Outcomes/Goals: Verbalizes medications,desired effect & common side effects @ DC, Pt self-reports following medication regimen, Keeps card in wallet w/medications listed by DC and Other additional outcome/goals: Interventions/plans: Instruct on medication effects & side effects, Review medication list w/patient every two weeks, Instruct importance of taking meds as ordered & assist problem solving and Other additional 30-day Reassessments:: Met Reassessment Notes & Comments:: Pt is taking his meds as prescribed. Tobacco Use Tobacco Use: Non-smoker Hypertension Hypertension Diagnosis:: Hypertension ICD-10 I10 Resting Blood Pressure:: 130/76 [place] [employer] Hypertension Guidelines Peak Exercise Blood Pressure:: 152/84 Outcomes/Goals: Able to verbalize/achieve optimal blood pressure <130/80, Incorporates diet changes & exercise for blood pressure control by DC and Other additional outcomes/goals Interventions/plan: Instruct on optimal blood pressure, hypertension & medications, Instruct on effects of sodium, alcohol, stress, exercise &hypertension and Other additional plan/interventions 30 day Reassessments:: Progressing Reassessment Notes & Comments:: Benefits of a low sodium diet discussed with pt. Pt demonstrated understanding. Tobacco Cessation Referral Smoking Cessation Referral:: No Individual Education/Counseling:: No Education Schedule Given:: Yes Psychosocial - 30-Day Assess Target Goals Target Goals Referral to Behavioral Health PS - Interventions: Yes: Attend Stress Management Classes Psychosocial - 60-Day Assess Target Goals Target Goals Referral to Behavioral Health PS - Interventions: Yes: Attend Stress Management Classes Psychosocial - 90-Day Assess VIsit Date of Eval: 05/04/24 Session #:: 12 History of previous Mental disease:: No Target Goals Target Goals Psychosocial Test Tool Used:: [employer] QOL Cardiac and PHQ-9 Questionnaire phq-9 Severity Referral to Behavioral Health PS - Interventions: Yes: Attend Stress Management Classes Outcomes/Goals: See list Psychosocial Outcomes/Goals:: ID's personal stressors & 2 strategies to manage stress by discharge and Other Additional outcome/goals: Intervention/Plan: See List Interventions/Plan:: Assess stressors,coping strategies & signs of derpression on admission, Instruct/assist pt to develop coping & personal stress Mgt strategies, Refer to Behavioral Health if appropriate, Refer to Physician if appropriate, Instruct patient to recognize signs & symptoms of depression, Instruct patient to recog and Other additional plan/intervention 30-day Reassessments: 30 day Reassessments:: Met Reassessment Notes & Comments:: Pt denies any psychosocial issues. Psychosocial - Final Assessmen Target Goals Target Goals Referral to Behavioral Health PS - Interventions: Yes: Attend Stress Management Classes Nutrition - 90-Day Assessment Program Goals Nutrition Program Goals Patient has diagnosis of Hyperlipidemia (ICD E78)?: Yes Visit Date of Eval: 05/04/24 Session #:: 12 Cholesterol/Lipids (Other Core Measures) Determine presence & major risk factors that modify LDL goal: Hypertension or hypertensive medication, Low HDL cholesterol <40 mg/dL*, Family history of premature CHD in Male < 55 years: female <65 yearsFa and Age men > 45 years; women >/= 55 years Outcomes/Goals: Pt IDs own risk factors & lifestyle modifications by Session 10, Verbalizes symptoms of angina & response by session 3., Pt independently manages and Other Additional Outcomes/Goals: Intervention/Plan: Advocate for lipid panel cholesterol medication if applicable, Instruct on personal lipid levels & lipid goals/NCEP guidelines, Instruct on cholesterol and Other additional plan/int 30-day Reassessments:: Met Reassessment Notes & Comments:: Risk factors explained and ways to minimized risk factors. Pt demonstrates understanding. Diabetes (Other Core Measures) Diabetes Type: Diagnosis Type II ICD-10 E11 Insulin dependent injection/pump?: No Non-Insulin Dependent?: Yes Do you monitor your blood sugar at home?: Yes Referral to Diabetic Clinic:: Yes 30-day Reassessments:: Met Reassessment Notes & Comments:: Pt's A1C was 6.5 Weight Mgt (Other Care) Height: 6 ft Weight:: 267 lb 8 oz BMI: 36.3 Diagnosis Overweight/Obesity BMI> 30% ICD-10 E66: Yes Diagnosis High BMI/Morbid Obesity BMI> 35% ICD-10 Z68: Yes Outcomes/Goals: Pt sets, maintains & shows weight loss goal & trend during rehab and Other additional outcomes/goals Intervention/Plan: Instruct on ideal BMI & set weight loss goal w/patient, Assist pt to ID & incorporate diet changes for weight loss by S9, Refer to Structured Weight Loss program as appropriate, Encourage goal of using 250-3 00dcal per session for weight loss and Other additional plan/interventions 30 day Reassessments:: Progressing Reassessment Notes & Comments:: Low sodium diet encouraged. Pt recently had a 5 lb weight gain. Pt is to reweight at next session. Physician will be notified if necessary. Healthy Eating Habits Will attend diet classes:: Yes Outcomes/Goals:: Consume diet rich in vegs,fruits,whole grain/high fiber,fish,lean meat, Limit sat/trans fats,cholesterol & added salts & sugars and Other additional outcome/goals: Intervention/Plan:: Assess current eating habits and Other Additional plan/interventions 30-day Reassessments:: Met Reassessment Notes & Comments:: Pt has attended nutrition class Education Gave educational materials for:: Signs & symptoms of hypoglycemia, Signs & symptoms of hyperglycemia, Relate diabetes to coronary artery disease and Healthy eating Nutrition - Final Assessment Weight Mgt (Other Care) Height: 6 ft Weight:: 267 lb 8 oz BMI: 36.3
[2024-05-04 07:17] VITALS: BP 130/76; BMI 36.3
== END 2024-05-28 23:59 ==
LOC: CR 04:57
PROVIDERS: PCP Registered Nurse
DX: Z95.1 Presence of aortocoronary bypass graft (principal); I25.10 Atherosclerotic heart disease of native coronary artery without angina pectoris
CPT/HCPCS: 93798

== ENCOUNTER 2024-05-05 17:10 | Emergency (ER) | payer OTHER, SELFPAY ==
[2024-05-04 07:17] VITALS: BMI 36.3
[2024-05-05 17:11] VITALS: BP 180/97; PULSE 56; RESP 18; TEMP 35.5; O2SAT 99; BMI 36.1
[2024-05-05 18:17] LABS: Absolute Lymphocyte Count 2.35 X10^3/uL (0.83-4.51); Absolute Neutrophil Count 4.4 X10^3/uL (2.0-7.7); Basophil% 1.3 % (0-1); Eosinophil# 0.24 X10^3/uL; Eosinophils% 3.2 % (0-5); Hematocrit 53.2 % (40-54); Hemoglobin 17.9 g/dL (13.0-16.5); Lymphocyte # 2.35 X10^3/ul (0.83-4.51); Lymphocyte % 30.9 % (19-41); Mean Corp Hgb Conc 33.6 g/dL (32-36); Mean Corpuscular Hgb 29.3 pg (27.0-32.0); Mean Corpuscular Volume 87.2 fL (80-94); Mean Platelet Vol. 9.4 fl (6.2-12.0); Monocyte# 0.54 X10^3/uL; Monocyte% 7.1 % (0-10); NRBC Flagged by Analyzer 0 % (0-5); Neutrophil # 4.35 X10^3/uL (2.7-7.7); Neutrophil % 57.2 % (47-70); Platelet Count 236 K/mm3 (150-450); RBC Distribution Width CV 13.4 % (11.6-14.6); RBC Distribution Width SD 42.5 fl (35.1-43.9); White Blood Count 7.6 K/mm3 (4.4-11.0)
[2024-05-05 18:27] LABS: Anion Gap 4 (5-15); BUN 26 mg/dL (7-18); BUN/Creat Ratio 13.2 RATIO (10-20); Chloride 112 mmol/L (98-107); Creatinine, Serum 1.97 mg/dL (0.70-1.30); EST Glomerular Filtration Rate 37 mL/min (>60); Est Glom Filt Rate - Afr Amer 44 mL/min (>60); Estimated Creatinine Clearance 51.48 ml/min; Glucose 140 mg/dL (74-106); Sodium Level 141 mmol/L (136-145); Troponin-I HS 12 pg/mL (3.0-78.0)
[2024-05-05 18:51] VITALS: BP 124/79; PULSE 55; RESP 14
[2024-05-05 19:34] VITALS: BP 144/96; PULSE 56; RESP 16; TEMP 36.6; O2SAT 97
== END 2024-05-05 19:37 | disposition home or self-care (01) ==
PROVIDERS: Emergency Provider Emergency Medicine; PCP Registered Nurse; Visit Provider Emergency Medicine
DX: I12.9 Hypertensive chronic kidney disease with stage 1 through stage 4 chronic kidney disease, or unspecified chronic kidney disease (principal); I48.0 Paroxysmal atrial fibrillation; E11.22 Type 2 diabetes mellitus with diabetic chronic kidney disease; N18.30 Chronic kidney disease, stage 3 unspecified; I25.10 Atherosclerotic heart disease of native coronary artery without angina pectoris; E78.5 Hyperlipidemia, unspecified; Z79.01 Long term (current) use of anticoagulants; Z79.82 Long term (current) use of aspirin; Z79.84 Long term (current) use of oral hypoglycemic drugs; Z79.899 Other long term (current) drug therapy
CPT/HCPCS: 71046; 80048; 84484; 85025; 93005; 99284; J7040; A4216

== ENCOUNTER 2024-06-06 15:25 | Observation (INO) | payer OTHER, SELFPAY ==
[2024-06-06] VITALS (7 sets, daily range): BP systolic 141–166; BP diastolic 80–99; PULSE 60–81; RESP 16–18; TEMP 35.7–36.8; O2SAT 92–95; BMI 35.1; BMI 35.8
--- NOTE | 2024-06-06 16:00 | ED.VIS.DYS ---
HPI History of Present Illness Chief Complaint: Shortness of Breath Informant: patient Onset/Context/Timing Onset: Days (4) Context: gradual Timing: Continuous Quality: Positive for Dyspnea on exertion Worsened by: Exertion Relieved by: Nothing Associated Symptoms cough and sore throat; Negative for rhinorrhea, post nasal drip, ear pain, fever, chills, sweats, clear sputum, white sputum, yellow sputum or green sputum Chest Pain: Positive for None Narrative Narrative: Patient presents with shortness of breath that has been getting worse over the last 4 days. Patient states it is gradually worse. Patient states his breathing is worse with any exertion. Patient states nothing makes it better. Patient admits to a mild cough. Patient denies any sputum production. Patient denies any fevers or chills. Patient denies any chest pain. Patient states he had a recent cardiac ablation 4 days ago and his shortness of breath began shortly after that. Patient denies any nausea or vomiting. Patient denies any rhinorrhea or ear pain. Patient states he did have a sore throat after the procedure but states he was intubated for the procedure and this has cleared up. PE Risk Factors: Positive for Recent surgery; Negative for Cancer, OCP + Smoking + > 35, Prior DVT or PE, Recent immobilization or Recent travel [facility] Medical History (Updated 06/06/24 @ 19:01 by Wanda Hoffman) Kidney stones Kidney disease GERD (gastroesophageal reflux disease) Non-smoker Atrial fibrillation Gout Obesity CKD (chronic kidney disease), stage III Coronary artery disease Hyperlipidemia Diabetes mellitus Hypertension Paroxysmal atrial fibrillation Home Medications ?Medication ?Instructions ?Recorded ?Last Taken ?Type apixaban 5 mg tablet (Eliquis) 5 mg PO BID #60 tabs 12/04/23 Unknown Rx omega 6-pro-rps-fish oil 300 2 cap PO BID 12/04/23 Unknown History mg-1,000 mg capsule (Fish Oil) aspirin 81 mg tablet,delayed 81 mg PO DAILY 01/19/24 Unknown History release (Adult Aspirin Regimen) empagliflozin 25 mg tablet 25 mg PO DAILY 01/19/24 Unknown History (Jardiance) multivitamin 1 tab PO DAILY 01/19/24 Unknown History pantoprazole 40 mg tablet,delayed 40 mg PO Q12H 01/19/24 Unknown History release amiodarone 200 mg tablet 200 mg PO DAILY 03/06/24 Unknown History atorvastatin 80 mg tablet 80 mg PO DAILY 03/06/24 Unknown History Allergy/AdvReac Type Severity Reaction Status Date / Time metformin AdvReac Nausea/Vom/ Verified 06/06/24 19:03 Diarrhea Family History (Updated 03/06/24 @ 22:[address] Goldie Medina MD) Mother CVA (cerebral vascular accident) Hypertension HLD (hyperlipidemia) Father HLD (hyperlipidemia) Myocardial infarction Hypertension Heart disease CAD (coronary artery disease) Surgical History S/P hernia repair Hx of CABG Social History household members: spouse housing: house Smoking Status: Never smoker alcohol intake: never substance use type: does not use ROS ROS ED Constitutional Constitutional ED: Denies chills or fever(s) Eyes Eyes: Denies blurry vision or change in vision ENT ENT ED: Denies rhinorrhea or sore throat Cardiovascular Cardiovascular: Denies chest pain or palpitations Respiratory/Chest Respiratory/Chest: Reports cough and dyspnea Gastrointestinal Gastrointestinal: Denies nausea or vomiting Genitourinary Genitourinary ED: Denies dysuria or hematuria Musculoskeletal Musculoskeletal: Denies back pain or neck pain Integumentary Denies abscess or rash Neurologic Neurologic: Reports headache(s); Denies weakness Allergic/Immunologic Allergic/Immunologic ED: Denies mouth swelling or urticaria EXAM Physical Exam Const Vital Signs: 06/06/24 15:26 06/06/24 15:32 06/06/24 17:25 Temperature 97.7 F L Temperature Source Oral Pulse Rate 81 67 Respiratory Rate 18 18 Respiratory Effort Short of Breath Respiratory Depth Normal Respiratory Pattern Normal Blood Pressure 166/99 H 141/80 H Blood Pressure Mean 121 100 Pulse Ox 94 95 Oxygen Delivery Method Room Air Room Air Room Air 06/06/24 18:47 Temperature Temperature Source Pulse Rate 65 Respiratory Rate 18 Respiratory Effort Respiratory Depth Respiratory Pattern Blood Pressure 157/88 H Blood Pressure Mean 111 Pulse Ox 92 Oxygen Delivery Method Room Air Positive well nourished and well developed General Appearance ED: well developed and NAD HEENT Reports moist mucous membranes Neck supple and no JVD Resp normal respiratory effort and clear to auscultation bilaterally Cardio regular rate and regular rhythm GI non-tender and non-distended Palpation: soft Extremity normal to inspection General Extremety ED: Negative for edema or tenderness General Extremity: Negative for edema Neuro oriented x3, CN's II-XII intact bilaterally and no sensory deficits noted [place] Coma Scale: document GCS findings Spontaneous Obeys Commands Oriented 15 Sensorium / Orientation: alert Speech: speech normal Motor Exam: strength 5/5 throughout Psych mental status grossly normal MDM MDM MDM Narrative Medical decision making narrative: Differential diagnosis includes cardiac dysrhythmia, cardiac ischemia, pneumonia, pneumothorax, electrolyte abnormality, pulmonary embolism, and anxiety. EKG will be obtained to assess for cardiac dysrhythmia and cardiac ischemia. CBC will be obtained to assess for leukocytosis and anemia. Basic metabolic profile will be obtained to assess for electrolyte abnormality and renal function. High-sensitivity troponin will be obtained to assess for cardiac ischemia. D-dimer will be obtained to assess for pulmonary embolism. If the D-dimer is negative, chest x-ray will be obtained to assess for pneumonia and pneumothorax. If the D-dimer is positive, CT of the chest will be obtained to assess for pulmonary embolism, pneumonia, pneumothorax. Lab Data Attestation: I reviewed the patient's lab results. Lab results narrative: CBC was reviewed. Hemoglobin was slightly elevated at 18.6. The remainder is within normal limits. Basic metabolic profile was reviewed. BUN was 28 and creatinine was 2.24. These are consistent with previous results. PT was INR and PTT were reviewed. Pro time was 15.0 and INR is 1.2. PTT was normal at 30.8. D-dimer was reviewed and was normal at 0.27. Initial high-sensitivity troponin was reviewed and was slightly elevated at 224. 2-hour repeat high-sensitivity troponin was reviewed and was unchanged at 224. Labs: Laboratory Results - last 24 hr 06/06/24 06/06/24 15:40 17:35 WBC 9.9 RBC 6.14 Hgb 18.6 H* Hct 53.3 MCV 86.8 MCH 30.3 MCHC 34.9 RDW Std Deviation 42.3 RDW Coeff of Ghulam 13.5 Plt Count 269 MPV 9.3 Immature Gran % (Auto) 0.500 Neut % (Auto) 64.0 Lymph % (Auto) 24.4 [place] % (Auto) 7.7 Eos % (Auto) 2.3 Baso % (Auto) 1.1 H Absolute Neuts (auto) 6.3 Absolute Lymphs (auto) 2.41 Nucleated RBC % 0 Diff Path Review May foll Platelet Estimate ADEQUATE RBC Morphology NORM C+C PT 15.0 H INR 1.2 APTT 30.8 D-Dimer Quant (PE/DVT) 0.27 Sodium 141 Potassium 4.0 Chloride 109 H Carbon Dioxide 23.0 Anion Gap 9 BUN 28 H Creatinine 2.24 H Estim Creat Clear Calc 44.66 Est GFR (MDRD) Af Amer 38 L Est GFR (MDRD) Non-Af 32 L BUN/Creatinine Ratio 12.5 Glucose 225 H Hemoglobin A1c 6.6 H Calcium 9.7 Troponin I High Sens 224 H* 224 H* Radiography Chest X-Ray - ED: 2 View, Read by ED Physician, Read by Radiologist and No Acute Disease Diagnostic Testing: Clinical Impression(s) from Imaging Studies Chest X-Ray 06/06/24 17:30 IMPRESSION: Right lower lobe subsegmental atelectasis Electronically Signed: Jeff Stuart MD at 19:34 EST , PA and lateral chest x-ray was obtained. There are 2 views. On my independent interpretation, lung tate show subsegmental atelectasis in the right lower lobe. There is some elevation of the right hemidiaphragm. There is normal cardiac silhouette. Bony thorax is normal. There is no acute process noted. Radiologist also interpreted the x-ray and agrees. EKG Initial EKG: Interpretation: Sinus Rhythm (76) and RBBB (Incomplete) Comments: EKG was obtained. On my independent interpretation, it showed a normal sinus rhythm with a rate of 76. OK interval, QRS interval, and QTc intervals were all normal. [place] was normal. There is an incomplete right bundle branch block. There are no acute ST or T wave changes. Prior EKG tracings: available for review Prior: Unchanged (05/05/2024) Treatment and Re-Evaluation :: Patient was given aspirin here. The troponin could be elevated from his recent cardiac ablation. However since it is unchanged in 2 hours, is unclear if this is trending up or down. Therefore, I recommended admission to the hospital for further evaluation. Patient was agreeable with this. Case was discussed with the hospitalist. He will admit the patient for observation. Patient understood and was agreeable with the plan. All questions were answered. Discharge Plan Dx/Rx/DC Orders Clinical Impression: Dyspnea, Elevated troponin, Elevated blood pressure reading Disposition Disposition: Acute Care Hospital [facility]
--- NOTE | 2024-06-06 16:09 | EKG12_ITS ---
Test Reason : SOB Blood Pressure : */* mmHG Vent. Rate : 76 BPM Atrial Rate : 76 BPM P-R Int : 168 ms QRS Dur : 104 ms QT Int : 386 ms P-R-T Axes : 40 89 53 degrees QTcB Int : 434 ms Normal sinus rhythm Incomplete right bundle branch block Borderline ECG Confirmed by ALONDRA CALDWELL, MAYO ([id number]), news assignment editor DORINDA TATE ([id number]) on 06/07/2024 8:18:11 AM Referred By: Confirmed By: MAYO CANTU MD
[2024-06-06 16:35] LABS: Absolute Lymphocyte Count 2.41 X10^3/uL (0.83-4.51); Absolute Neutrophil Count 6.3 X10^3/uL (2.0-7.7); Basophil# 0.11 X10^3/uL; Basophil% 1.1 % (0-1); Eosinophil# 0.23 X10^3/uL; Eosinophils% 2.3 % (0-5); Hematocrit 53.3 % (40-54); Lymphocyte # 2.41 X10^3/ul (0.83-4.51); Lymphocyte % 24.4 % (19-41); Mean Corp Hgb Conc 34.9 g/dL (32-36); Mean Corpuscular Hgb 30.3 pg (27.0-32.0); Mean Corpuscular Volume 86.8 fL (80-94); Mean Platelet Vol. 9.3 fl (6.2-12.0); Monocyte# 0.76 X10^3/uL; Monocyte% 7.7 % (0-10); NRBC Flagged by Analyzer 0 % (0-5); Neutrophil # 6.31 X10^3/uL (2.7-7.7); Platelet Count 269 K/mm3 (150-450); RBC Distribution Width CV 13.5 % (11.6-14.6); RBC Distribution Width SD 42.3 fl (35.1-43.9); Red Blood Count 6.14 M/mm3 (4.6-6.2); White Blood Count 9.9 K/mm3 (4.4-11.0)
[2024-06-06 16:39] LABS: International Normalized Ratio 1.2; Partial Thromboplast Time 30.8 Seconds (24.1-36.2)
[2024-06-06 16:52] LABS: Differential Indicated SCAN CRITERIA MET; Hemoglobin 18.6 g/dL (13.0-16.5)
[2024-06-06 17:05] LABS: Anion Gap 9 (5-15); BUN 28 mg/dL (7-18); BUN/Creat Ratio 12.5 RATIO (10-20); Calcium,Total 9.7 mg/dL (8.5-10.1); Chloride 109 mmol/L (98-107); Creatinine, Serum 2.24 mg/dL (0.70-1.30); EST Glomerular Filtration Rate 32 mL/min (>60); Est Glom Filt Rate - Afr Amer 38 mL/min (>60); Estimated Creatinine Clearance 44.66 ml/min; Glucose 225 mg/dL (74-106); Sodium Level 141 mmol/L (136-145); Troponin-I HS 224 pg/mL (3.0-78.0)
[2024-06-06 17:17] LABS: D-Dimer Quantitative (DVT/PE) 0.27 FEU/ug/m (0.27-0.49)
[2024-06-06] MEDS: Aspirin 81 MG TAB.CHEW 324 MG PO (17:20)
--- NOTE | 2024-06-06 17:30 | RAD_ITS ---
STUDY: X-RAY CHEST REASON FOR EXAM: Male, 63 years old. Dyspnea TECHNIQUE: Frontal and lateral views of the chest. COMPARISON: May 05, 2024 FINDINGS: Elevated right hemidiaphragm and subsegmental atelectasis. Otherwise The lungs are clear and expanded. There is no demonstrated pleural abnormality. Normal size heart. Normal mediastinum and ivon. Normal visualized pulmonary arteries. Normal visualized aortic arch and descending thoracic aorta. Normal visualized thoracic spine. Normal visualized ribs, clavicles, and shoulders. There is no demonstrated abnormality of the visualized soft tissue structures of the upper abdomen. RAD/Chest PA and Lateral IMPRESSION: Right lower lobe subsegmental atelectasis Electronically Signed: Jeff Stuart MD at 19:34 EST ,
[2024-06-06 17:32] LABS: Platelet Estimate ADEQUATE (ADEQ); Red Cell Morphology NORM C+C NORMAL (NORM C&C)
[2024-06-06 18:23] LABS: Troponin-I HS 224 pg/mL (3.0-78.0)
--- NOTE | 2024-06-06 18:50 | PCM.HP.STD ---
HPI - General General Date of Admission: 06/06/24 Date of Service: 06/06/24 Chief Complaint: Worsening shortness of breath HPI Narrative TIERA MCCRACKEN, is a 63 M who presented to [facility] ED on 06/06/2024 with worsening shortness of breath. Patient has history of A-fib and had an ablation done at [facility] on 06/02. Reportedly had no intraoperative complications and was discharged home that day. Since then he has had worsening shortness of breath with exertion so he came in today for further evaluation. In the ED he was hypertensive to the 160s systolic but satting in the mid 90s on room air and otherwise stable. Chest x-ray showed elevated right hemidiaphragm and right lower lobe subsegmental atelectasis, was otherwise benign. CBC notable for hemoglobin mildly elevated at 18.6. BMP with creatinine 2.24, mildly up from baseline around 1.7-1.9. BNP normal. Initial troponin was 224, and repeat 2 hours later was again 224. EKG showed normal sinus rhythm, incomplete RBBB, no acute ST changes. Given his elevated troponin that is stable and symptoms on presentation with recent ablation, hospitalist was contacted for admission. I saw the patient at bedside in the ED, was present. Patient was mildly fatigued appearing but otherwise sitting up comfortably in bed and in no acute distress. Denied any shortness of breath at rest. Denied any chest pain. States he has felt more short of breath with exertion over the past few days. Denies any lower extremity swelling. Has had a mild dry cough but no sputum production. Denies any URI symptoms. Denies any fevers or chills. No other pain or discomfort at this time. Will be admitted for further management. [facility] Medical History Kidney stones Kidney disease GERD (gastroesophageal reflux disease) Non-smoker Atrial fibrillation Gout Obesity CKD (chronic kidney disease), stage III Coronary artery disease Hyperlipidemia Diabetes mellitus Hypertension Paroxysmal atrial fibrillation Home Medications ?Medication ?Instructions ?Recorded ?Last Taken ?Type apixaban 5 mg tablet (Eliquis) 5 mg PO BID #60 tabs 12/04/23 Unknown Rx omega 6-nxc-yor-fish oil 300 2 cap PO BID 12/04/23 Unknown History mg-1,000 mg capsule (Fish Oil) aspirin 81 mg tablet,delayed 81 mg PO DAILY 01/19/24 Unknown History release (Adult Aspirin Regimen) empagliflozin 25 mg tablet 25 mg PO DAILY 01/19/24 Unknown History (Jardiance) multivitamin 1 tab PO DAILY 01/19/24 Unknown History pantoprazole 40 mg tablet,delayed 40 mg PO Q12H 01/19/24 Unknown History release amiodarone 200 mg tablet 200 mg PO DAILY 03/06/24 Unknown History atorvastatin 80 mg tablet 80 mg PO DAILY 03/06/24 Unknown History Allergy/AdvReac Type Severity Reaction Status Date / Time metformin AdvReac Nausea/Vom/ Verified 06/06/24 19:03 Diarrhea Family History Mother CVA (cerebral vascular accident) Hypertension HLD (hyperlipidemia) Father HLD (hyperlipidemia) Myocardial infarction Hypertension Heart disease CAD (coronary artery disease) Surgical History S/P hernia repair Hx of CABG Social History household members: spouse housing: house Smoking Status: Never smoker alcohol intake: never substance use type: does not use ROS Constitutional Constitutional: Reports fatigue; Denies chills, fever(s) or weakness Eyes Eyes: Denies change in vision Cardiovascular Cardiovascular: Reports dyspnea on exertion; Denies chest pain, edema, lightheadedness or palpitations Respiratory/Chest Respiratory/Chest: Reports cough; Denies productive cough, shortness of breath at rest or wheezing Gastrointestinal Gastrointestinal: Denies abdominal pain Neurologic Neurologic: Denies dizziness or headache(s) Vital Signs Vital Signs Vital Signs: 06/06/24 15:26 06/06/24 15:32 06/06/24 17:25 Temperature 97.7 F L Temperature Source Oral Pulse Rate 81 67 Respiratory Rate 18 18 Respiratory Effort Short of Breath Respiratory Depth Normal Respiratory Pattern Normal Blood Pressure 166/99 H 141/80 H Blood Pressure Mean 121 100 Pulse Ox 94 95 Oxygen Delivery Method Room Air Room Air Room Air 06/06/24 18:47 Temperature Temperature Source Pulse Rate 65 Respiratory Rate 18 Respiratory Effort Respiratory Depth Respiratory Pattern Blood Pressure 157/88 H Blood Pressure Mean 111 Pulse Ox 92 Oxygen Delivery Method Room Air Weight Weight: 117.48 kg Body Mass Index (BMI) 35.1 Physical Exam Const alert, oriented x3 and no apparent distress Constitutional Narrative: Middle-age male, class II obesity, mildly fatigued appearing, otherwise sitting up comfortably in bed, conversing normally, in no acute distress. General Appearance: cooperative and comfortable HEENT normocephalic, head/scalp atraumatic, hearing grossly normal bilaterally and nasal mucous membranes and turbinates normal HEENT Narrative: Somewhat dry mucous membranes. Eyes PERRL, EOMs intact bilaterally and conjunctivae normal Neck full ROM Chest inspection of chest normal Resp normal respiratory effort, normal air movement, no use of accessory muscles and clear to auscultation bilaterally Cardio regular rate, regular rhythm, no murmurs and peripheral pulses 2+ throughout GI normal to inspection, nondistended, normoactive bowel sounds, soft to palpation, non-tender and non-distended Back/Spine normal ROM Extremity normal to inspection, full ROM and no pedal edema Skin no rashes or lesions noted Psych mental status grossly normal Results Lab / Micro Data 06/06/24 15:40 06/06/24 15:40 Labs: Laboratory Results - last 24 hr 06/06/24 15:40: WBC 9.9, RBC 6.14, Hgb 18.6 H*, Hct 53.3, MCV 86.8, MCH 30.3, MCHC 34.9, RDW Std Deviation 42.3, RDW Coeff of Ghulam 13.5, Plt Count 269, MPV 9.3, Immature Gran % (Auto) 0.500, Neut % (Auto) 64.0, Lymph % (Auto) 24.4, Butts % (Auto) 7.7, Eos % (Auto) 2.3, Baso % (Auto) 1.1 H, Absolute Neuts (auto) 6.3, Absolute Lymphs (auto) 2.41, Nucleated RBC % 0, Diff Path Review October, Platelet Estimate ADEQUATE, RBC Morphology NORM C+C, PT 15.0 H, INR 1.2, APTT 30.8, D-Dimer Quant (PE/DVT) 0.27, Sodium 141, Potassium 4.0, Chloride 109 H, Carbon Dioxide 23.0, Anion Gap 9, BUN 28 H, Creatinine 2.24 H, Estim Creat Clear Calc 44.66, Est GFR (MDRD) Af Amer 38 L, Est GFR (MDRD) Non-Af 32 L, BUN/Creatinine Ratio 12.5, Glucose 225 H, Calcium 9.7, Troponin I High Sens 224 H* 06/06/24 17:35: Troponin I High Sens 224 H* Assessment & Plan Assessment/Plan (1) Elevated troponin: PLAN: Plan Patient is a 63-year-old male who presented [facility] ED on 06/06/2024 with worsening shortness of breath. 1. Elevated troponins ? Admit under observation status to PCU. Troponins 224 > 224 in the ED. No EKG changes noted. Seems most likely multifactorial from mild demand ischemia from dehydration on admit and recent ablation. BNP normal and chest x-ray benign, and patient breathing comfortably on room air at rest. Last echo done in February and showed EF 70%, stage I diastolic dysfunction, moderate concentric LV hypertrophy, no other significant abnormalities. Will trend third troponin and continue cardiac telemetry. Limited echo ordered. If these things are unremarkable, patient will be okay for discharge home tomorrow. 2. A-fib with recent radiofrequency ablation ? Had ablation done at [facility] on 06/02. Reportedly tolerated procedure well. EKG showed normal sinus rhythm on admit. Continue home amiodarone and Eliquis. 3. History of CAD with CABG, hypertension, hyperlipidemia ? Had CABG x 1 on 12/23/23. Mildly hypertensive on admit but otherwise hemodynamically stable. Continue home aspirin and statin. Notably not on any antihypertensive agents at this time. 4. Type 2 diabetes mellitus ? Blood glucose 225 on admit. A1c 6.6%. Hold home Jardiance. Will start sliding scale insulin with meals while inpatient. 5. Mild creatinine elevation in setting of CKD stage III ? Creatinine 2.24 on admit, baseline appears to be 1.7-2.1. Given 1 L of IV fluids in the ED. Follow-up a.m. BMP and monitor urine output. 6. Class II obesity ? BMI 35 on admit. Complicates hospital course, care and prognosis. 7. GERD ? Continue home PPI. DVT prophylaxis: Not indicated, on Eliquis CODE STATUS: Full code, verified Expected disposition: Home, 1 to 2 days Total clinical time spent by myself addressing the patient's medical issues, reviewing all the data, and collaborating with patient's care team: 55 minutes. Charges/Coding Visit Charges Inpatient E&M: 01570 Init Hosp L2
[2024-06-06 19:26] LABS: Hemoglobin A1c 6.6 % (3.8-5.6)
[2024-06-06] MEDS: 0.9% Normal Saline (1000mL) 1,000 ML 999 ML IV (19:38)
[2024-06-06 19:45] LABS: BNP,B-Type NATRIURETIC PEPTIDE 23.8 pg/mL (0-100)
--- NOTE | 2024-06-06 21:28 | ECHOL_ITS ---
Reason For Study: CONGESTIVE HEART FAILURE Procedure This was a limited 2D transthoracic echocardiogram. The study was technically difficult. Exam performed portable in patient room. Left Ventricle Normal LV size. Moderate eccentric left ventricular hypertrophy. Left ventricular systolic function is normal. The left ventricular ejection fraction is 65 %. Resting LV gradient 16 mmHg. Valsalva LV gradient 62 mmHg. No regional wall motion abnormalities noted. Right Ventricle Normal RV size. Normal systolic function. Atria Normal left atrium. Normal right atrium. Mitral Valve Normal mitral valve. Tricuspid Valve Normal tricuspid valve. Aortic Valve Trisinus/trileaflet aortic valve. Pulmonic Valve Normal pulmonic valve. Great Vessels Normal aortic root. The pulmonary artery is normal size. Inferior vena cava collapse with respiration. Pericardium/Pleural No pericardial effusion. MMode/2D Measurements & Calculations LVIDd: 3.9 cm IVSd: 1.6 cm LAV(MOD-bp): 37.6 ml LVIDs: 2.1 cm LVPWd: 1.2 cm LAV(MOD-bp) Indexed: 15.7 ml/m2 RVDd: 2.7 cm FS: 46.9 % LAV(MOD-sp2): 37.8 ml LAV(MOD-sp4): 38.0 ml SV(MOD-sp4): 45.4 ml LVAd ap4: 24.9 cm2 LVAd ap2: 21.8 cm2 LVLd ap4: 8.0 cm LVLd ap2: 8.3 cm SI(MOD-sp4): 18.9 ml/m2 EDV(MOD-sp4): 65.0 ml EDV(MOD-sp2): 47.7 ml EDV(sp4-el): 65.7 ml EDV(sp2-el): 48.4 ml LVAs ap4: 12.2 cm2 LVAs ap2: 11.4 cm2 LVLs ap4: 6.7 cm LVLs ap2: 7.1 cm ESV(MOD-sp4): 19.6 ml ESV(MOD-sp2): 16.1 ml ESV(sp4-el): 18.9 ml ESV(sp2-el): 15.5 ml EF(MOD-sp4): 69.9 % EF(MOD-sp2): 66.3 % EF(sp4-el): 71.3 % SV(MOD-sp2): 31.6 ml SV(sp4-el): 46.8 ml Ao sinus diam: 3.5 cm SI(MOD-sp2): 13.2 ml/m2 Ao ST Junction: 3.0 cm LA dimension(2D): 4.0 cm LA A4 area: 15.8 cm2 RA A4 area: 9.8 cm2 Doppler Measurements & Calculations Ao V2 max: 158.0 cm/sec Ao max P.0 mmHg Ao V2 mean: 129.6 cm/sec Ao mean P.3 mmHg Ao V2 VTI: 34.0 cm ECHO/Echo, Limited Study Interpretation Summary Normal LV size. The left ventricular ejection fraction is 65 %. Left ventricular systolic function is normal. Moderate eccentric left ventricular hypertrophy. Valsalva LV gradient 62 mmHg. Ordering Physician: Easton Orr Performed By: Cecilia Duque RDCS and Student
[2024-06-06] MEDS: Atorvastatin Calcium 80 MG Tablet PO (21:49)
[2024-06-06] MEDS: APIXABAN 5 MG TABLET PO (21:50)
[2024-06-06] MEDS: Pantoprazole Sodium 40 MG Tablet PO (21:50)
[2024-06-06 22:01] LABS: Bedside Glucose 98 mg/dL (74-106)
[2024-06-07 03:00] VITALS: BP 135/80; PULSE 66; RESP 18; TEMP 36; O2SAT 92
[2024-06-07 03:36] LABS: Troponin-I HS 208 pg/mL (3.0-78.0)
[2024-06-07 07:07] LABS: Bedside Glucose 137 mg/dL (74-106)
[2024-06-07 07:43] VITALS: O2SAT 94
[2024-06-07] MEDS: Aspirin E.C. 81 MG Tablet PO (08:08)
[2024-06-07] MEDS: Amiodarone 200 MG Tablet PO (08:08)
--- NOTE | 2024-06-07 09:00 | PN.HOSP_ITS ---
Reason for Visit Reason for Visit: Diagnoses Other specified abnormal findings of blood chemistry (06/06/24) Subjective Subjective Has been having RIVERA since his ablation last week. Objective Data Objective Data Vital Signs: Vital Signs Temp Pulse Resp BP Pulse Ox O2 Del Method 36.0 C L 66 18 135/80 H 94 Room Air 06/07/24 03:00 06/07/24 03:00 06/07/24 03:00 06/07/24 03:00 06/07/24 07:43 06/07/24 08:34 Oxygen Delivery Method Room Air Weight: 119.9 kg Body Mass Index (BMI) 35.8 Intake & Output: Intake and Output for Last 24 Hours 06/05/24 06/06/24 06/07/24 23:59 23:59 23:59 Intake Total 1000 / 1240 240 / 240 Balance 1000 / 1240 240 / 240 Lab / Micro Data 06/06/24 15:40 06/06/24 15:40 Labs: Laboratory Results - last 24 hr 06/06/24 15:40: WBC 9.9, RBC 6.14, Hgb 18.6 H*, Hct 53.3, MCV 86.8, MCH 30.3, MCHC 34.9, RDW Std Deviation 42.3, RDW Coeff of Ghulam 13.5, Plt Count 269, MPV 9.3, Immature Gran % (Auto) 0.500, Neut % (Auto) 64.0, Lymph % (Auto) 24.4, [place] % (Auto) 7.7, Eos % (Auto) 2.3, Baso % (Auto) 1.1 H, Absolute Neuts (auto) 6.3, Absolute Lymphs (auto) 2.41, Nucleated RBC % 0, Diff Path Review October, Platelet Estimate ADEQUATE, RBC Morphology NORM C+C, PT 15.0 H, INR 1.2, APTT 30.8, D-Dimer Quant (PE/DVT) 0.27, Sodium 141, Potassium 4.0, Chloride 109 H, Carbon Dioxide 23.0, Anion Gap 9, BUN 28 H, Creatinine 2.24 H, Estim Creat Clear Calc 44.66, Est GFR (MDRD) Af Amer 38 L, Est GFR (MDRD) Non-Af 32 L, BUN/Creatinine Ratio 12.5, Glucose 225 H, Hemoglobin A1c 6.6 H, Calcium 9.7, T roponin I High Sens 224 H*, B-Natriuretic Peptide 23.8 06/06/24 17:35: Troponin I High Sens 224 H* 06/06/24 21:08: POC Glucose 98 06/07/24 02:42: Troponin I High Sens 208 H* 06/07/24 06:50: POC Glucose 137 H Radiography Diagnostic Testing: Radiology Impression Chest X-Ray 06/06/24 17:30 IMPRESSION: Right lower lobe subsegmental atelectasis Electronically Signed: Jeff Stuart MD at 19:34 EST Reading Location ID and State: [address] [place] [address] Tel , Service support , Physical Exam Const alert and no apparent distress HEENT head/scalp atraumatic and moist oral mucous membranes Resp normal respiratory effort, no retractions and no use of accessory muscles Cardio regular rate, regular rhythm, S1 normal heart sound and S2 normal heart sound GI normal to inspection, nondistended, normoactive bowel sounds, soft to palpation and non-distended Assessment & Plan Assessment/Plan (1) Elevated troponin: PLAN: Plan Dyspnea on exertion * D-dimer negative. elevated troponins may be due to recent ablation. Will check stress test. Chronic conditions: * A-fib with recent radiofrequency ablation? Had ablation done at [facility] on 06/02. Reportedly tolerated procedure well. EKG showed normal sinus rhythm on admit. Continue home amiodarone and Eliquis. * History of CAD with CABG, hypertension, hyperlipidemia? Had CABG x 1 on 12/23/23. Mildly hypertensive on admit but otherwise hemodynamically stable. Continue home aspirin and statin. Notably not on any antihypertensive agents at this time. * Type 2 diabetes mellitus? Blood glucose 225 on admit. A1c 6.6%. Hold home Jardiance. Will start sliding scale insulin with meals while inpatient. * Mild creatinine elevation in setting of CKD stage III Creatinine 2.24 on admit, baseline appears to be 1.7-2.1. Given 1 L of IV fluids in the ED. Follow-up a.m. BMP and monitor urine output. * Class II obesity? BMI 35 on admit. Complicates hospital course, care and prognosis. * GERD? Continue home PPI. DVT prophylaxis: Not indicated, on Eliquis CODE STATUS: Full code, verified Expected disposition: Home, 1 to 2 days Charges/Coding Visit Charges Inpatient E&M: 36643 Subs Hosp L2
[2024-06-07 10:42] VITALS: BP 113/67; PULSE 74; RESP 18; TEMP 36.8; O2SAT 92
[2024-06-07] MEDS: Pantoprazole Sodium 40 MG Tablet PO ×2 (10:45→21:16)
[2024-06-07] MEDS: APIXABAN 5 MG TABLET PO ×2 (10:45→21:16)
[2024-06-07] MEDS: Atorvastatin Calcium 80 MG Tablet PO (10:45)
[2024-06-07] MEDS: Insulin Lispro 100 UNIT/ML INSULN.PEN SC (10:48)
[2024-06-07 11:06] LABS: Bedside Glucose 251 mg/dL (74-106)
[2024-06-07 13:57] LABS: Pathologist Review Reviewed
[2024-06-07 14:56] VITALS: BP 140/80; PULSE 63; RESP 16; TEMP 36.5; O2SAT 92
[2024-06-07 16:34] LABS: Bedside Glucose 100 mg/dL (74-106)
[2024-06-07 21:00] VITALS: BP 138/93; PULSE 66; RESP 14; TEMP 36.8; O2SAT 94
[2024-06-07 22:22] LABS: Bedside Glucose 126 mg/dL (74-106)
[2024-06-08 02:31] VITALS: BP 126/83; PULSE 70; RESP 16; TEMP 36.6; O2SAT 95
--- NOTE | 2024-06-08 05:55 | EKG12_ITS ---
Test Reason : AM EKG Blood Pressure : */* mmHG Vent. Rate : 69 BPM Atrial Rate : 69 BPM P-R Int : 152 ms QRS Dur : 96 ms QT Int : 426 ms P-R-T Axes : 22 70 38 degrees QTcB Int : 456 ms Normal sinus rhythm Normal ECG When compared with ECG of 06-Jun-2024 15:34, No significant change was found Confirmed by ALONDRA CALDWELL, MAYO ([id number]), book editor DORINDA TATE ([id number]) on 06/08/2024 2:15:39 PM Referred By: Confirmed By: MAYO CANTU MD
[2024-06-08] MEDS: Aspirin E.C. 81 MG Tablet PO (06:13)
[2024-06-08 06:33] LABS: Bedside Glucose 125 mg/dL (74-106)
[2024-06-08 07:45] VITALS: O2SAT 94
[2024-06-08 08:00] VITALS: O2SAT 93
[2024-06-08 08:30] VITALS: BP 136/91; PULSE 68; RESP 16; TEMP 36.7; O2SAT 93
[2024-06-08] MEDS: Amiodarone 200 MG Tablet PO (08:31)
[2024-06-08 09:58] LABS: Troponin-I HS 119 pg/mL (3.0-78.0)
[2024-06-08 12:23] LABS: Bedside Glucose 130 mg/dL (74-106)
--- NOTE | 2024-06-08 12:40 | STRESSREP_ITS ---
Stress Test Report Pharmacologic myocardial perfusion stress test. 63-year-old man with a history of dyspnea Resting EKG demonstrates normal sinus rhythm with premature ventricular complex with a rate of 67 bpm. Resting blood pressure is 134/84 mmHg. 0.4 mg of regadenoson was infused per usual protocol followed by rapid intravenous saline flush injection. Continuous EKG monitoring was performed. The maximum heart rate was 86 bpm which was 54% of max impacted heart rate the maximum workload was 1 metabolic equivalent. At rest there were no ST or T wave changes noted to suggest ischemia and at peak infusion nonspecific ST changes were noted which did not meet the criteria for ischemia. No clinical angina is noted. The final blood pressure was 120/80 mmHg. Myocardial perfusion protocol. 15 mCi of technetium 99m sestamibi was injected at rest. 0.4 mg of regadenoson was infused per usual protocol. At peak infusion 44 mCi of technetium 99m s estamibi was injected stress images were obtained stress and rest images were reconstructed and compared in the short axis vertical long and horizontal long axis. Gated images were also obtained. Perfusion SPECT analysis: Review of the stress images demonstrate normal uptake of tracer noted in all areas of the myocardium. The resting images similar demonstrated normal uptake of tracer noted in all areas of the myocardium. No areas of reversibility are noted to suggest ischemia and no previous infarct is noted. Gated SPECT analysis: The gated ejection fraction is 76%. Conclusion: Normal pharmacologic myocardial perfusion stress test. Preserved ejection fraction.
[2024-06-08 13:41] VITALS: BP 151/93; PULSE 72; RESP 16; TEMP 36.6; O2SAT 96
[2024-06-08] MEDS: APIXABAN 5 MG TABLET PO (13:48)
[2024-06-08] MEDS: Pantoprazole Sodium 40 MG Tablet PO (13:49)
[2024-06-08] MEDS: Atorvastatin Calcium 80 MG Tablet PO (13:49)
--- NOTE | 2024-06-08 13:49 | DS.PCM_ITS ---
Providers Date of Admission: 06/06/24 Primary Care Physician: Nursi Hoffman, GÉNESIS-C Reason For Visit: SHORTNESS OF BREATH, ELEVATED TROPONIN Diagnosis Discharge Diagnosis (1) Elevated troponin: Status: Acute Code(s): R79.89 - Other specified abnormal findings of blood chemistry Plan Dyspnea on exertion * D-dimer negative. elevated troponins may be due to recent ablation. Stress test negative. * Likely post-ablation dyspnea, which he was warned about. Discharge home. Chronic conditions: * A-fib with recent radiofrequency ablation? Had ablation done at [facility] on 06/02. Reportedly tolerated procedure well. EKG showed normal sinus rhythm on admit. Continue home amiodarone and Eliquis. * History of CAD with CABG, hypertension, hyperlipidemia? Had CABG x 1 on 12/23/23. Mildly hypertensive on admit but otherwise hemodynamically stable. Continue home aspirin and statin. Notably not on any antihypertensive agents at this time. * Type 2 diabetes mellitus? Blood glucose 225 on admit. A1c 6.6%. Hold home Jardiance. Will start sliding scale insulin with meals while inpatient. * Mild creatinine elevation in setting of CKD stage III Creatinine 2.24 on admit, baseline appears to be 1.7-2.1. Given 1 L of IV fluids in the ED. Follow-up a.m. BMP and monitor urine output. * Class II obesity? BMI 35 on admit. Complicates hospital course, care and prognosis. * GERD? Continue home PPI. DVT prophylaxis: Not indicated, on Eliquis CODE STATUS: Full code, verified Expected disposition: Home, 1 to 2 days Medications at Discharge Home Medications apixaban 5 mg tablet (Eliquis) 5 mg PO BID #60 tabs 12/04/23 omega 9-okc-qtm-fish oil 300 mg-1,000 mg capsule (Fish Oil) 2 cap PO BID 12/04/23 aspirin 81 mg tablet,delayed release (Adult Aspirin Regimen) 81 mg PO DAILY 01/19/24 empagliflozin 25 mg tablet (Jardiance) 25 mg PO DAILY 01/19/24 multivitamin 1 tab PO DAILY 01/19/24 pantoprazole 40 mg tablet,delayed release 40 mg PO Q12H 01/19/24 amiodarone 200 mg tablet 200 mg PO DAILY 03/06/24 atorvastatin 80 mg tablet 80 mg PO DAILY 03/06/24 Physical Exam Const alert and no apparent distress HEENT normocephalic and head/scalp atraumatic Weight / BMI Weight Weight: 119.9 kg Body Mass Index (BMI) 35.8 ABG / Lab / Microbiology Data 06/06/24 15:40 06/06/24 15:40 Laboratory: Laboratory Results - last 24 hr 06/06/24 15:40: Diff Path Review Reviewed 06/07/24 16:14: POC Glucose 100 06/07/24 21:15: POC Glucose 126 H 06/08/24 06:11: POC Glucose 125 H 06/08/24 09:08: Troponin I High Sens 119 H 06/08/24 11:16: POC Glucose 130 H D/C Instructions Discharge Diet: No restrictions DC O2, CPAP, BIPAP Needs Additional Home O2 Discharge instructions: No DC home with Oxygen: No Meaningful Use Info Meaningful Use Meaningful Use Diagnoses (Choose all that apply): None applicable Ischemic Stroke Statin Dosing Therapy Reference: STATIN DOSE THERAPY REFERENCE: * Patients > 75 years receive moderate or high dose statin therapy. * Patients 75 years or YOUNGER should receive HIGH intensity statin dose unless contraindicated. You will be required to document reason for non-treatment if statin daily dose does not meet guidelines. HIGH DOSE STATIN THERAPY DAILY Atorvastatin > than or = to 40 mg Rosuvastatin > than or = to 20 mg Amlodipine + Atorvastatin > than or = to 2.5/40 mg Ezetimibe + Simvastatin 10/80 mg Simvastatin 80mg Discharge Plan Admission Admit Date/Time: 06/06/24 18:51 Primary Reason for Your Visit: dyspnea Attending Provider: Edvin Hernandez Primary Care Provider: Nuris Hoffman SCIENCE PROFESSOR Consulting Providers: Easton Orr Instructions Additional Instructions / Restrictions: Your shortness of breath is likely due to the recent ablation informed by your cardiology team. Stress test was normal and your lab tests, D-dimer, was normal indicating that you do not have a blood clot in your lung. If you have any worsening of your shortness of breath notify your clinical psychology professor to see if there is any additional measures that would need to be done. Discharge Orders/Prescriptions Prescriptions: Continued Jardiance 25 mg tablet 25 mg PO DAILY pantoprazole 40 mg tablet,delayed release (DR/EC) 40 mg PO Q12H multivitamin Tablet 1 tab PO DAILY aspirin [Adult Aspirin Regimen] 81 mg tablet,delayed release (DR/EC) 81 mg PO DAILY atorvastatin 80 mg tablet 80 mg PO DAILY amiodarone 200 mg tablet 200 mg PO DAILY omega 2-kqz-ygi-fish oil [Fish Oil] 300-1,000 mg capsule 2 cap PO BID Eliquis 5 mg tablet 5 mg PO BID Qty: 60 0RF Referrals / Follow Up: Nuris Hoffman SCIENCE PROFESSOR, SCIENCE PROFESSOR-C [Primary Care Provider] - Within 2 Weeks Disposition Disposition (needs filled in before D/C Order can be placed): Home, Self Care Charges/Coding Visit Charges Inpatient E&M: 04508 Disch Hosp
--- NOTE | 2024-06-08 14:26 | PHA.DC.MR.R ---
Pharmacy [place] Med Reconciliation Pharmacy Service has performed discharge medication reconciliation for this patient. The patient's discharge medication list was reviewed for discrepancies and discrepancies were resolved. Medications at Discharge Home Medications apixaban 5 mg tablet (Eliquis) 5 mg PO BID #60 tabs 12/04/23 omega 3-vmi-hpc-fish oil 300 mg-1,000 mg capsule (Fish Oil) 2 cap PO BID 12/04/23 aspirin 81 mg tablet,delayed release (Adult Aspirin Regimen) 81 mg PO DAILY 01/19/24 empagliflozin 25 mg tablet (Jardiance) 25 mg PO DAILY 01/19/24 multivitamin 1 tab PO DAILY 01/19/24 pantoprazole 40 mg tablet,delayed release 40 mg PO Q12H 01/19/24 amiodarone 200 mg tablet 200 mg PO DAILY 03/06/24 atorvastatin 80 mg tablet 80 mg PO DAILY 03/06/24
--- NOTE | 2024-06-08 15:07 | CASEMGMT ---
Patient has order for discharge. RN CM in to discuss needs at discharge. Patient denies needs or help at discharge. Patient had no further questions or concerns.
== END 2024-06-08 13:56 | disposition home or self-care (01) ==
LOC: ED 19:20 → PCU 19:35
PROVIDERS: Family Medicine; Admitting Provider Hospitalist; Emergency Provider Emergency Medicine; PCP Registered Nurse
DX: R06.09 Other forms of dyspnea (principal); I48.0 Paroxysmal atrial fibrillation; E11.22 Type 2 diabetes mellitus with diabetic chronic kidney disease; N18.30 Chronic kidney disease, stage 3 unspecified; E78.5 Hyperlipidemia, unspecified; R79.89 Other specified abnormal findings of blood chemistry; Z79.01 Long term (current) use of anticoagulants; Z79.84 Long term (current) use of oral hypoglycemic drugs; J98.11 Atelectasis; I25.10 Atherosclerotic heart disease of native coronary artery without angina pectoris; Z79.82 Long term (current) use of aspirin; E66.812 Obesity, class 2; Z68.35 Body mass index [BMI] 35.0-35.9, adult; K21.9 Gastro-esophageal reflux disease without esophagitis; I12.9 Hypertensive chronic kidney disease with stage 1 through stage 4 chronic kidney disease, or unspecified chronic kidney disease; Z79.899 Other long term (current) drug therapy
CPT/HCPCS: 36415; 71046; 78452; 80048; 82962; 83036; 83880; 84484; 85025; 85379; 85610; 85730; 93005; 93017; 93308; 96360; 96361; 99221; 99285; A9500; A4216; G0378; J2785